=== PATIENT | female | born 1950 | race Caucasian/White ===

== ENCOUNTER 2017-12-20 08:00 | Outpatient (CLI) | payer MEDICARE, MEDICAID, SELFPAY ==
[2017-12-20 09:29] LABS: ALT 61 U/L (12-78); AST 56 U/L (15-37); Albumin 3.3 g/dL (3.4-5.0); Alkaline Phosphatase 86 U/L (46-116); Anion Gap 6.6 mmol/L (3-11); BUN 12 mg/dL (7-18); Bilirubin, Total 0.7 mg/dL (0.2-1.0); CO2 26.4 mmol/L (21.0-32.0); CREATININE 1.13 mg/dL (0.55-1.02); Calcium 8.3 mg/dL (8.5-10.1); Chloride 107 mmol/L (98-107); Cholesterol 166 mg/dL (50-200); Estimated GFR 48.03 (mL/min/1.73m2); Glucose 113 mg/dL (70-100); HDL Cholesterol 44 mg/dL (40-60); LDL CHOLESTEROL 106 mg/dL (<100); Potassium 4.3 mmol/L (3.5-5.1); Sodium 140 mmol/L (136-145); Triglyceride 108 mg/dL (30-150)
== END 2017-12-20 08:20 ==
PROVIDERS: PCP Physician Assistant Medical; Visit Provider Physician Assistant Medical
DX: I10 Essential (primary) hypertension (principal); R78.5 Finding of other psychotropic drug in blood
CPT/HCPCS: 36415; 80053; 80061; 83721

== ENCOUNTER 2018-02-08 02:23 | Outpatient (CLI) | payer MEDICARE, MEDICAID, SELFPAY ==
[2018-02-08 08:54] LABS: ALT 63 U/L (12-78); AST 46 U/L (15-37); Alkaline Phosphatase 80 U/L (46-116); Anion Gap 8.9 mmol/L (3-11); BUN 12 mg/dL (7-18); Bilirubin, Total 0.3 mg/dL (0.2-1.0); CO2 24.1 mmol/L (21.0-32.0); Calcium 8.7 mg/dL (8.5-10.1); Chloride 109 mmol/L (98-107); Cholesterol 160 mg/dL (50-200); Estimated GFR 49.54 (mL/min/1.73m2); Glucose 124 mg/dL (70-100); HDL Cholesterol 43 mg/dL (40-60); LDL CHOLESTEROL 100 mg/dL (<100); Potassium 4.3 mmol/L (3.5-5.1); Sodium 142 mmol/L (136-145); Total Protein 6.6 g/dL (6.4-8.2); Triglyceride 107 mg/dL (30-150)
== END 2018-02-08 02:43 ==
PROVIDERS: PCP Physician Assistant Medical; Visit Provider Physician Assistant Medical
DX: I10 Essential (primary) hypertension (principal); E78.5 Hyperlipidemia, unspecified
CPT/HCPCS: 36415; 80053; 80061; 83721

== ENCOUNTER 2018-03-18 08:45 | Outpatient (REF) | payer MEDICARE, MEDICAID, SELFPAY ==
[2018-03-18 22:44] LABS: ALT 81 U/L (12-78); AST 59 U/L (15-37); Albumin 3.3 g/dL (3.4-5.0); Alkaline Phosphatase 85 U/L (46-116); BUN 12 mg/dL (7-18); Bilirubin, Total 0.6 mg/dL (0.2-1.0); CREATININE 0.92 mg/dL (0.55-1.02); Calcium 8.5 mg/dL (8.5-10.1); Chloride 107 mmol/L (98-107); Glucose 129 mg/dL (70-100); Potassium 4.1 mmol/L (3.5-5.1); Sodium 142 mmol/L (136-145)
== END 2018-03-18 09:05 ==
LOC: NCHCN 08:45
PROVIDERS: PCP Physician Assistant Medical; Visit Provider Nurse Practitioner Family
DX: I10 Essential (primary) hypertension (principal); R60.0 Localized edema
CPT/HCPCS: 80053

== ENCOUNTER 2018-12-30 00:51 | Outpatient (CLI) | payer MEDICARE, MEDICAID, SELFPAY ==
--- NOTE | 2018-12-30 13:02 | DI.MAMMO_ITS ---
EXAM: MG mammo screening CLINICAL HISTORY: Screening, Z12.39 FINDINGS: The breast tissue is of moderate radiodensity. There is no dominant mass. Again demonstrated are calc ifications in the medial portion of each breast unchanged. There has been no interval change when co mpared with the prior images. IMPRESSION: No evidence of malignancy, category 1. Breast density category B. Follow-up surveillance with the ro utine annual screening mammography is recommended.
== END 2018-12-30 01:11 ==
PROVIDERS: PCP Physician Assistant Medical; Visit Provider Nurse Practitioner Family
DX: Z12.31 Encounter for screening mammogram for malignant neoplasm of breast (principal)
CPT/HCPCS: 77063; 77067

== ENCOUNTER 2019-02-19 02:30 | Outpatient (CLI) | payer MEDICARE, MEDICAID, SELFPAY ==
[2019-02-19 09:41] LABS: Anion Gap 9.5 mmol/L (3-11); BUN 10 mg/dL (7-18); CO2 26.5 mmol/L (21.0-32.0); CREATININE 1.14 mg/dL (0.55-1.02); Calcium 8.3 mg/dL (8.5-10.1); Calculated LDL 89 mg/dL; Chloride 107 mmol/L (98-107); Cholesterol 159 mg/dL (50-200); Glucose 116 mg/dL (70-100); HDL Cholesterol 38 mg/dL (40-60); Potassium 4.2 mmol/L (3.5-5.1); Sodium 143 mmol/L (136-145); Triglyceride 160 mg/dL (30-150)
== END 2019-02-19 02:50 ==
PROVIDERS: PCP Nurse Practitioner Family; Visit Provider Nurse Practitioner Family
DX: R73.9 Hyperglycemia, unspecified (principal); I10 Essential (primary) hypertension; E78.5 Hyperlipidemia, unspecified
CPT/HCPCS: 36415; 80048; 80061

== ENCOUNTER 2019-04-24 02:23 | Outpatient (CLI) | payer MEDICARE, MEDICAID, SELFPAY ==
--- NOTE | 2019-04-24 13:44 | DI.DEXA_ITS ---
EXAM: XR DEXA BONE DENSITY W/WO ERIS CLINICAL HISTORY: SCREENING FOR OSTEOPOROSIS IN POSTMENOPAUSAL WOMAN, Z78.0 TECHNIQUE: DEXA scan was performed according to the usual protocol. COMPARISON: No exams were available for comparison FINDINGS: Findings for lumbar spine scanning are T-score 0.3. Previous examination of September 2007 showed lumbar T-score -0.1. Findings for left hip scanning are T-score -0.4 with left femoral neck T-score -0.1. Prior study of September 2007 showed left hip T-score -0.2. Left forearm scanning shows T-score -1.4. Lateral vertebral scanogram shows no evidence of a vertebral compression fracture. IMPRESSION: Findings consistent with osteopenia according to the WHO criteria.
== END 2019-04-24 02:43 ==
PROVIDERS: PCP Nurse Practitioner Family; Visit Provider Nurse Practitioner Family
DX: Z78.0 Asymptomatic menopausal state; M85.88 Other specified disorders of bone density and structure, other site
CPT/HCPCS: 77080

== ENCOUNTER 2019-05-26 11:41 | Outpatient (REF) | payer MEDICARE, MEDICAID, SELFPAY ==
[2019-05-26 19:11] LABS: Anion Gap 8.8 mmol/L (3-11); BUN 15 mg/dL (7-18); CO2 27.2 mmol/L (21.0-32.0); CREATININE 1.11 mg/dL (0.55-1.02); Calcium 8.8 mg/dL (8.5-10.1); Chloride 107 mmol/L (98-107); Estimated GFR 48.88 (mL/min/1.73m2); Glucose 157 mg/dL (74-106); Sodium 143 mmol/L (136-145)
[2019-05-26 19:27] LABS: Hemoglobin A1C 5.5 % (3.8-5.6)
== END 2019-05-26 12:01 ==
LOC: NCHCN 11:41
PROVIDERS: PCP Nurse Practitioner Family; Visit Provider Nurse Practitioner Family
DX: I10 Essential (primary) hypertension (principal); R73.9 Hyperglycemia, unspecified
CPT/HCPCS: 80048; 83036

== ENCOUNTER 2019-12-01 11:23 | Outpatient (REF) | payer MEDICARE, MEDICAID, SELFPAY ==
[2019-12-01 20:32] LABS: Calculated LDL 102 mg/dL (<100); Cholesterol 165 mg/dL (<200); Glucose 149 mg/dL (74-106); HDL Cholesterol 44 mg/dL (40-60); Triglyceride 99 mg/dL (<150)
[2019-12-01 20:46] LABS: Creatine Kinase 70 U/L (26-192)
== END 2019-12-01 11:43 ==
LOC: NCHCN 11:23
PROVIDERS: PCP Nurse Practitioner Family; Visit Provider Nurse Practitioner Family
DX: E78.5 Hyperlipidemia, unspecified (principal); I10 Essential (primary) hypertension; R94.4 Abnormal results of kidney function studies; M85.80 Other specified disorders of bone density and structure, unspecified site; K21.9 Gastro-esophageal reflux disease without esophagitis
CPT/HCPCS: 80061; 82550; 82947

== ENCOUNTER 2019-12-08 10:56 | Outpatient (REF) | payer MEDICARE, MEDICAID, SELFPAY ==
[2019-12-08 20:04] LABS: Hemoglobin A1C 6.3 % (3.8-5.6)
== END 2019-12-08 11:16 ==
LOC: NCHCN 10:56
PROVIDERS: PCP Nurse Practitioner Family; Visit Provider Nurse Practitioner Family
DX: R73.9 Hyperglycemia, unspecified (principal)
CPT/HCPCS: 83036

== ENCOUNTER 2020-01-05 00:34 | Outpatient (CLI) | payer MEDICARE, MEDICAID, SELFPAY ==
--- NOTE | 2020-01-05 | DI.MAMMO_ITS ---
EXAM: MG MAMMO SCREENING CLINICAL HISTORY: SCREENING, Z12.39 TECHNIQUE: Bilateral full field digital CC and MLO mammographic images were obtained with 3D tomosyn thesis and utilizing computer aided detection (CAD). COMPARISON: Available for comparison. FINDINGS: Masses/Architectural Distortion: Stable scattered nodules are seen in both breasts. Microcalcifications: Stable calcifications are seen in both breasts. No suspicious microcalcificatio ns are present. Skin Thickening/Nipple Retraction: None. IMPRESSION: 1. No significant interval change with no specific features of malignancy noted. 2. Unless there is more urgent need, screening mammography is recommended, as per [employer] [place] [employer] guidelines. BI-RADS Category 2 - Benign Findings Breast Density - Category B - Scattered areas of fibroglandular density A negative radiographic report should not delay biopsy if a dominant or clinically suspicious mass is present. Up to ten percent of cancers are not identified on mammography. A negative report may reinforce clinical impression. Adenosis and dense breasts may obscure an underlying neoplasm. False positive reports average 6 to 10%. Patient will receive a letter notifying them of these results.
== END 2020-01-05 00:54 ==
PROVIDERS: PCP Nurse Practitioner Family; Visit Provider Nurse Practitioner Family
DX: Z12.31 Encounter for screening mammogram for malignant neoplasm of breast (principal); N63.20 Unspecified lump in the left breast, unspecified quadrant; N63.10 Unspecified lump in the right breast, unspecified quadrant
CPT/HCPCS: 77063; 77067

== ENCOUNTER 2020-01-12 11:10 | Outpatient (REF) | payer MEDICARE, MEDICAID, SELFPAY ==
[2020-01-12 20:17] LABS: ALT 45 U/L (14-59); AST 37 U/L (15-37); Albumin 3.3 g/dL (3.4-5.0); Alkaline Phosphatase 73 U/L (46-116); Anion Gap 9.6 mmol/L (3-11); BUN 12 mg/dL (7-18); Bilirubin, Total 0.6 mg/dL (0.2-1.0); CO2 24.4 mmol/L (21.0-32.0); CREATININE 1.08 mg/dL (0.55-1.02); Calcium 9.3 mg/dL (8.5-10.1); Chloride 106 mmol/L (98-107); Glucose 141 mg/dL (74-106); Potassium 4.3 mmol/L (3.5-5.1); Sodium 140 mmol/L (136-145); Total Protein 7.1 g/dL (6.4-8.2)
== END 2020-01-12 11:30 ==
LOC: NCHCN 11:10
PROVIDERS: PCP Nurse Practitioner Family; Visit Provider Nurse Practitioner Family
DX: I10 Essential (primary) hypertension (principal)
CPT/HCPCS: 80053

== ENCOUNTER 2020-05-31 16:53 | Outpatient (REF) | payer MEDICARE, MEDICAID, SELFPAY ==
[2020-05-31 16:02] LABS: Anion Gap 10.1 mmol/L (3-11); BUN 14 mg/dL (7-18); CO2 25.9 mmol/L (21.0-32.0); CREATININE 1.1 mg/dL (0.55-1.02); Calcium 9.1 mg/dL (8.5-10.1); Chloride 106 mmol/L (98-107); Estimated GFR 49.25 (mL/min/1.73m2); Glucose 144 mg/dL (74-106); Potassium 4.3 mmol/L (3.5-5.1); Sodium 142 mmol/L (136-145)
== END 2020-05-31 16:54 | disposition home or self-care (01) ==
LOC: NCHCN 16:53
PROVIDERS: PCP Nurse Practitioner Family; Visit Provider Nurse Practitioner Family
DX: I10 Essential (primary) hypertension (principal); R94.4 Abnormal results of kidney function studies
CPT/HCPCS: 80048

== ENCOUNTER → 2020-08-27 10:52 | Outpatient (BNVA) | payer MEDICARE, MEDICAID, SELFPAY | PROVIDERS: PCP Nurse Practitioner Family; Referring Provider Nurse Practitioner Family; Visit Provider Physical Therapy Assistant | DX: Z12.11 Encounter for screening for malignant neoplasm of colon (principal); Z86.010 Personal history of colon polyps; I10 Essential (primary) hypertension ==

== ENCOUNTER 2020-09-30 07:08 | Day surgery (SDC) | payer MEDICARE, MEDICAID, SELFPAY ==
[2020-09-30 07:28] VITALS: BP 141/74; PULSE 79; RESP 18; TEMP 36.1; O2SAT 96
[2020-09-30] MEDS: Lactated Ringers 1,000 ML 80 ML IV (07:40)
--- NOTE | 2020-09-30 07:44 | W.ANESPRE ---
General Info Date of Service Date Performed: 09/30/20 Height: 5 ft 0.25 in Weight: 98.3 kg Body Mass Index (BMI): 41.9 Surgical Procedure: Operation Date: 09/30/20 08:35 Proposed Procedures Side Surgeon el Calles MD Meds Allergies and Home Medications Allergies Allergy/AdvReac Type Severity Reaction Status Date / Time Sulfa (Sulfonamide Allergy Intermediate Skin Rash Unverified 09/30/20 07:21 Antibiotics) adhesive Allergy Skin Rash Unverified 09/30/20 07:21 codeine AdvReac Intermediate palpitation Unverified 09/30/20 07:21 s latex AdvReac localized Unverified 09/30/20 07:21 rash Home Medication Medication Instructions Recorded metoprolol succinate 50 mg PO BID 05/26/13 lisinopril 10 mg PO DAILY tab-cap 03/16/14 Fish Oil 1 ea PO DAILY NS 08/13/17 simvastatin 10 mg PO HS tab-cap NS 08/13/17 calcium carbonate 600 mg calcium 600 mg PO DAILY 06/16/20 (1,500 mg) tablet cholecalciferol (vitamin D3) 25 25 mcg PO DAILY 06/16/20 mcg (1,000 unit) capsule pantoprazole 20 mg tablet,delayed 20 mg PO HS 06/16/20 release bisacodyl 5 mg tablet,delayed 5 mg PO ONCE #4 tab 08/27/20 release famotidine 20 mg tablet 20 mg PO QHS 08/27/20 polyethylene glycol 3350 17 238 g PO ONCE #238 g 08/27/20 gram/dose oral powder Current Visit Medications: Current Medications Generic Name Dose Route Start Last Admin Trade Name Oskarq PRN Reason Stop Dose Admin Ringer's Solution 1,000 mls @ 80 mls/hr 09/30/20 06:00 IV 10/29/20 23:59 INFUSION MARVA IV Miscellaneous Supplies 1 each 09/30/20 06:00 Iv Access IV 10/29/20 23:59 DIRECTED MARVA Sodium Chloride 0 ml 09/30/20 06:00 Normal Saline Flush 10 Ml Syr IV 10/29/20 23:59 PRN PRN Sodium Chloride 0 ml 09/30/20 06:00 Normal Saline 10 Ml Vial IJ 10/29/20 23:59 DIRECTED PRN Sterile Water 0 ml 09/30/20 06:00 Water,Injection,Sterile 10 Ml Vial IJ 10/29/20 23:59 DIRECTED PRN PFSH Active Problems Active Problems: Problem Status Onset Code Chronic disease of both ears H93.93 Chronic serous otitis media of right ear H65.21 Perforation of right tympanic membrane H72.91 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 states she has had this all her life Patent foramen ovale pt. states she has had this all her life Postmenopausal bleeding Prediabetes Right leg pain Rotator cuff syndrome Sebaceous cyst Skin lesion of face Skin neoplasm Surgical History Surgical History (Updated 09/30/20 @ 07:25 by Jolly Clark) Arthroplasty of knee (12/17/15) RIGHT/DR. GORE-menisicus repaired Colonoscopy - MAC (08/20/17) History of cholecystectomy History of knee replacement 09/30/20 Pt denies. only meniscus repairs Hx of dilation and curettage x3 Tobacco Smoking/Tobacco Use Status: Never Alcohol Alcohol Intake: never Substance Use Substance use: Never Substance use type: does not use Vital Signs and Lab Results Vital Signs Most Recent Vital Signs in EMR: Most Recent Vital Signs Temp Pulse Resp BP Pulse Ox 36.1 C L 79 18 141/74 H 96 09/30/20 07:28 09/30/20 07:28 09/30/20 07:28 09/30/20 07:28 09/30/20 07:28 Lab Results Blood Type / Crossmatch: No Data to Display Complete Blood Count: No Data to Display Complete Metabolic Panel: No Data to Display Liver Function Panel: No Data to Display Coagulation Panel: No Data to Display Cardiac Panel: No Data to Display Arterial Blood Gas: No Data to Display Venous Blood Gas: No Data to Display Pancreas Panel: No Data to Display Thyroid Panel: No Data to Display Infectious Disease: No Data to Display Blood Cultures: No Data to Display Toxicology Panel: No Data to Display Imaging and Studies Imaging and Studies Echocardiogram Summary: *STUDY CONCLUSIONS* Summary: 1. Left ventricle: The cavity size was normal. Systolic function was normal. The estimated ejection fraction was 55-60%. 2. Mitral valve: There was mild regurgitation. 3. Right ventricle: The cavity size was normal. Wall thickness was normal. Systolic function was normal. 4. Atrial septum: There was a probable, very small patent foramen ovale. 5. Pulmonary arteries: Pulmonary systolic pressure was >= 30mm Hg. 6. Inferior vena cava: Poorly visualized. Anesthesia Assessment and Plan Anesthesia History Personal History: PONV Family History: No Family History of Anesthesia Complications Exercise Tolerance Exercise Tolerance: Metabolic Equivalents>4 Pertinent Negatives Pertinent Negatives: No Symptoms of GERD, No Major Cardiovascular Symptoms or Complaints (Reports PFO PDA. Cards stated to patient would fix if patient was younger. However has been stable through lifetime without hospitalizations ), No Major Pulmonary Symptoms or Complaints and No History of CVA/TIA Cardiac & Pulmonary Exam Cardiac Exam: Normal S1/S2 Heart Sounds Pulmonary Exam: Clear Bilateral Breath Sounds Airway Exam Known Difficult Airway: No Mallampati Class: 3 Mouth Opening: Narrow (< 3cm) Thyromental Distance: Greater than 3 cm Neck Range of Motion: Full ROM Neck Circumference: Thick Teeth Condition: Normal Dentition ASA Classification ASA Score: ASA 3 Emergency Case?: No NPO Status NPO Status: NPO Clears >2 hours, Solids >8 hours Anesthesia Plan Resuscitation Status: Full Code Anesthesia Technique: General Anesthesia Airway Planned: Natural Airway Monitors Used: Standard Monitors
[2020-09-30 07:58] VITALS: BMI 41.9
--- NOTE | 2020-09-30 08:43 | W.PM.HP.N ---
Date of service: 09/30/20 Time of Service: 08:44 Assessment and Plan Assessment and plan (1) Tubular adenoma of colon: Status: Acute Assessment and plan: Pt here for colorectal cancer screening. She has a history of tubular adenoma, last colonosocpy was in 2018. She has no family history of colon cancer. She has not had any bowel habit changes. History of Present Illness History of Present Illness Chief Complaint: h/o tubular adenoma Narrative: 70 y/o female with history of HTN and GERD presents for colonoscopy screening. Her last screening was in 2018, which was remarkable for tubular adenoma. She denies a family history of colon cancer. She denies any changes in bowel habits including bloody or black tarry stools, abdominal pain, diarrhea or constipation. She denies constitutional symptoms. Denies use of marijuana or any other recreational or illegal drugs. She denies chest pain, palpitations, dyspnea or dyspnea with exertion. She denies prior history or family history of adverse reactions or complications with anesthesia. She believes she experiences nausea post-operatively. The patient denies any history of stroke, [place], seizures, bleeding or clotting disorders. She denies having any implanted metal in her body. [facility] Medical History (Updated 09/30/20 @ 08:54 by Jaswinder Calles MD) Ankle edema Blood glucose elevated Colonic polyp Contact dermatitis Decreased renal function Diverticulosis DJD (degenerative joint disease) GERD (gastroesophageal reflux disease) Hearing loss History of colon polyps History of postoperative nausea and vomiting HTN (hypertension) Hyperlipidemia Obesity Osteopenia Patent ductus arteriosus pt. states she has had this all her life Patent foramen ovale pt. states she has had this all her life Postmenopausal bleeding Prediabetes Right leg pain Rotator cuff syndrome Sebaceous cyst Skin lesion of face Skin neoplasm Surgical History (Updated 09/30/20 @ 07:25 by Jolly Clark) Arthroplasty of knee (12/17/15) RIGHT/DR. GORE-menisicus repaired Colonoscopy - MAC (08/20/17) History of cholecystectomy History of knee replacement 09/30/20 Pt denies. only meniscus repairs Hx of dilation and curettage x3 Social History Smoking/Tobacco Use Status: Never Smoking risk assessment performed?: Yes Alcohol Intake: never Drug use: Never Substance use type: does not use Do you feel safe at home: Yes Do you feel safe in your relationship?: Yes Meds Allergies and Home Medications Allergies Allergy/AdvReac Type Severity Reaction Status Date / Time Sulfa (Sulfonamide Allergy Intermediate Skin Rash Unverified 09/30/20 07:21 Antibiotics) adhesive Allergy Skin Rash Unverified 09/30/20 07:21 codeine AdvReac Intermediate palpitation Unverified 09/30/20 07:21 s latex AdvReac localized Unverified 09/30/20 07:21 rash Home Medications Medication Instructions Recorded Confirmed Type metoprolol succinate 50 mg PO BID 05/26/13 09/30/20 History lisinopril 10 mg PO DAILY tab-cap 03/16/14 09/30/20 History Fish Oil 1 ea PO DAILY NS 08/13/17 09/30/20 History simvastatin 10 mg PO HS tab-cap NS 08/13/17 09/30/20 History calcium carbonate 600 mg calcium 600 mg PO DAILY 06/16/20 09/30/20 History (1,500 mg) tablet cholecalciferol (vitamin D3) 25 25 mcg PO DAILY 06/16/20 09/30/20 History mcg (1,000 unit) capsule pantoprazole 20 mg tablet,delayed 20 mg PO HS 06/16/20 09/30/20 History release bisacodyl 5 mg tablet,delayed 5 mg PO ONCE #4 tab 08/27/20 09/30/20 Rx release famotidine 20 mg tablet 20 mg PO QHS 08/27/20 09/30/20 History polyethylene glycol 3350 17 238 g PO ONCE #238 g 08/27/20 09/30/20 Rx gram/dose oral powder Exam Const General: cooperative, healthy appearing, comfortable and no acute distress Resp Effort & Inspection: normal respiratory effort and able to speak in complete sentences Auscultation: clear to auscultation bilaterally Cardio Rate: regular rate Rhythm: regular rhythm GI Palpation: soft and nontender Neuro General: patient alert, patient awake and patient oriented x3 Psych Appearance: grossly normal Speech and Movement: speech and movement normal Mood: congruent mood Affect: normal affect Attitude: cooperative Thought Process: normal Results Last Vital Signs Temp 97.0 F L 09/30/20 07:28 Pulse 79 09/30/20 07:28 Resp 18 09/30/20 07:28 BP 141/74 H 09/30/20 07:28 Pulse Ox 96 09/30/20 07:28
[2020-09-30 09:56] VITALS: BP 104/48; PULSE 59; RESP 16; TEMP 36.1; O2SAT 96
--- NOTE | 2020-09-30 09:56 | W.COLOREPORT ---
Date of service: 09/30/20 Time of Service: 09:56 Colonoscopy Report Date of procedure: 09/30/20 Pre-op diagnosis general: colorectal cancer screening, h/o tubular adenoma Post-op diagnosis procedure note: other (diverticulosis) Procedure: Colonoscopy Surgeon: Jaswinder Calles Anesthesia Type: MAC Estimated blood loss (mL): 0 Pathology: none sent Complications: None Disposition: same day Prep: Miralax/Dulcolax Findings: Moderate diverticulosis throughout colon, most dense in descending and sigmoid colon Procedure Description: After informed consent was obtained, the patient was taken to the procedure room and placed in a left decubitus position. Monitors were applied and a time out was done. The patient's name, date of , procedure, allergies to medications, and metal in their body were reviewed. The patient was then sedated. Once sedated and comfortable, a digital rectal exam was done. External exam was unremarkable. Internal exam revealed normal sphincter tone, and no palpable masses or gross blood. The colonoscope was then introduced and advanced to the cecum under direct visualization with mild difficulty. Manual external pressure was applied to aid in the passage of the scope. The ileocecal valve and appendiceal orifice were visualized. The prep was good. The scope was then slowly withdrawn over 10 minutes in a circumferential manner to the rectum. In doing so, no polyps were encountered. There was moderate diverticulosis noted throughout the colon, most dense in the descending and sigmoid colon. The mucosa is pink and healthy. In the rectum, the scope was retroflexed, and no iinternal hemorrhoids were noted. The scope was straightened and withdrawn from the anus. The patient tolerated the procedure well, and there were no immediate complications. The patient was taken to the Day Surgery Unit recovery area in good condition. Follow up: 5 years, or with new symptoms
--- NOTE | 2020-09-30 10:03 | W.ANESPOSTOP ---
Postoperative Evaluation Date, Time and Location Date Performed: 09/30/20 Time Performed: 10:03 Patient Location: Day Surgery Unit Vital Signs Most Recent Imported Vital Signs: Most Recent Vital Signs Temp Pulse Resp BP Pulse Ox 36.1 C L 59 L 16 104/48 L 96 09/30/20 09:56 09/30/20 09:56 09/30/20 09:56 09/30/20 09:56 09/30/20 09:56 Pain Score Most Recent Pain Score: Most Recent Pain Score Pain Level 0 09/30/20 09:56 Assessment Mental Status: Awake (Alert & Oriented to Patient Baseline) Airway and Respiratory Function: Patent airway with normal (patient baseline) respiratory exam Cardiovascular Function: Hemodynamically Stable Hydration Status: Adequately Hydrated Nausea & Vomiting: No Nausea or Vomiting Pain: Pt. Denies Any Pain Peripheral Nerve Block: Patient did not receive a nerve block
[2020-09-30 10:33] VITALS: BP 125/60; PULSE 49; RESP 16; TEMP 36; O2SAT 100
== END 2020-09-30 10:52 | disposition home or self-care (01) ==
PROVIDERS: PCP Nurse Practitioner Family; Visit Provider Surgery
PROC: 0DJD8ZZ Inspection of Lower Intestinal Tract, Via Natural or Artificial Opening Endoscopic (ICD-10-PCS; CPT 45378; principal; 2020-09-30 08:30)
DX: Z12.11 Encounter for screening for malignant neoplasm of colon (principal); Z86.010 Personal history of colon polyps; I10 Essential (primary) hypertension; K57.30 Diverticulosis of large intestine without perforation or abscess without bleeding
CPT/HCPCS: G0105; J2001; J2704

== ENCOUNTER 2020-12-01 15:56 | Outpatient (REF) | payer MEDICARE, MEDICAID, SELFPAY ==
[2020-12-01 15:17] LABS: Calculated LDL 103 mg/dL (<100); Cholesterol 165 mg/dL (<200); Glucose 134 mg/dL (74-106); HDL Cholesterol 42 mg/dL (40-60); Triglyceride 100 mg/dL (<150)
== END 2020-12-01 15:57 | disposition home or self-care (01) ==
LOC: NCHCN 15:56
PROVIDERS: PCP Nurse Practitioner Family; Visit Provider Nurse Practitioner Family
DX: E78.5 Hyperlipidemia, unspecified (principal); R73.03 Prediabetes
CPT/HCPCS: 80061; 82947

== ENCOUNTER 2020-12-08 12:50 | Outpatient (REF) | payer MEDICARE, MEDICAID, SELFPAY ==
[2020-12-08 14:45] LABS: Hemoglobin A1C 6.3 % (<5.7)
== END 2020-12-08 12:51 | disposition home or self-care (01) ==
LOC: NCHCN 12:50
PROVIDERS: PCP Nurse Practitioner Family; Visit Provider Nurse Practitioner Family
DX: R73.03 Prediabetes (principal)
CPT/HCPCS: 83036

== ENCOUNTER 2021-06-01 15:05 | Outpatient (REF) | payer MEDICARE, MEDICAID, SELFPAY ==
[2021-06-01 21:11] LABS: Hemoglobin A1C 5.7 % (<5.7)
[2021-06-01 21:12] LABS: Anion Gap 9.4 mmol/L (3-11); BUN 10 mg/dL (7-18); CO2 26.6 mmol/L (21.0-32.0); Chloride 106 mmol/L (98-107); Estimated GFR 54.81 (mL/min/1.73m2); Glucose 182 mg/dL (74-106); Potassium 3.8 mmol/L (3.5-5.1); Sodium 142 mmol/L (136-145)
== END 2021-06-01 15:06 | disposition home or self-care (01) ==
LOC: NCHCN 15:05
PROVIDERS: PCP Nurse Practitioner Family; Visit Provider Nurse Practitioner Family
DX: R73.03 Prediabetes (principal); I10 Essential (primary) hypertension; K21.9 Gastro-esophageal reflux disease without esophagitis; M79.644 Pain in right finger(s)
CPT/HCPCS: 80048; 83036; 84550

== ENCOUNTER 2021-06-02 01:03 | Outpatient (CLI) | payer MEDICARE, MEDICAID, SELFPAY ==
--- NOTE | 2021-06-02 11:10 | DI.RAD_ITS ---
Exam(s) XR THUMB RT EXAM: XR THUMB RT CLINICAL HISTORY: RT THUMB PAIN, M79.644,SWELLING, ? FX. TECHNIQUE: 2D digital imaging was performed of the right finger. Four views were obtained. PA/AP, oblique, and lateral views were obtained. COMPARISON: No exams were available for comparison FINDINGS: BONES: No acute fracture is present. No bony destructive lesion is seen. JOINTS: No dislocation present. There are mild degenerative changes of the hand with joint space mei rowing and periarticular spurring throughout. The findings are seen at the 1st CMC joint and the int erphalangeal joint of the thumb. SOFT TISSUE: Normal. IMPRESSION: Degenerative changes of the thumb. DATA REPOSITORY: RADIATION DOSE DELIVERED:
== END 2021-06-02 01:23 ==
PROVIDERS: PCP Nurse Practitioner Family; Visit Provider Nurse Practitioner Family
DX: M79.644 Pain in right finger(s) (principal); M18.11 Unilateral primary osteoarthritis of first carpometacarpal joint, right hand
CPT/HCPCS: 73140

== ENCOUNTER → 2021-07-04 14:10 | Outpatient (BNVA) | payer MEDICARE, MEDICAID, SELFPAY | PROVIDERS: PCP Nurse Practitioner Family; Referring Provider Nurse Practitioner Family; Visit Provider Student in an Organized Health Care Education/Training Program | DX: M79.644 Pain in right finger(s) (principal); S56.011A Strain of flexor muscle, fascia and tendon of right thumb at forearm level, initial encounter; X58.XXXA Exposure to other specified factors, initial encounter | CPT/HCPCS: 99214 ==

== ENCOUNTER 2021-07-15 00:45 | Outpatient (CLI) | payer MEDICARE, MEDICAID, SELFPAY ==
--- NOTE | 2021-07-15 15:02 | DI.MRI_ITS ---
Exam(s) MR UPPER EXTREMITY RT WO EXAM: MR UPPER EXTREMITY RT WO CLINICAL HISTORY: rt thumb pain, m79.644. TECHNIQUE: Multiplanar multisequence MRI was performed. COMPARISON: None. FINDINGS: The examination is limited due to patient motion artifact. The patient was unable to tolerate repeat images. BONES: There is no fracture or contusion pattern. JOINTS: Mild cystic changes are seen at the triscaphoid articulation and the 1st CMC articulation.. Mild hypertrophic changes are seen at the interphalangeal joint of the thumb. TENDONS: Flexors: Unremarkable. Extensors: Unremarkable. MUSCLES: Unremarkable. MEDIAN NERVE: Unremarkable on this noncontrast examination. SOFT TISSUES: Unremarkable. LIGAMENTS: Unremarkable. OTHER: IMPRESSION: 1. Examination limited by patient motion artifact. 2. Mild degenerative changes seen in the 1st CMC joint and the interphalangeal joint of the thumb. 3. No definite acute ligament or tendon injury. DATA REPOSITORY:
== END 2021-07-15 01:05 ==
PROVIDERS: PCP Nurse Practitioner Family; Visit Provider Student in an Organized Health Care Education/Training Program
DX: M79.644 Pain in right finger(s) (principal); M19.041 Primary osteoarthritis, right hand
CPT/HCPCS: 73218

== ENCOUNTER 2021-12-27 13:01 | Outpatient (REF) | payer MEDICARE, MEDICAID, SELFPAY ==
[2021-12-27 15:43] LABS: ALT 67 U/L (14-59); AST 64 U/L (15-37); HDL Cholesterol 43 mg/dL (40-60); LDL CHOLESTEROL 109 mg/dL (<100)
[2021-12-27 16:10] LABS: Creatine Kinase 161 U/L (26-192)
== END 2021-12-27 13:02 | disposition home or self-care (01) ==
LOC: NCHCN 13:01
PROVIDERS: PCP Nurse Practitioner Family; Visit Provider Nurse Practitioner Family
DX: I10 Essential (primary) hypertension (principal); E78.5 Hyperlipidemia, unspecified
CPT/HCPCS: 82550; 83721; 83718; 84450; 84460

== ENCOUNTER 2022-02-22 18:35 | Outpatient (REF) | payer MEDICARE, MEDICAID, SELFPAY ==
[2022-02-22 15:27] LABS: HCT 36.6 % (36.0-46.0); HGB 12.1 g/dL (11.2-15.7); MCH 31.3 pg (27.0-33.0); MCHC 33.1 % (32.0-36.0); MCV 95 fL (80-95); MPV 12.5 fL (8.0-11.0); Platelet Count 143 10^3/uL (130-400); RBC 3.86 10^6/uL (3.93-5.22); RDW 13.2 % (11.7-14.6); RDW-SD 45.8 fL; WBC 6.79 10^3/uL (4.4-10.8)
[2022-02-22 15:47] LABS: Iron 72 ug/dL (50-170); Total Iron Binding Capacity 309 ug/dL (250-450); Transferrin Sat 23 % (15-50)
[2022-02-22 15:56] LABS: Ferritin 249 ng/mL (8-252); TSH 2.44 uIU/mL (0.36-3.74)
[2022-02-22 16:55] LABS: Hemoglobin A1C 7.1 % (<5.7)
[2022-02-23 09:20] LABS: Hepatitis B Surface Ag Negative (Negative)
[2022-02-23 10:07] LABS: Hepatitis C Ab w Rflx HCV PCR Negative (Negative)
== END 2022-02-22 18:36 | disposition home or self-care (01) ==
LOC: NCHCN 18:35
PROVIDERS: PCP Nurse Practitioner Family; Visit Provider Nurse Practitioner Family
DX: N95.0 Postmenopausal bleeding (principal); R79.89 Other specified abnormal findings of blood chemistry
CPT/HCPCS: 85027; 86803; 87340; 82728; 83036; 83540; 83550; 84443

== ENCOUNTER 2022-03-13 13:27 | Outpatient (REF) | payer MEDICARE, MEDICAID, SELFPAY ==
--- NOTE | 2022-03-13 12:15 | SKI_PTH ---
PATIENT: Oly Tipton LOC: N U#:[id number] AGE/SX: 71/F ROOM: RE03/13/[address]: Samantha Pereyra : 1950 BED: DIS: 03/13/2022 SPEC #: [id number] RECD: 03/14/22 12:12 STATUS: ISHAN REQ #: [id number] LUCIA: 03/13/22 12:[address]: Samantha Pereyra DEPT: Surgical Specimen RECD BY: Betsy Swift ENTERED: 03/14/22 12:14 SP TYPE: SKI OTHR DR: Edna Gil MD Tissues: 1 - SKIN BIOPSY(SHAVE/PUNCH) Procedures: SKIN LEVEL 4 Comments: [id number]
== END 2022-03-13 13:28 | disposition home or self-care (01) ==
LOC: LBN 13:27
PROVIDERS: PCP Nurse Practitioner Family; Visit Provider Registered Nurse Maternal Newborn
DX: L82.0 Inflamed seborrheic keratosis (principal)
CPT/HCPCS: 88305

== ENCOUNTER → 2022-03-16 02:44 | Outpatient (CLI) | payer MEDICARE, MEDICAID, SELFPAY ==
--- NOTE | 2022-03-16 13:06 | DI.MAMMO_ITS ---
Exam(s) MAMMO SCREENING EXAM: MAMMO SCREENING CLINICAL HISTORY: SCREENING, Z12.39 TECHNIQUE: Mammograms were interpreted according to the usual protocol including computer analysis w Able Device CAD system, tomosynthesis and C-view imaging. COMPARISON: FINDINGS: The breasts are of moderate density with fairly symmetrical distribution of fibroglandular tissue. T here are numerous groups of benign-appearing calcifications seen bilaterally. These appear stable in comparison with prior examinations including December 2019. There are few areas of nodularity seen bilaterally, most of these appear unchanged in comparison with prior studies. There is an area of nodularity of the retroareolar portion of the right breast seen on CC and MLO views which appears more prominent than on prior examinations, spot compression views o f this area and breast ultrasound recommended for further evaluation.. IMPRESSION: Additional mammographic views of the right breast requested as described above. Breast ultrasound al so requested on the right. BI-RADS Category 0 - Assessment Incomplete: Need additional imaging evaluation Breast Density - Category B - Scattered areas of fibroglandular density
== END ==
PROVIDERS: PCP Nurse Practitioner Family; Visit Provider Nurse Practitioner Family
DX: Z12.31 Encounter for screening mammogram for malignant neoplasm of breast (principal); R92.8 Other abnormal and inconclusive findings on diagnostic imaging of breast
CPT/HCPCS: 77063; 77067

== ENCOUNTER 2022-03-20 11:25 | Outpatient (REF) | payer MEDICARE, MEDICAID, SELFPAY ==
--- NOTE | 2022-03-20 11:10 | ENDOMET_PTH ---
PATIENT: Oly Tipton LOC: [facility] U#:[id number] AGE/SX: 71/F ROOM: RE03/20/[address]: Mahi Pitts MD : 1950 BED: DIS: 03/20/2022 SPEC #: [id number] RECD: 03/20/22 12:58 STATUS: ISHAN REQ #: [id number] LUCIA: 03/20/22 11:[address]: Mahi Pitts DEPT: Surgical Specimen RECD BY: Kalina Larkin ENTERED: 03/20/22 12:58 SP TYPE: Endomet OTHR DR: Edna Gil Tissues: 1 - ENDOMETRIUM BX/LISSETTEETTE Procedures: GROSS AND MICRO LEVEL 4 IMMUNOPEROXIDASE STAIN Comments: [id number]
== END 2022-03-20 11:26 | disposition home or self-care (01) ==
LOC: LBN 11:25
PROVIDERS: PCP Nurse Practitioner Family; Visit Provider Obstetrics & Gynecology
DX: C54.1 Malignant neoplasm of endometrium (principal)
CPT/HCPCS: 88305; 88361

== ENCOUNTER 2022-03-28 01:34 | Outpatient (CLI) | payer MEDICARE, MEDICAID, SELFPAY ==
--- NOTE | 2022-03-28 07:45 | DI.US_ITS ---
Exam(s) US ABDOMEN PELVIS EXAM: US ABDOMEN PELVIS CLINICAL HISTORY: ELEVATED LFTS, R79.89, POSTMENOPAUSAL BLEEDING, N95.0; ? STEATOSIS TECHNIQUE: Ultrasound abdomen performed using standard protocol. COMPARISON: No exams were available for comparison FINDINGS: Examination limited by patient body habitus and overlying bowel. ABDOMEN ABDOMINAL AORTA AND IVC: Visualized portions normal caliber. PANCREAS: Normal where visualized. LIVER: The liver is mildly echogenic. The liver has a nodular contour. The findings raise a questio n of a pack cirrhosis. The liver measures 15.3 cm long. Hepatopedal flow in the Portal Vein. GALLBLADDER:Status post cholecystectomy. BILIARY SYSTEM: Common bile duct measures 8.6 mm.. No intrahepatic biliary ductal dilation. KIDNEYS: Kidneys are symmetric in size. No evidence of renal calculi. No evidence of hydronephrosis. No renal mass or cyst identified. SPLEEN: Not enlarged. ASCITES: None seen. PELVIC: A transabdominal only examination was performed. UTERUS: Position: Anteverted. Size: 8.5 long by 4.8 AP by 7.6 transverse cm Endometrium: 2.2 cm. The endometrium is homogeneously echogenic. No definite discrete mass is seen. Myometrium: Unremarkable. Cervix: Unremarkable. OVARIES: The ovaries were not visualized on this examination. No adnexal mass is seen. CUL-DE-SAC: Free fluid: None. IMPRESSION: 1. Examination limited by patient body habitus and overlying bowel. 2. Findings in the liver raising the question of hepatic cirrhosis. 3. Fatty infiltration of the liver. 4. Status post cholecystectomy. 5. Thickened endometrial stripe in this postmenopausal patient. Further evaluation is warranted. Gy necologic consult should be considered. DATA REPOSITORY:
== END 2022-03-28 01:54 ==
LOC: DI 01:34
PROVIDERS: PCP Nurse Practitioner Family; Visit Provider Nurse Practitioner Family
DX: K76.0 Fatty (change of) liver, not elsewhere classified (principal); R79.89 Other specified abnormal findings of blood chemistry; N95.0 Postmenopausal bleeding
CPT/HCPCS: 76700; 76856

== ENCOUNTER → 2022-03-28 01:34 | Outpatient (CLI) | payer MEDICARE, MEDICAID, SELFPAY ==
--- NOTE | 2022-03-28 10:15 | DI.MAMMO_ITS ---
Exam(s) MG MAMMO SCREEN CALL BACK UNI US BREAST RT LIMITED EXAM: MG MAMMO SCREEN CALL BACK UNI and U/S breast RT limited CLINICAL HISTORY: RETROAREOLAR NODULARITY, RT BREAST, MORE PROMINENT THAN PRIOR EXAMS. TECHNIQUE: Craniocaudal and mediolateral oblique Full Field Digital Mammography views of the right b reast with Computer Aided Diagnosis followed by Tomosynthesis and right breast ultrasound. COMPARISON: Comparison is made with prior examinations. FINDINGS: Mammography/Tomosynthesis: Masses/Architectural Distortion: The area of concern in the retroareolar region of the right breast i s less prominent on the current examination. No areas of architectural distortion are seen. Microcalcifictions: No suspicious pleomorphic-type are seen. Skin Thickening/Nipple Retraction: None. Limited right breast US: Echotexture: Normal appearance of the glandular tissue. Shadowing: No suspicious foci. Cyst: There is a 0.5 x 0.2 cm cyst at the 2 o'clock position of the right breast 1 cm from the nipple . Solid lesions: None seen. Ductal dilation: None. IMPRESSION: 1. No evidence of malignancy is noted. 2. A six-month follow-up right mammogram is recommended for re-evaluation. 3. The findings were discussed with the patient on the date of the examination. BI-RADS Category 3 - 6 month - Probably Benign Finding: Recommend follow-up imaging in 6 months Breast Density - Category B - Scattered areas of fibroglandular density Breast density Category C or D implies that the patient has dense breast tissue. Dense breast tissue can make it harder to find cancer on a mammogram. Dense breast tissue is also associated with an incr eased risk of breast cancer. This information about the result of the mammogram report was provided to the patient to raise their awareness. Use this report when you speak with the patient about their risks for breast cancer, which includes their family history. At that time, you may recommend additional screening tests (Ultrasoun d or MRI) as these tests may add significant information. A negative radiographic report should not delay biopsy if a dominant or clinically suspicious mass is present. Up to ten percent of cancers are not identified on mammography. A negative report may reinforce clinical impression. Adenosis and dense breasts may obscure an underlying neoplasm. False positive reports average 6 to 10%. Patient will receive a letter notifying them of these results.
== END ==
PROVIDERS: PCP Nurse Practitioner Family; Visit Provider Nurse Practitioner Family
DX: R92.8 Other abnormal and inconclusive findings on diagnostic imaging of breast (principal); Z12.31 Encounter for screening mammogram for malignant neoplasm of breast
CPT/HCPCS: 76642; 77063; 77067; 76700; 76856

== ENCOUNTER 2022-04-04 12:49 | Outpatient (REF) | payer MEDICARE, MEDICAID, SELFPAY ==
--- NOTE | 2022-04-04 11:30 | SKI_PTH ---
PATIENT: Oly Tipton LOC: NCN #:[id number] AGE/SX: 71/F ROOM: RE04/04/[address]: Edna Gil : 1950 BED: DIS: 04/04/2022 SPEC #: [id number] RECD: 04/04/22 17:14 STATUS: ISHAN RE #: [id number] LUCIA: 04/04/22 11:[address]: Edna Gil DEPT: Surgical Specimen RECD BY: Kalina Larkin Tissues: 1 - SKIN BIOPSY(SHAVE/PUNCH) 2 - SKIN BIOPSY(SHAVE/PUNCH) Procedures: SKIN LEVEL 4 Comments: [id number]
== END 2022-04-04 12:50 | disposition home or self-care (01) ==
LOC: NCHCN 12:49
PROVIDERS: PCP Nurse Practitioner Family; Visit Provider Nurse Practitioner Family
DX: L82.1 Other seborrheic keratosis (principal)
CPT/HCPCS: 88305

== ENCOUNTER 2022-07-27 18:48 | Inpatient (IN) | payer MEDICARE, MEDICAID, SELFPAY ==
[2022-07-27] VITALS (28 sets, daily range): BP systolic 123–180; BP diastolic 46–80; PULSE 65–86; RESP 14–31; TEMP 36.4; O2SAT 95–99
--- NOTE | 2022-07-27 18:45 | RT.EKG_ITS ---
APPROVED REPORT Exam: Resting ECG Reason for Exam: chest pain Patient Location: E HR:83 bpm ECG Measurements Heart Rate 83 AXIS RI 147 P -2 QRSd 79 QRS -14 QT 390 T 29 QTc 452 Conclusion Sinus rhythm...normal P axis, V-rate 60- 99 Atrial premature complex...SV complex w/ short R-R interval Inferior infarct, old...Q >35mS, II III aVF. Sinus. PACs. No STEMI. I have reviewed and interpreted ECG and agree with software generated interpretation.
--- NOTE | 2022-07-27 18:45 | DI.CT_ITS ---
Exam(s) CT THORAX ABD/PEL CTA EXAM: CT THORAX ABD/PEL CTA CLINICAL HISTORY: chest and abd pain. TECHNIQUE: Imaging Protocol: Axial CT angiography was performed with multi-slice acquisition and m ulti-planar and/or 3D reconstructions. CONTRAST MATERIAL: Intravenous: Omnipaque 350 Contrast volume:structured data in ml Oral: / no COMPARISON: No exams were available for comparison FINDINGS: CHEST: Pulmonary Arteries: No evidence of filling defect to suggest pulmonary emboli. Tracheobronchial tree: Patent where visualized. Mediastinum and Yesenia: No dominant adenopathy or fluid collection. Pulmonary parenchyma: Limited evaluation due to respiratory motion and expiratory changes. No consol idation or dominant measurable mass. Pleura: No effusion or pneumothorax. Heart: Left atrial and ventricular dilatation.. No coronary artery calcifications are seen. Aorta: Thoracic aorta non-dilated. No visible atherosclerotic changes. Bones: Degenerative changes in the spine. No compression fractures. Tubes, Catheters, and Lines: ABDOMEN AND PELVIS: Exam limited by patient body habitus and arm position. Abdomen: Celiac axis/mesenteric arteries: No evidence of occlusion or significant stenosis. Renal Arteries: No evidence of occlusion or significant stenosis. There is a single renal artery per fusing the right kidney. Two left renal arteries. Aorta: No evidence of occlusion or significant stenosis. No aneurysm or dissection. Minimal athe rosclerotic changes distal abdominal aorta Pelvis: Iliac Arteries: No evidence of occlusion or significant stenosis. Common Femoral Arteries: No evidence of occlusion or significant stenosis. ABDOMEN: Liver: Cirrhotic appearing. Portal, Superior Mesenteric, and Splenic Veins: Unremarkable. No varices seen. Gallbladder and Biliary Tract: Status post cholecystectomy. Dilated common bile duct, 13 millimeter diameter.. 6 millimeter nodule seen distally in the common bile duct. Pancreas: Normal density, no abnormal calcifications or inflammatory process. Spleen: Normal. Adrenals: No masses seen. Kidneys: Normal size, contour and axis. No radiodense stones or obstructive uropathy. No masses seen. Bowel: Diverticulosis. No evidence of diverticulitis. No obstruction or bowel wall thickening. Appe ndix is unremarkable. Peritoneal Cavity: No ascites, collection or mesenteric inflammatory response. Lymph Nodes: Within normal limits. Bones: Degenerative changes in the spine and both hips.. No compression fractures. Soft Tissues: Unremarkable. PELVIS: Bladder: Symmetric distention, no gross wall thickening. Reproductive Organs: Status post hysterectomy. Lymph Nodes: Within normal limits. Bones: Within normal limits. IMPRESSION: Mild atherosclerotic changes in the abdominal aorta. No evidence of dissection or aneurysm. No evidence of pulmonary embolism. Cirrhotic appearing liver. Status post cholecystectomy dilatation of the common bile duct. 6 millimeter nodule versus stone in the distal common duct. MRCP could be considered for further evaluation. RADIATION DOSE DELIVERED: 1,237.01mGy.cm Total DLP 1,237.01mGy.cm Total DLP DATA REPOSITORY: All CT scans at this facility are submitted to the National Radiology Data Registry (NRDR) Dose Index Registry (DIR) with the [employer] (ACR). RADIATION OPTIMIZATION: All CT scans at this facility use at least one of these dose optimization te chniques: automated exposure control; mA and/or kV adjustment per patient size (includes targeted exa ms where dose is matched to clinical indication); or iterative reconstruction.
[2022-07-27 19:10] LABS: Abs Immature Grans 0.03 10^3/uL (0.0-0.06); Absolute Basophil Count 0.04 10^3/uL (0.0-0.2); Absolute Eosinophil Count 0.07 10^3/uL (0.0-0.7); Absolute Lymphocyte Count 1.31 10^3/uL (1.2-3.4); Absolute Monocyte Count 0.41 10^3/uL (0.1-0.8); Absolute Neutrophil Count 4.39 10^3/uL (1.2-6.7); Basophils % 0.6; Eosinophils % 1.1; HCT 37.6 % (36.0-46.0); HGB 12.1 g/dL (11.2-15.7); Immature Grans % 0.5; MCH 30.3 pg (27.0-33.0); MCHC 32.2 % (32.0-36.0); MCV 94 fL (80-95); MPV 11.8 fL (8.0-11.0); Monocytes % 6.6; Neutrophils % 70.2; Platelet Count 117 10^3/uL (130-400); RBC 3.99 10^6/uL (3.93-5.22); RDW 14.4 % (11.7-14.6); WBC 6.25 10^3/uL (4.4-10.8)
[2022-07-27 19:23] LABS: ALT 250 U/L (14-59); AST 236 U/L (15-37); Albumin 3.2 g/dL (3.4-5.0); Alkaline Phosphatase 322 U/L (46-116); BUN 13 mg/dL (7-18); Bilirubin, Total 2.5 mg/dL (0.2-1.0); Calcium 9.1 mg/dL (8.5-10.1); Chloride 105 mmol/L (98-107); Estimated GFR 59.86 (mL/min/1.73m2); Glucose 183 mg/dL (74-106); Lipase 53 U/L (16-77); Potassium 3.9 mmol/L (3.5-5.1); Sodium 139 mmol/L (136-145); Total Protein 7.7 g/dL (6.4-8.2); Troponin I < 50 ng/L (<or=60)
[2022-07-27] MEDS: Normal Saline - Diluent 50 ML VIAL IJ (19:41)
[2022-07-27] MEDS: Omnipaque 350 MG/ML 100 ML BTL IJ (19:42)
[2022-07-27] MEDS: Normal Saline Flush 10 ML SYR IVP (19:43)
--- NOTE | 2022-07-27 20:25 | DI.VRAD_ITS ---
PROCEDURE INFORMATION: Exam: CTA Chest With Contrast CTA Abdomen and Pelvis With Contrast Exam date and time: 07/27/2022 7:41 PM Age: 72 years old Clinical indication: Chest wall pain; Abdominal pain; Generalized; Prior surgery; Surgery date: 1-6 months; Surgery type: Hysterectomy; Additional info: Chest and abd pain TECHNIQUE: Imaging protocol: Computed tomographic angiography of the chest with contrast. Computed tomographic angiography of the abdomen and pelvis with contrast. 3D rendering (Not supervised by radiologist): MIP and/or 3D reconstructed images were created by the technologist. Radiation optimization: All CT scans at this facility use at least one of these dose optimization techniques: automated exposure control; mA and/or kV adjustment per patient size (includes targeted exams where dose is matched to clinical indication); or iterative reconstruction. Contrast material: OMNI 350; Contrast volume: 100 ml; Contrast route: INTRAVENOUS (IV); COMPARISON: MR UPPER EXTREMITY RT WO 07/15/2021 2:34 PM FINDINGS: VASCULATURE: Pulmonary arteries: No evidence of pulmonary embolism. Aorta: Normal thoracic and abdominal aorta without aneurysm or dissection. The major vessels are patent. CHEST: Lungs: No airspace consolidation or ground-glass opacities. Pleural spaces: No pleural effusion or pneumothorax. Heart: Cardiomegaly. No pericardial effusion. ABDOMEN AND PELVIS: Liver: Cirrhotic liver morphology. Calcified focus in the right lobe. Gallbladder and bile ducts: Cholecystectomy. Dilatation of the CBD with questionable densities within the lumen. Pancreas: Unremarkable. No mass. No ductal dilation. Spleen: Unremarkable. No splenomegaly. Adrenal glands: Unremarkable. No mass. Kidneys and ureters: Unremarkable. No solid mass. No hydronephrosis. Stomach and bowel: No evidence of bowel obstruction. Colonic diverticulosis without diverticulitis. No mucosal thickening. Appendix: Normal appendix. Intraperitoneal space: Unremarkable. No free air. No significant fluid collection. Urinary bladder: Unremarkable. No mass. Reproductive: Hysterectomy. Lymph nodes: Unremarkable. No enlarged lymph nodes. Bones/joints: No acute fracture. Soft tissues: Unremarkable. IMPRESSION: 1. No evidence of aortic dissection. 2. Cirrhotic liver morphology. 3. Questionable densities in the CBD. Consider follow-up MRCP if there is concern for choledocholithiasis. Dictated and Authenticated by: Benjamín Hansen MD. Ordering:OSEAS Gilman MD
[2022-07-27 21:19] LABS: Source Nasal/Nares
[2022-07-27 22:04] LABS: ESR 44 mm/hr (0-30)
--- NOTE | 2022-07-27 22:04 | ED.GENADUL_ITS ---
Discharge Plan Disposition Patient Disposition: Admit to [facility] Discharge Details Clinical Impression: Choledocholithiasis with obstruction, Chest pain Admit Date/Time: 07/27/22 23:45 Admit Provider: Farhan Contreras Attending Provider: Farhan Contreras Primary Care Provider: Edna Gil ED Provider: Kalina Melgar Discharge Data Discharge Date/Time-TO BE ENTERED AT DEPARTURE: 07/28/22 00:50 Medical Decision Making 72-year-old female presents with chest and epigastric pain CTA shows evidence of possible choledocholithiasis recommendation for MRCP Patient does have epigastric tenderness on exam, LFTs are elevated, in the 200s, no elevation in lipase, bilirubin elevated at 2.5, acute for patient Since her symptoms are related to intra-abdominal pathology, however she does have chest pain and I think would benefit from repeat troponin and further cardiac observation Dr. Molina is involved in care and will perform MRCP and consultation tomorrow Patient has been calm and cooperative throughout this encounter No antibiotics indicated at this time HPI General Date/Time Provider Initiated Documentation: 07/27/22 18:49 . HPI Narrative: This 72-year-old female presents with past medical history of uterine cancer, status post hysterectomy approximately 2 months ago and radiation. She presents with report of chest pain which has happened twice in the past 3 days. She states her first episode was at rest lasted approximately half an hour. States her second episode started today while she was making dinner approximately an hour prior to arrival and persisted until she received nitroglycerin. She states within minutes the nitroglycerin alleviated her pain. She denies any fever or chills. She denies any nausea or vomiting. Related Data Home Medications Medication Instructions Recorded Confirmed lisinopril 5 mg tablet 10 mg PO DAILY 03/16/14 07/27/22 Fish Oil 340 mg-1,000 mg capsule 1 ea PO DAILY 08/13/17 07/27/22 (omega-3 fatty acids-fish oil) simvastatin 10 mg tablet 10 mg PO HS 08/13/17 07/27/22 calcium carbonate 600 mg calcium 600 mg PO DAILY 06/16/20 07/27/22 (1,500 mg) tablet cholecalciferol (vitamin D3) 25 25 mcg PO DAILY 06/16/20 07/27/22 mcg (1,000 unit) capsule famotidine 20 mg tablet 20 mg PO QHS 08/27/20 07/27/22 ibuprofen 800 mg tablet 800 mg PO TID PRN 06/15/21 07/27/22 pantoprazole 20 mg tablet,delayed 20 mg PO .QOD 04/24/22 07/27/22 release metformin 750 mg tablet,extended 750 mg PO DAILY 04/25/22 07/27/22 release 24 hr metoprolol tartrate 50 mg tablet 50 mg PO BID 04/25/22 07/27/22 Allergies Allergy/AdvReac Type Severity Reaction Status Date / Time Sulfa (Sulfonamide Allergy Intermediate Skin Rash Unverified 07/27/22 18:55 Antibiotics) adhesive Allergy Skin Rash Unverified 07/27/22 18:55 codeine AdvReac Intermediate palpitation Unverified 07/27/22 18:55 s latex AdvReac localized Unverified 07/27/22 18:55 rash neoprene Allergy Intermediate Uncoded 07/27/22 18:55 General Stated Complaint: Chest Pain DAVID: 2 PFSH All Active Problems (Updated 07/29/22 @ 19:02 by ANUSHKA Calvert) Chest pain (Acute) Discharge planning issues (Acute) Cirrhosis (Acute) Type 2 diabetes mellitus (Chronic) Choledocholithiasis with obstruction (Acute) Conductive hearing loss in left ear (Acute) Acute serous otitis media, left ear (Acute) Total perforations of tympanic membrane, right ear (Acute) Nail dystrophy (Acute) Hyperlipidemia (Chronic) HTN (hypertension) (Chronic) Postmenopausal bleeding (Acute) Tubular adenoma of colon (Acute) history of colonic polyps Diverticulosis (Acute ~09/2020) Medical History Ankle edema Blood glucose elevated 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 states she has had this all her life Patent foramen ovale pt. states she has had this all her life Perforation of right tympanic membrane Prediabetes Right leg pain Rotator cuff syndrome Rupture of flexor tendon of thumb Sebaceous cyst Seborrheic dermatitis Seborrheic keratosis Skin lesion of face Skin neoplasm TMJ dysfunction Tubular adenoma of colon (08/20/17) Surgical History Arthroplasty of knee (12/17/15) RIGHT/DR. GORE-menisicus repaired Colonoscopy - MAC (08/20/17) History of cholecystectomy History of colonoscopy (~09/2020) History of knee replacement 09/30/20 Pt denies. only meniscus repairs Hx of dilation and curettage x3 S/P skin biopsy Social History Smoking/Tobacco Use Status: Never Smoking risk assessment performed?: Yes Alcohol Intake: never Drug use: Never Substance use type: does not use Current gender identity: female Do you feel safe at home: Yes Do you feel safe in your relationship?: Yes Female Reproductive History Menstrual Age of Menarche: 11 control method: none History History 1 Para 1 Hx # Term Pregnancies Multiple births Hx # Pregnancies Ectopic pregnancies AB induced Hx Number of Living Children AB spontaneous Past Pregnancies Del. Date GA/Weeks # Preg Succ Route Wgt Sex Labor Lgth Anesth esia Location Prov Complic 01/26/85 40 No Yes vaginal 2040.166 g Male Delivery Date: 01/26/85 Last Updated by: Debi Murphy Pt reports had placenta adhered to uterine wall and went right to OR for D&C. Pt hospitalized from about 7 months until delivery for placental issues. Exam Const General: cooperative and comfortable Orientation: alert and oriented x3 Eyes Pupils: PERRL Resp Effort & Inspection: normal respiratory effort Auscultation: clear to auscultation bilaterally Cardio Rate: regular rate Rhythm: regular rhythm GI Other: Epigastric abdominal tenderness, chest wall tenderness, well-healing approximated surgical site Skin General skin exam: no rashes or lesions noted Neuro General: patient alert and patient oriented x3 Course Vital Signs Vital signs: Vital Signs Temperature 36.4 C 07/27/22 18:47 Pulse 82 07/27/22 18:47 Respiratory Rate 16 07/27/22 18:47 Blood Pressure 123/61 07/27/22 18:47 Pulse Oximetry 96 07/27/22 18:47 Temperature 36.4 C 07/27/22 18:47 Temperature Source Oral 07/27/22 18:47 Pulse 82 07/27/22 21:46 Pulse 86 07/27/22 21:46 Respiratory Rate 18 07/27/22 21:46 Respiratory Effort Normal, Non-Labored 07/27/22 19:26 Respiratory Depth Normal 07/27/22 19:26 Respiratory Pattern Normal 07/27/22 19:26 Blood Pressure 150/78 H 07/27/22 21:46 Blood Pressure Mean 90 07/27/22 21:46 Pulse Oximetry 99 07/27/22 21:46 Oxygen Delivery Method Room Air 07/27/22 18:47 Oxygen Flow Rate 0 07/27/22 18:47 Pain Level 6 07/27/22 18:47 Lab/Test Results Lab/Test Results: Laboratory Tests Range/Units 07/27/22 07/27/22 07/27/22 18:56 18:56 18:56 WBC (4.4-10.8) 10^3/uL 6.25 RBC (3.93-5.22) 10^6/uL 3.99 Hgb (11.2-15.7) g/dL 12.1 Hct (36.0-46.0) % 37.6 MCV (80-95) fL 94 MCH (27.0-33.0) pg 30.3 MCHC (32.0-36.0) % 32.2 RDW (11.7-14.6) % 14.4 Plt Count (130-400) 10^3/uL 117 L MPV (8.0-11.0) fL 11.8 H Immature Gran % 0.5 Neutrophils % 70.2 Lymphocytes % 21.0 Monocytes % 6.6 Eosinophils % 1.1 Basophils % 0.6 Nucleated RBC % (0.0-0.3) % 0.0 Absolute Neutrophils (1.2-6.7) 10^3/uL 4.39 Absolute Lymphocytes (1.2-3.4) 10^3/uL 1.31 Absolute Monocytes (0.1-0.8) 10^3/uL 0.41 Absolute Eosinophils (0.0-0.7) 10^3/uL 0.07 Absolute Basophils (0.0-0.2) 10^3/uL 0.04 ESR (0-30) mm/hr 44 H Sodium (136-145) mmol/L 139 Potassium (3.5-5.1) mmol/L 3.9 Chloride (98-107) mmol/L 105 Carbon Dioxide (21.0-32.0) mmol/L 24.0 Anion Gap (3-11) mmol/L 10.0 BUN (7-18) mg/dL 13 Creatinine (0.55-1.02) mg/dL 1.0 Est GFR (CKD-EPI 2020) (mL/min/1.73m2) 59.86 Glucose (74-106) mg/dL 183 H Calcium (8.5-10.1) mg/dL 9.1 Total Bilirubin (0.2-1.0) mg/dL 2.5 H AST (15-37) U/L 236 H ALT (14-59) U/L 250 H Alkaline Phosphatase (46-116) U/L 322 H Troponin I (<or=60) ng/L < 50 Total Protein (6.4-8.2) g/dL 7.7 Albumin (3.4-5.0) g/dL 3.2 L Lipase (16-77) U/L 53 COVID-19 Source Range/Units 07/27/22 21:15 WBC (4.4-10.8) 10^3/uL RBC (3.93-5.22) 10^6/uL Hgb (11.2-15.7) g/dL Hct (36.0-46.0) % MCV (80-95) fL MCH (27.0-33.0) pg MCHC (32.0-36.0) % RDW (11.7-14.6) % Plt Count (130-400) 10^3/uL MPV (8.0-11.0) fL Immature Gran % Neutrophils % Lymphocytes % Monocytes % Eosinophils % Basophils % Nucleated RBC % (0.0-0.3) % Absolute Neutrophils (1.2-6.7) 10^3/uL Absolute Lymphocytes (1.2-3.4) 10^3/uL Absolute Monocytes (0.1-0.8) 10^3/uL Absolute Eosinophils (0.0-0.7) 10^3/uL Absolute Basophils (0.0-0.2) 10^3/uL ESR (0-30) mm/hr Sodium (136-145) mmol/L Potassium (3.5-5.1) mmol/L Chloride (98-107) mmol/L Carbon Dioxide (21.0-32.0) mmol/L Anion Gap (3-11) mmol/L BUN (7-18) mg/dL Creatinine (0.55-1.02) mg/dL Est GFR (CKD-EPI 2020) (mL/min/1.73m2) Glucose (74-106) mg/dL Calcium (8.5-10.1) mg/dL Total Bilirubin (0.2-1.0) mg/dL AST (15-37) U/L ALT (14-59) U/L Alkaline Phosphatase (46-116) U/L Troponin I (<or=60) ng/L Total Protein (6.4-8.2) g/dL Albumin (3.4-5.0) g/dL Lipase (16-77) U/L COVID-19 Source Nasal/Nares
[2022-07-27 22:14] LABS: COVID-19 PCR Negative (Negative)
[2022-07-27 22:33] LABS: Troponin I < 50 ng/L (<or=60)
--- NOTE | 2022-07-27 23:45 | W.PM.HP.N ---
Date of service: 07/27/22 Time of Service: 23:45 Assessment and Plan Assessment and plan (1) Choledocholithiasis with obstruction: Start date: 07/27/22 Status: Acute Assessment and plan: This is a 70-year-old lady who is status postcholecystectomy who had recent major surgery with hysterectomy for uterine cancer and radiation therapy afterwards with complications of a mixed colon requiring repair. This is slowly resolved but now she has presenting 3 days of intermittent chest pain going straight to her back with associated upper abdominal discomfort. She did respond to nitroglycerin sublingually but troponins were negative and there is no evidence of cardiac ischemia or event. Labs was consistent with choledochal lithiasis by imaging with obstruction and acute elevation of patient's borderline elevated liver functions in the past. Her ALT and AST usually in the 60 range and now over the 250 range meaning 4 times elevated. Total bilirubin is up above 2 PT/INR pending. Sed rate and CRP were slightly up. WBC was not elevated and she had no fever indicating less likely that she has infection with cholangitis. She will watch closely for this complication. She will be kept n.p.o. with fluids resuscitation and sliding scale coverage for her diabetes with her usual antihypertensives to be continued if her blood pressure tolerates and otherwise can be adjusted. Surgery has been consulted and ordered MRCP which GI at [facility] also recommended for some reason rather than having ERCP done immediately. There may be a problem with scheduling the down and back MRCP because of volume and if she cannot be done tomorrow she may have to wait until the first of next week. If she exacerbates quickly she will be higher on the list for transfer and treatment. We will trend labs and control pain with Toradol and Tylenol IV. She is a full code (2) Type 2 diabetes mellitus: Status: Chronic Assessment and plan: Before meals and at bedtime coverage with sliding scale glucometer measurements and short acting insulin. (3) HTN (hypertension): Status: Chronic Assessment and plan: Continue outpatient medications adjusting as needed during the hospital stay. (4) Hyperlipidemia: Status: Chronic Assessment and plan: Continue outpatient statin therapy and check lipids. (5) Endometrial carcinoma: Status: Resolved Assessment and plan: With surgery in April 2022 and slow recovery with complications of a neck: Which have healed. She had complete removal with radiation therapy afterwards and has no evidence of disease per patient. This was diagnosed as patient had postmenopausal bleeding. History of Present Illness History of Present Illness Chief Complaint: Abdominal pain going to the back at rest and with exertion NTG responsive. Narrative: Chest pain going to back and upper abdomen with 2 episodes of the last 3 days 1 with activity and when at rest. The second episode did respond to nitroglycerin sublingually with EMS administering. She brought to the ED and had a negative cardiac work-up with negative troponins and a CTA of the chest and abdomen did reveal choledocholithiasis with obstruction. Liver functions also were consistent with choledochal lithiasis with obstruction. Patient was continued to have some discomfort to palpation but no rebound and no positive Alexandra sign. She had no discomfort in the epigastrium along as with pancreatitis and she denied significant nausea and vomiting. She was comfortable at rest and only had discomfort when palpated. She is status-post cholecystectomy and recently went through major surgery in April 2022 for uterine cancer with total hysterectomy and radiation therapy. She had complications during the surgery of a nicked colon which required repair. She is slowly recovering from that surgery when she presents with this problem. I discussed the case with Dr. Helms and GI at [facility] who stated that with baseline cirrhosis the liver enzymes and total bilirubin being up may not be from obstruction of the common bile duct and though the imaging suggest this and MRCP would be best. If her enzymes markedly increased without MRCP in the morning before 830, GI may be taking her without the procedure for ERCP and relief of obstruction if a spot is available. Down and back procedures may happen during the day with no openings as of yet noticed for tomorrow and if she had to wait it would be first of next week before they should be able to do an outpatient or transfer down and back MRCP. Patient is medically stable otherwise with her recent surgeries healing well, no significant anemia and diabetes of recent onset with mild stearrhea with slight thrombocytopenia. She has had no bleeding. She is a full code. Review of Systems Narrative: 13 point review of systems otherwise unrevealing or stable. PFSH All Active Problems (Updated 07/28/22 @ 00:50 by Farhan Contreras) Type 2 diabetes mellitus (Chronic) Choledocholithiasis with obstruction (Acute) Conductive hearing loss in left ear (Acute) Acute serous otitis media, left ear (Acute) Total perforations of tympanic membrane, right ear (Acute) Nail dystrophy (Acute) Hyperlipidemia (Chronic) HTN (hypertension) (Chronic) Postmenopausal bleeding (Acute) Tubular adenoma of colon (Acute) history of colonic polyps Diverticulosis (Acute ~09/2020) Medical History Ankle edema Blood glucose elevated 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 states she has had this all her life Patent foramen ovale pt. states she has had this all her life Perforation of right tympanic membrane Prediabetes Right leg pain Rotator cuff syndrome Rupture of flexor tendon of thumb Sebaceous cyst Seborrheic dermatitis Seborrheic keratosis Skin lesion of face Skin neoplasm TMJ dysfunction Tubular adenoma of colon (08/20/17) Surgical History Arthroplasty of knee (12/17/15) RIGHT/DR. GORE-menisicus repaired Colonoscopy - MAC (08/20/17) History of cholecystectomy History of colonoscopy (~09/2020) History of knee replacement 09/30/20 Pt denies. only meniscus repairs Hx of dilation and curettage x3 S/P skin biopsy Social History Smoking/Tobacco Use Status: Never Smoking risk assessment performed?: Yes Alcohol Intake: never Drug use: Never Substance use type: does not use Current gender identity: female Do you feel safe at home: Yes Do you feel safe in your relationship?: Yes Female Reproductive History Menstrual Age of Menarche: 11 control method: none History History 1 Para 1 Hx # Term Pregnancies Multiple births Hx # Pregnancies Ectopic pregnancies AB induced Hx Number of Living Children AB spontaneous Past Pregnancies Del. Date GA/Weeks # Preg Succ Route Wgt Sex Labor Lgth Anesthesia Location Prov Complic 01/26/85 40 No Yes vaginal 1.166 g Male Delivery Date: 01/26/85 Last Updated by: Debi Murphy Pt reports had placenta adhered to uterine wall and went right to OR for D&C. Pt hospitalized from about 7 months until delivery for placental issues. Meds Allergies and Home Medications Allergies Allergy/AdvReac Type Severity Reaction Status Date / Time Sulfa (Sulfonamide Allergy Intermediate Skin Rash Unverified 07/27/22 18:55 Antibiotics) adhesive Allergy Skin Rash Unverified 07/27/22 18:55 codeine AdvReac Intermediate palpitation Unverified 07/27/22 18:55 s latex AdvReac localized Unverified 07/27/22 18:55 rash neoprene Allergy Intermediate Uncoded 07/27/22 18:55 Home Medications Medication Instructions Recorded Confirmed Type lisinopril 5 mg tablet 10 mg PO DAILY 03/16/14 07/27/22 History Fish Oil 340 mg-1,000 mg capsule 1 ea PO DAILY 08/13/17 07/27/22 History (omega-3 fatty acids-fish oil) simvastatin 10 mg tablet 10 mg PO HS 08/13/17 07/27/22 History calcium carbonate 600 mg calcium 600 mg PO DAILY 06/16/20 07/27/22 History (1,500 mg) tablet cholecalciferol (vitamin D3) 25 25 mcg PO DAILY 06/16/20 07/27/22 History mcg (1,000 unit) capsule famotidine 20 mg tablet 20 mg PO QHS 08/27/20 07/27/22 History ibuprofen 800 mg tablet 800 mg PO TID PRN 06/15/21 07/27/22 History pantoprazole 20 mg tablet,delayed 20 mg PO .QOD 04/24/22 07/27/22 History release metformin 750 mg tablet,extended 750 mg PO DAILY 04/25/22 07/27/22 History release 24 hr metoprolol tartrate 50 mg tablet 50 mg PO BID 04/25/22 07/27/22 History Exam Narrative Exam Narrative: General: Patient appears appropriate for age slightly older having gone through recent events, she appears fatigued and chronically ill, alert and oriented x3 and in moderate distress from her abdominal discomfort with slight tachypnea. HEENT: Normocephalic, eyes with pupils equal and reactive to light symmetrically with extraocular movement tact and sclera anicteric. Oropharynx with dry mucosa and fair dentition. Neck: Supple without JVD. Back: Stooped posture without CVA tenderness. Skin over the back is moist. Lungs: Fair aeration clear to auscultation percussion without focalizing rales or rhonchi. Heart: Regular rate and rhythm with no murmur gallop appreciated. Breast: Exam deferred. Abdomen: Soft and tender to palpation over the upper abdomen especially the right upper quadrant and slightly in the epigastric region with slight guarding but no rebound. Bowel sounds positive all quadrants present no palpable hepatosplenomegaly. Negative Alexandra sign. Genitalia/rectal: Exam deferred Extremities: Without clubbing, cyanosis or grossly pitting edema. Peripheral pulses intact. Skin: Pale, warm and dry except over the back where she is moisture lying on bed Psych: Flattened affect with depressed mood, no abnormal thought processes, remote and recent memory intact. Results Imaging Imaging Studies: CTA Chest With Contrast CTA Abdomen and Pelvis With Contrast Exam date and time: 07/27/2022 7:41 PM Age: 72 years old Clinical indication: Chest wall pain; Abdominal pain; Generalized; Prior surgery; Surgery date: 1-6 months; Surgery type: Hysterectomy; Additional info: Chest and abd pain TECHNIQUE: Imaging protocol: Computed tomographic angiography of the chest with contrast. Computed tomographic angiography of the abdomen and pelvis with contrast. 3D rendering (Not supervised by radiologist): MIP and/or 3D reconstructed images were created by the technologist. Radiation optimization: All CT scans at this facility use at least one of these dose optimization techniques: automated exposure control; mA and/or kV adjustment per patient size (includes targeted exams where dose is matched to clinical indication); or iterative reconstruction. Contrast material: OMNI 350; Contrast volume: 100 ml; Contrast route: INTRAVENOUS (IV);? COMPARISON: MR UPPER EXTREMITY RT WO 07/15/2021 2:34 PM FINDINGS: VASCULATURE: Pulmonary arteries: No evidence of pulmonary embolism. Aorta: Normal thoracic and abdominal aorta without aneurysm or dissection. The major vessels are patent. CHEST: Lungs: No airspace consolidation or ground-glass opacities. Pleural spaces: No pleural effusion or pneumothorax. Heart: Cardiomegaly. No pericardial effusion. ABDOMEN AND PELVIS: Liver: Cirrhotic liver morphology. Calcified focus in the right lobe. Gallbladder and bile ducts: Cholecystectomy. Dilatation of the CBD with questionable densities within the lumen. Pancreas: Unremarkable. No mass. No ductal dilation. Spleen: Unremarkable. No splenomegaly. Adrenal glands: Unremarkable. No mass. Kidneys and ureters: Unremarkable. No solid mass. No hydronephrosis. Stomach and bowel: No evidence of bowel obstruction. Colonic diverticulosis without diverticulitis. No mucosal thickening. Appendix: Normal appendix. Intraperitoneal space: Unremarkable. No free air. No significant fluid collection. Urinary bladder: Unremarkable. No mass. Reproductive: Hysterectomy. Lymph nodes: Unremarkable. No enlarged lymph nodes. Bones/joints: No acute fracture. Soft tissues: Unremarkable. IMPRESSION: 1. ? No evidence of aortic dissection. 2. ? Cirrhotic liver morphology. 3. ? Questionable densities in the CBD. Consider follow-up MRCP if there is concern for choledocholithiasis. Labs 07/27/22 18:56 07/27/22 18:56 Labs: Laboratory Results - last 24 hr 07/27/22 07/27/22 07/27/22 18:56 18:56 18:56 WBC 6.25 RBC 3.99 Hgb 12.1 Hct 37.6 MCV 94 MCH 30.3 MCHC 32.2 RDW 14.4 Plt Count 117 L MPV 11.8 H Immature Gran % 0.5 Neutrophils % 70.2 Lymphocytes % 21.0 Monocytes % 6.6 Eosinophils % 1.1 Basophils % 0.6 Nucleated RBC % 0.0 Absolute Neutrophils 4.39 Absolute Lymphocytes 1.31 Absolute Monocytes 0.41 Absolute Eosinophils 0.07 Absolute Basophils 0.04 ESR 44 H Sodium 139 Potassium 3.9 Chloride 105 Carbon Dioxide 24.0 Anion Gap 10.0 BUN 13 Creatinine 1.0 Est GFR (CKD-EPI 2020) 59.86 Glucose 183 H Calcium 9.1 Total Bilirubin 2.5 H AST 236 H ALT 250 H Alkaline Phosphatase 322 H Troponin I < 50 Total Protein 7.7 Albumin 3.2 L Lipase 53 COVID-19 Source SARS-CoV-2 (PCR) 07/27/22 07/27/22 21:15 21:15 WBC RBC Hgb Hct MCV MCH MCHC RDW Plt Count MPV Immature Gran % Neutrophils % Lymphocytes % Monocytes % Eosinophils % Basophils % Nucleated RBC % Absolute Neutrophils Absolute Lymphocytes Absolute Monocytes Absolute Eosinophils Absolute Basophils ESR Sodium Potassium Chloride Carbon Dioxide Anion Gap BUN Creatinine Est GFR (CKD-EPI 2020) Glucose Calcium Total Bilirubin AST ALT Alkaline Phosphatase Troponin I < 50 Total Protein Albumin Lipase COVID-19 Source Nasal/Nares SARS-CoV-2 (PCR) Negative Last Vital Signs Temp 36.4 C 07/27/22 18:47 Pulse 71 07/27/22 23:01 Resp 26 H 07/27/22 23:10 BP 146/62 H 07/27/22 23:01 Pulse Ox 97 07/27/22 23:10 Time Spent Time spent with Patient: >75 minutes Time was spent: preparing to see the patient(eg.review tests), obtaining and/or reviewing separately otained hiistory, ordering medications,tests, procedures, referring, communicating with other health home care provider, indepentently interpreting results, counseling the patient and care coordination (Coordinated with GI provider Dr. Mayer to call at 8 in the morning and reviewed labs with MRCP if available and discuss down and back transfer for ERCP. If no available spot tomorrow patient may have to wait until Sunday or the first of the week. If she is complicated ERCP will be done immediately)
[2022-07-28] VITALS (15 sets, daily range): BP systolic 143–177; BP diastolic 51–86; PULSE 54–77; RESP 14–22; TEMP 36.1–36.6; O2SAT 95–98
[2022-07-28] MEDS: Lactated Ringers 1,000 ML 125 ML IV ×3 (01:49→22:50)
[2022-07-28 06:50] LABS: HCT 31.6 % (36.0-46.0); HGB 10.4 g/dL (11.2-15.7); MCH 30.5 pg (27.0-33.0); MCHC 32.9 % (32.0-36.0); MCV 93 fL (80-95); MPV 12.2 fL (8.0-11.0); RBC 3.41 10^6/uL (3.93-5.22); RDW 14.6 % (11.7-14.6); RDW-SD 49.2 fL
[2022-07-28 07:00] LABS: Magnesium 1.3 mg/dL (1.8-2.4)
--- NOTE | 2022-07-28 07:00 | DI.MRI_ITS ---
Exam(s) MR ABDOMEN WO EXAM: MR ABDOMEN WO CLINICAL HISTORY: Elevated bilirubin/bile duct mass on CT/GB out TECHNIQUE: Multiplanar multisequence MRI of the Abdomen was performed. MRCP sequences also performed. COMPARISON: CT CT THORAX ABD/PEL CTA from 07/27/2022 FINDINGS: Exam is limited by motion. Liver: No focal liver lesions. Gallbladder: Unremarkable. Bile Ducts: Common bile duct dilated 12 millimeters. Two adjacent 4 millimeter low signal lesions se en in the dependent portion of inferior common bile duct, likely representing stones. Pancreas: Small small cyst in tail. No mass. No ductal dilatation. Adrenals: Unremarkable. Kidneys: Unremarkable. Spleen: Borderline enlargement. Small accessory spleen. Aorta: Unremarkable. Soft Tissues: Midline surgical scar. Bone: Degenerative changes in the spine. Lymph Nodes: Unremarkable. Mesentery: No ascites. No focal fluid collection. Bowel: No abnormal dilatation or wall thickening. Diverticulosis. IMPRESSION: Limited exam due to motion. Dilated common bile duct with 2 adjacent 4 millimeter filling defects di stally consistent with stones. No evidence of mass and pancreatic head. DATA REPOSITORY:
[2022-07-28 07:06] LABS: Platelet Count 92 10^3/uL (130-400)
[2022-07-28 07:09] LABS: ALT 252 U/L (14-59); AST 234 U/L (15-37); Albumin 2.8 g/dL (3.4-5.0); Alkaline Phosphatase 303 U/L (46-116); Bilirubin, Direct 1.8 mg/dL (0.0-0.2); Bilirubin, Total 2.4 mg/dL (0.2-1.0); C-Reactive Protein 1.23 mg/dL (0.0-0.3); Lipase 45 U/L (16-77); Total Protein 6.8 g/dL (6.4-8.2)
[2022-07-28 07:24] LABS: Calculated LDL 96 mg/dL (<100); Cholesterol 156 mg/dL (<200); GGT 982 U/L (5-55); HDL Cholesterol 41 mg/dL (40-60); Triglyceride 97 mg/dL (<150)
[2022-07-28 07:40] LABS: INR 1.1 (0.9-1.1); Prothrombin Time 11.1 sec (9.3-11.0)
[2022-07-28 07:46] LABS: Procalcitonin 0.2 ng/mL
[2022-07-28] MEDS: Metoprolol 50 MG TAB PO ×2 (08:10→20:45)
[2022-07-28] MEDS: Lisinopril 5 MG TAB 10 MG PO (08:10)
[2022-07-28] MEDS: Pantoprazole 20 MG TABCR PO (08:10)
--- NOTE | 2022-07-28 10:08 | W.SURGCON ---
Date of service: 07/28/22 Time of Service: 10:08 Assessment and Plan Assessment and plan (1) Choledocholithiasis with obstruction: Status: Acute Assessment and plan: -MRCP today. supportive care abx to prevent cholangitis surgery will follow peripherally (2) Type 2 diabetes mellitus: Status: Chronic (3) HTN (hypertension): Status: Chronic (4) Tubular adenoma of colon: Status: Acute (5) Diverticulosis: Status: Acute (6) Endometrial carcinoma: Status: Resolved (7) Decreased renal function: (8) GERD (gastroesophageal reflux disease): (9) Cirrhosis: Status: Acute History of Present Illness Narrative: Patient actually presented to the ER complaining of chest pain. She has had a remote cholecystectomy with Dr. Pacheco. She recently had a Radical hysterectomy for endometrial carcinoma 05/[address] [facility]. She is currently undergoing XRT. Today she is still c/o pain and nausea. She is unable to eat. Results of CT as noted reviewed as well as labs. ABDOMEN AND PELVIS: Liver: Cirrhotic liver morphology. Calcified focus in the right lobe. Gallbladder and bile ducts: Cholecystectomy. Dilatation of the CBD with questionable densities within the lumen. Pancreas: Unremarkable. No mass. No ductal dilation. Spleen: Unremarkable. No splenomegaly. Adrenal glands: Unremarkable. No mass. Kidneys and ureters: Unremarkable. No solid mass. No hydronephrosis. Stomach and bowel: No evidence of bowel obstruction. Colonic diverticulosis without diverticulitis. No mucosal thickening. Appendix: Normal appendix. Intraperitoneal space: Unremarkable. No free air. No significant fluid collection. Urinary bladder: Unremarkable. No mass. Reproductive: Hysterectomy. Lymph nodes: Unremarkable. No enlarged lymph nodes. Bones/joints: No acute fracture. Soft tissues: Unremarkable. IMPRESSION: 1. ? No evidence of aortic dissection. 2. ? Cirrhotic liver morphology. 3. ? Questionable densities in the CBD. Consider follow-up MRCP if there is concern for choledocholithiasis. Review of Systems All systems reviewed & are unremarkable except as noted in HPI and below PFSH All Active Problems (Updated 07/28/22 @ 21:17 by Jaci Molina DO) Cirrhosis (Acute) Type 2 diabetes mellitus (Chronic) Choledocholithiasis with obstruction (Acute) Conductive hearing loss in left ear (Acute) Acute serous otitis media, left ear (Acute) Total perforations of tympanic membrane, right ear (Acute) Nail dystrophy (Acute) Hyperlipidemia (Chronic) HTN (hypertension) (Chronic) Postmenopausal bleeding (Acute) Tubular adenoma of colon (Acute) history of colonic polyps Diverticulosis (Acute ~09/2020) Medical History Ankle edema Blood glucose elevated 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 states she has had this all her life Patent foramen ovale pt. states she has had this all her life Perforation of right tympanic membrane Prediabetes Right leg pain Rotator cuff syndrome Rupture of flexor tendon of thumb Sebaceous cyst Seborrheic dermatitis Seborrheic keratosis Skin lesion of face Skin neoplasm TMJ dysfunction Tubular adenoma of colon (08/20/17) Surgical History Arthroplasty of knee (12/17/15) RIGHT/DR. GORE-menisicus repaired Colonoscopy - MAC (08/20/17) History of cholecystectomy History of colonoscopy (~09/2020) History of knee replacement 09/30/20 Pt denies. only meniscus repairs Hx of dilation and curettage x3 S/P skin biopsy Social History Smoking/Tobacco Use Status: Never Smoking risk assessment performed?: Yes Alcohol Intake: never Drug use: Never Substance use type: does not use Current gender identity: female Do you feel safe at home: Yes Do you feel safe in your relationship?: Yes Female Reproductive History Menstrual Age of Menarche: 11 control method: none History History 1 Para 1 Hx # Term Pregnancies Multiple births Hx # Pregnancies Ectopic pregnancies AB induced Hx Number of Living Children AB spontaneous Past Pregnancies Del. Date GA/Weeks # Preg Succ Route Wgt Sex Labor Lgth Anesthesia Location Prov Complic 01/26/85 40 No Yes vaginal 2041.166 g Male Delivery Date: 01/26/85 Last Updated by: Debi Ramseur Pt reports had placenta adhered to uterine wall and went right to OR for D&C. Pt hospitalized from about 7 months until delivery for placental issues. Exam Const General: cooperative and no acute distress Nutritional Appearance: overweight Resp Effort & Inspection: normal respiratory effort and able to speak in complete sentences Auscultation: clear to auscultation bilaterally Cardio Rate: regular rate Rhythm: regular rhythm GI Palpation: soft Other: mild ruq pain. no diffuse peritonitis Results Last Vital Signs Temp 36.1 C L 07/28/22 06:43 Pulse 68 07/28/22 08:09 Resp 16 07/28/22 06:43 BP 150/82 H 07/28/22 08:09 Pulse Ox 97 07/28/22 06:43 Labs 07/28/22 06:20 07/27/22 18:56 Labs: Laboratory Results - last 24 hr 07/27/22 07/27/22 07/27/22 18:56 18:56 18:56 WBC 6.25 RBC 3.99 Hgb 12.1 Hct 37.6 MCV 94 MCH 30.3 MCHC 32.2 RDW 14.4 Plt Count 117 L MPV 11.8 H Immature Gran % 0.5 Neutrophils % 70.2 Lymphocytes % 21.0 Monocytes % 6.6 Eosinophils % 1.1 Basophils % 0.6 Nucleated RBC % 0.0 Absolute Neutrophils 4.39 Absolute Lymphocytes 1.31 Absolute Monocytes 0.41 Absolute Eosinophils 0.07 Absolute Basophils 0.04 ESR 44 H PT INR Sodium 139 Potassium 3.9 Chloride 105 Carbon Dioxide 24.0 Anion Gap 10.0 BUN 13 Creatinine 1.0 Est GFR (CKD-EPI 2020) 59.86 Glucose 183 H Calcium 9.1 Magnesium Total Bilirubin 2.5 H Conjugated Bilirubin GGT AST 236 H ALT 250 H Alkaline Phosphatase 322 H Troponin I < 50 C-Reactive Protein Total Protein 7.7 Albumin 3.2 L Triglycerides Total Cholesterol LDL Cholesterol, Calc HDL Cholesterol Lipase 53 Procalcitonin COVID-19 Source SARS-CoV-2 (PCR) 07/27/22 07/27/22 07/27/22 21:15 21:15 23:52 WBC RBC Hgb Hct MCV MCH MCHC RDW Plt Count MPV Immature Gran % Neutrophils % Lymphocytes % Monocytes % Eosinophils % Basophils % Nucleated RBC % Absolute Neutrophils Absolute Lymphocytes Absolute Monocytes Absolute Eosinophils Absolute Basophils ESR PT Cancelled INR Cancelled Sodium Potassium Chloride Carbon Dioxide Anion Gap BUN Creatinine Est GFR (CKD-EPI 2020) Glucose Calcium Magnesium Total Bilirubin Conjugated Bilirubin GGT AST ALT Alkaline Phosphatase Troponin I < 50 C-Reactive Protein Total Protein Albumin Triglycerides Total Cholesterol LDL Cholesterol, Calc HDL Cholesterol Lipase Procalcitonin COVID-19 Source Nasal/Nares SARS-CoV-2 (PCR) Negative 07/27/22 07/28/22 07/28/22 23:58 06:20 06:20 WBC RBC Hgb Hct MCV MCH MCHC RDW Plt Count MPV Immature Gran % Neutrophils % Lymphocytes % Monocytes % Eosinophils % Basophils % Nucleated RBC % Absolute Neutrophils Absolute Lymphocytes Absolute Monocytes Absolute Eosinophils Absolute Basophils ESR PT INR Sodium Potassium Chloride Carbon Dioxide Anion Gap BUN Creatinine Est GFR (CKD-EPI 2020) Glucose Calcium Magnesium Total Bilirubin 2.4 H Conjugated Bilirubin Cancelled 1.8 H GGT 982 H AST 234 H ALT 252 H Alkaline Phosphatase 303 H Troponin I C-Reactive Protein 1.23 H Total Protein 6.8 Albumin 2.8 L Triglycerides 97 Total Cholesterol 156 LDL Cholesterol, Calc 96 HDL Cholesterol 41 Lipase 45 Procalcitonin 0.2 COVID-19 Source SARS-CoV-2 (PCR) 07/28/22 07/28/22 07/28/22 06:20 06:20 06:20 WBC 4.60 RBC 3.41 L Hgb 10.4 L Hct 31.6 L MCV 93 MCH 30.5 MCHC 32.9 RDW 14.6 Plt Count 92 L MPV 12.2 H Immature Gran % Neutrophils % Lymphocytes % Monocytes % Eosinophils % Basophils % Nucleated RBC % Absolute Neutrophils Absolute Lymphocytes Absolute Monocytes Absolute Eosinophils Absolute Basophils ESR PT 11.1 H INR 1.1 Sodium Potassium Chloride Carbon Dioxide Anion Gap BUN Creatinine Est GFR (CKD-EPI 2020) Glucose Calcium Magnesium 1.3 L Total Bilirubin Conjugated Bilirubin GGT AST ALT Alkaline Phosphatase Troponin I C-Reactive Protein Total Protein Albumin Triglycerides Total Cholesterol LDL Cholesterol, Calc HDL Cholesterol Lipase Procalcitonin COVID-19 Source SARS-CoV-2 (PCR)
[2022-07-28] MEDS: LORazepam 0.5 MG TAB PO (11:52)
[2022-07-28] MEDS: Heparin 5,000 UNITS/ML VIAL 5000 UNITS SC ×2 (15:01→21:32)
--- NOTE | 2022-07-28 15:33 | W.PM.PROGNOT ---
Date of Service Date of service: 07/28/22 Time of Service: 15:34 Assessment and Plan Assessment and plan (1) Choledocholithiasis with obstruction: Start date: 07/27/22 Status: Acute Assessment and plan: This is a 70-year-old lady who is status postcholecystectomy who had recent major surgery with hysterectomy for uterine cancer and radiation therapy afterwards with complications of a mixed colon requiring repair. This is slowly resolved but now she has presenting 3 days of intermittent chest pain going straight to her back with associated upper abdominal discomfort. She did respond to nitroglycerin sublingually but troponins were negative and there is no evidence of cardiac ischemia or event. Labs was consistent with choledochal lithiasis by imaging with obstruction and acute elevation of patient's borderline elevated liver functions in the past. Her ALT and AST usually in the 60 range and now over the 250 range meaning 4 times elevated. Total bilirubin up above 2 PT/INR pending. Sed rate and CRP were slightly up. WBC was not elevated and she had no fever indicating less likely that she has infection with cholangitis. Cont to catch closely for this complication. Started clear liquids. Surgery has been consulted Both [facility] and [facility] have no availability for an endoscopic US and/or ERCP today. Recommended proceeding with the MRCP which was performed and showed dilated common bile duct with 2 adjacent 4 millimeter filling defects distally consistent with stones.? No evidence of mass and pancreatic head. If develops signs/sxs of worsening condition or cholangitis can call tertiary center for further recommendations or possible transfer. Otherwise, if remains stable, recommendation is to call on Sunday morning to discuss plans such as a down and back for endoscopic US/ERCP. (2) Type 2 diabetes mellitus: Status: Chronic Assessment and plan: Before meals and at bedtime coverage with sliding scale glucometer measurements and short acting insulin. (3) HTN (hypertension): Status: Chronic Assessment and plan: Continue outpatient medications adjusting as needed during the hospital stay. (4) Hyperlipidemia: Status: Chronic Assessment and plan: Continue outpatient statin Total chol. 156. (5) Endometrial carcinoma: Status: Resolved Assessment and plan: With surgery in April 2022 and slow recovery. She had complete removal with radiation therapy afterwards and has no evidence of disease per patient. This was diagnosed as patient had postmenopausal bleeding. Subjective Subjective Patient reports: no new complaints and nausea; denies diarrhea, vomiting or shortness of breath Exam Narrative Exam Narrative: General: Fatigued, pale appearing. Pleasant and conversant. HEENT: Sclera clear. EOMI. Lungs: Clear. Nonlabored breathing. Heart: Regular rate and rhythm with no murmur Abdomen: Soft and tender to palpation over the upper abdomen especially the right upper quadrant and slightly in the epigastric region. No guarding. Extremities: No edema, calf tenderness, cyanosis. Psych: Flattened affect with depressed mood, no abnormal thought processes, remote and recent memory intact. Objective Last Vital Signs Temp 36.4 C L 07/28/22 15:32 Pulse 59 L 07/28/22 15:32 Resp 16 07/28/22 15:32 BP 157/86 H 07/28/22 15:32 Pulse Ox 98 07/28/22 15:32 Laboratory Results - last 24 hr 07/27/22 07/27/22 07/27/22 18:56 18:56 18:56 WBC 6.25 RBC 3.99 Hgb 12.1 Hct 37.6 MCV 94 MCH 30.3 MCHC 32.2 RDW 14.4 Plt Count 117 L MPV 11.8 H Immature Gran % 0.5 Neutrophils % 70.2 Lymphocytes % 21.0 Monocytes % 6.6 Eosinophils % 1.1 Basophils % 0.6 Nucleated RBC % 0.0 Absolute Neutrophils 4.39 Absolute Lymphocytes 1.31 Absolute Monocytes 0.41 Absolute Eosinophils 0.07 Absolute Basophils 0.04 ESR 44 H PT INR Sodium 139 Potassium 3.9 Chloride 105 Carbon Dioxide 24.0 Anion Gap 10.0 BUN 13 Creatinine 1.0 Est GFR (CKD-EPI 2020) 59.86 Glucose 183 H Calcium 9.1 Magnesium Total Bilirubin 2.5 H Conjugated Bilirubin GGT AST 236 H ALT 250 H Alkaline Phosphatase 322 H Troponin I < 50 C-Reactive Protein Total Protein 7.7 Albumin 3.2 L Triglycerides Total Cholesterol LDL Cholesterol, Calc HDL Cholesterol Lipase 53 Procalcitonin COVID-19 Source SARS-CoV-2 (PCR) 07/27/22 07/27/22 07/27/22 21:15 21:15 23:52 WBC RBC Hgb Hct MCV MCH MCHC RDW Plt Count MPV Immature Gran % Neutrophils % Lymphocytes % Monocytes % Eosinophils % Basophils % Nucleated RBC % Absolute Neutrophils Absolute Lymphocytes Absolute Monocytes Absolute Eosinophils Absolute Basophils ESR PT Cancelled INR Cancelled Sodium Potassium Chloride Carbon Dioxide Anion Gap BUN Creatinine Est GFR (CKD-EPI 2020) Glucose Calcium Magnesium Total Bilirubin Conjugated Bilirubin GGT AST ALT Alkaline Phosphatase Troponin I < 50 C-Reactive Protein Total Protein Albumin Triglycerides Total Cholesterol LDL Cholesterol, Calc HDL Cholesterol Lipase Procalcitonin COVID-19 Source Nasal/Nares SARS-CoV-2 (PCR) Negative 07/27/22 07/28/22 07/28/22 23:58 06:20 06:20 WBC RBC Hgb Hct MCV MCH MCHC RDW Plt Count MPV Immature Gran % Neutrophils % Lymphocytes % Monocytes % Eosinophils % Basophils % Nucleated RBC % Absolute Neutrophils Absolute Lymphocytes Absolute Monocytes Absolute Eosinophils Absolute Basophils ESR PT INR Sodium Potassium Chloride Carbon Dioxide Anion Gap BUN Creatinine Est GFR (CKD-EPI 2020) Glucose Calcium Magnesium Total Bilirubin 2.4 H Conjugated Bilirubin Cancelled 1.8 H GGT 982 H AST 234 H ALT 252 H Alkaline Phosphatase 303 H Troponin I C-Reactive Protein 1.23 H Total Protein 6.8 Albumin 2.8 L Triglycerides 97 Total Cholesterol 156 LDL Cholesterol, Calc 96 HDL Cholesterol 41 Lipase 45 Procalcitonin 0.2 COVID-19 Source SARS-CoV-2 (PCR) 07/28/22 07/28/22 07/28/22 06:20 06:20 06:20 WBC 4.60 RBC 3.41 L Hgb 10.4 L Hct 31.6 L MCV 93 MCH 30.5 MCHC 32.9 RDW 14.6 Plt Count 92 L MPV 12.2 H Immature Gran % Neutrophils % Lymphocytes % Monocytes % Eosinophils % Basophils % Nucleated RBC % Absolute Neutrophils Absolute Lymphocytes Absolute Monocytes Absolute Eosinophils Absolute Basophils ESR PT 11.1 H INR 1.1 Sodium Potassium Chloride Carbon Dioxide Anion Gap BUN Creatinine Est GFR (CKD-EPI 2020) Glucose Calcium Magnesium 1.3 L Total Bilirubin Conjugated Bilirubin GGT AST ALT Alkaline Phosphatase Troponin I C-Reactive Protein Total Protein Albumin Triglycerides Total Cholesterol LDL Cholesterol, Calc HDL Cholesterol Lipase Procalcitonin COVID-19 Source SARS-CoV-2 (PCR) PAWSS Have you Been Recently Intoxicated or Drunk Within the Last 30 days?: No Have you Ever Experienced Previous Episodes of Alcohol Withdrawal?: No Have you ever Experienced Withdrawal Seizures?: No Have you ever Experienced Delirium Tremens(DT)s?: No Have you ever undergone Alcohol Rehabilitation Treatment (i.e, inpt ot outpatient treatment programs)?: No Have you ever Experienced Blackouts?: No Have you ever Combined Alcohol with other Downers within the last 90 days?: No Have you ever Combined Alcohol with any other Substance of Abuse during the last 90 days?: No Positive Blood Alcohol level on Presentation? [PCS.BAL]: No Evidence of Increased Autonomic Activity (i.e. HR>120, tremor, sweating, agitation, nausea)?: No Result: 0 Time Spent with Patient Time Spent with Patient: 35-49 minutes Time was spent: preparing to see the patient(eg.review tests), obtaining and/or reviewing separately otained hiistory, ordering medications,tests, procedures, referring, communicating with other health child care associate, indepentently interpreting results and counseling the patient
[2022-07-28] MEDS: Prochlorperazine 10 MG/2 ML VIAL 5 MG IVP (15:39)
[2022-07-28] MEDS: MAGNESIUM SULFATE 4 GM/100 ML BAG IVPB (15:53)
[2022-07-28] MEDS: PIPERACILLIN/TAZO 3.375 GM in Normal Saline 50 ML IVPB ×2 (17:27→21:28)
--- NOTE | 2022-07-28 17:52 | INITIAL_ITS ---
- If Service Date Differs Date of service: 07/28/22 Time of Service: 17:52 Care Management Initial Assess REASON FOR HOSPITALIZATION:: Choledocholithiasis with obstruction, NIDDM PAST MEDICAL HISTORY/PAST SURGICAL HISTORY:: All Active Problems. Type 2 diabe dionna mellitus (Chronic). Choledocholithiasis with obstruction (Acute). Conductive hearing loss in left ear (Acute). Acute serous otitis media, left ear (Acute). Total perforations of tympanic membrane, right ear (Acute). Nail dystrophy (Acute). Hyperlipidemia (Chronic). HTN (hypertension) (Chronic). Postmenopausal bleeding (Acute). Tubular adenoma of colon (Acute). history of colonic polyps. Diverticulosis (Acute ~09/2020). Medical History. Ankle edema. Blood glucose elevated. 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 Chronic serous otitis media of right ear. Chronic serous otitis media of right ear (08/27/17). Contact dermatitis. Decreased renal function. Diverticulosis. DJD (degenerative joint disease). Elevated LFTs. GERD (gastroesophageal reflux disease). Hearing loss. History of postoperative nausea and vomiting. Multiple nevi. Nevus. Obesity. Osteopenia. Patent ductus arteriosus. pt. states she has had this all her life. Patent foramen ovale. pt. states she has had this all her life. Perforation of right tympanic membrane. Prediabetes. Right leg pain. Rotator cuff syndrome. Rupture of flexor tendon of thumb. Sebaceous cyst. Seborrheic dermatitis. Seborrheic keratosis. Skin lesion of face. Skin neoplasm. TMJ dysfunction. Tubular adenoma of colon (08/20/17). Surgical History. Arthroplasty of knee (12/17/15). RIGHT/DR. GORE- menisicus repaired. [place] [facility] [place] ([place]/17). History of cholecystectomy. History of colonoscopy (~09/2020). History of knee replacement. 09/30/20 Pt denies. only meniscus repairs. Hx of dilation and curettage. x3. S/P skin biopsy PREVIOUS FUNCTIONAL STATUS/SOCIAL/FAMILY SUPPORTS:: Oly lives in [facility] with her adult son, Lance, who has Asperger's and she is the primary caregiver for. She has supports that help with him when she is not available. She is independent at baseline. CURRENT FUNCTIONAL STATUS:: Oly was sitting up in a chair when CM met with her. She stated that she is feeling ok today. She reported that per MD, she will likely go to [facility] once they have a bed available for an ERCP. CM stated that this is generally a down and back procedure. She expressed concern about being away from her son for a prolonged amount of time, but also stated that she has supportive friends and family who will care for him in her absence. Per provider, this procedure is medically necessary. CM will continue to follow. ADVANCE DIRECTIVES:: On file, Katherine Patel listed as agent. Has patient been provided with info about the portal/API?: Yes Did the patient sign up for the portal?: No CODE STATUS:: Full Code INSURANCE COVERAGE / FINANCIAL ISSUES:: [facility] CURRENT HOME/COMMUNITY SERVICES/EQUIPMENT:: None. PRIMARY CARE PHYSICIAN:: Edna Gil POTENTIAL DISCHARGE NEEDS:: Follow up appointments. PATIENT/FAMILY EDUCATION NEEDS:: Review discharge instructions and limitations, discussion of self care needs including ask me three. ANTICIPATED BARRIERS TO DISCHARGE:: None. TRANSPORTATION:: Via private vehicle by friends. PLAN:: Oly is likely going to go to [facility] for a down and back procedure for an ERCP once a bed becomes available, possibly Sunday. She will remain at [facility] being closely monitored until this procedure. She will follow up with her PCP and discharge plan of care once she is medically cleared to return home. CM will continue to follow.
[2022-07-28] MEDS: Docusate Sodium 100 MG CAP PO (20:45)
[2022-07-28] MEDS: Nystatin POWDER 60 GM JAR TP (20:45)
[2022-07-28] MEDS: Magnesium Oxide 400 MG TAB PO (21:27)
[2022-07-28] MEDS: Simvastatin 10 MG TAB PO (21:27)
[2022-07-29] VITALS (9 sets, daily range): BP systolic 134–176; BP diastolic 56–83; PULSE 58–69; RESP 14–20; TEMP 36.3–37.2; O2SAT 97–99
[2022-07-29] MEDS: Lactated Ringers 1,000 ML 125 ML IV (00:53)
[2022-07-29] MEDS: PIPERACILLIN/TAZO 3.375 GM in Normal Saline 50 ML IVPB ×4 (04:21→21:23)
[2022-07-29 06:43] LABS: Abs Immature Grans 0.02 10^3/uL (0.0-0.06); Absolute Basophil Count 0.03 10^3/uL (0.0-0.2); Absolute Eosinophil Count 0.08 10^3/uL (0.0-0.7); Absolute Lymphocyte Count 0.97 10^3/uL (1.2-3.4); Absolute Monocyte Count 0.28 10^3/uL (0.1-0.8); Absolute Neutrophil Count 2.42 10^3/uL (1.2-6.7); Basophils % 0.8; Eosinophils % 2.1; HCT 32.6 % (36.0-46.0); HGB 10.6 g/dL (11.2-15.7); Immature Grans % 0.5; Lymphocytes % 25.5; MCH 30.5 pg (27.0-33.0); MCHC 32.5 % (32.0-36.0); MCV 94 fL (80-95); MPV 11.7 fL (8.0-11.0); Monocytes % 7.4; Neutrophils % 63.7; RBC 3.47 10^6/uL (3.93-5.22); RDW 14.7 % (11.7-14.6); RDW-SD 51.1 fL
[2022-07-29 06:57] LABS: Platelet Count 96 10^3/uL (130-400)
[2022-07-29 07:11] LABS: Anion Gap 6.4 mmol/L (3-11); BUN 9 mg/dL (7-18); CO2 29.6 mmol/L (21.0-32.0); Calcium 8.6 mg/dL (8.5-10.1); Chloride 106 mmol/L (98-107); Estimated GFR 59.86 (mL/min/1.73m2); Glucose 126 mg/dL (74-106); Magnesium 2.3 mg/dL (1.8-2.4); Potassium 3.9 mmol/L (3.5-5.1); Sodium 142 mmol/L (136-145)
[2022-07-29] MEDS: Nystatin POWDER 60 GM JAR TP ×2 (08:15→19:51)
[2022-07-29] MEDS: Lisinopril 5 MG TAB 10 MG PO (08:15)
[2022-07-29] MEDS: Pantoprazole 20 MG TABCR PO (08:15)
[2022-07-29] MEDS: Metoprolol 50 MG TAB PO ×2 (08:15→19:51)
[2022-07-29 09:48] LABS: ALT 186 U/L (14-59); AST 114 U/L (15-37); Albumin 2.8 g/dL (3.4-5.0); Alkaline Phosphatase 280 U/L (46-116); Anion Gap 7.3 mmol/L (3-11); BUN 8 mg/dL (7-18); Bilirubin, Total 1.6 mg/dL (0.2-1.0); CO2 27.7 mmol/L (21.0-32.0); CREATININE 1.2 mg/dL (0.55-1.02); Calcium 8.6 mg/dL (8.5-10.1); Chloride 106 mmol/L (98-107); Estimated GFR 48.09 (mL/min/1.73m2); Glucose 206 mg/dL (74-106); Potassium 3.8 mmol/L (3.5-5.1); Sodium 141 mmol/L (136-145); Total Protein 6.7 g/dL (6.4-8.2)
[2022-07-29] MEDS: Heparin 5,000 UNITS/ML VIAL 5000 UNITS SC ×2 (13:23→21:21)
--- NOTE | 2022-07-29 14:13 | PGE_ITS ---
Date of Service Date of service: 07/29/22 Time of Service: 14:13 Assessment and Plan Assessment and plan (1) Choledocholithiasis with obstruction: Start date: 07/27/22 Status: Acute Assessment and plan: This is a 70-year-old lady who is status postcholecystectomy who had recent major surgery with hysterectomy for uterine cancer and radiation therapy afterwards with complications of a mixed colon requiring repair. This is slowly resolved but now she has presenting 3 days of intermittent chest pain going straight to her back with associated upper abdominal discomfort. She did respond to nitroglycerin sublingually but troponins were negative and there is no evidence of cardiac ischemia or event. Labs was consistent with choledochal lithiasis by imaging with obstruction and acute elevation of patient's borderline elevated liver functions in the past. Her ALT and AST usually in the 60 range and now over the 250 range meaning 4 times elevated. Total bilirubin up above 2 PT/INR pending. Sed rate and CRP were slightly up. WBC was not elevated and she had no fever indicating less likely that she has infection with cholangitis. Remains afebrile with no WBC elevation Bilirubin and LFTs are improved. Overall with less abd pain and feeling better. Surgery following. Both [facility] and [facility] have no availability for an endoscopic US and/or ERCP today. Recommended proceeding with the MRCP which was performed and showed dilated common bile duct with 2 adjacent 4 millimeter filling defects distally consistent with stones.? No evidence of mass and pancreatic head. If develops signs/sxs of worsening condition or cholangitis can call tertiary center for further recommendations or possible transfer. Otherwise, if remains stable, recommendation is to call on Sunday morning to discuss plans such as a down and back for endoscopic US/ERCP. (2) Type 2 diabetes mellitus: Status: Chronic Assessment and plan: Before meals and at bedtime coverage with sliding scale glucometer measurements and short acting insulin. Controlled. (3) HTN (hypertension): Status: Chronic Assessment and plan: Continue outpatient medications adjusting as needed during the hospital stay. SBP in the 140's to 150's so far today. (4) Hyperlipidemia: Status: Chronic Assessment and plan: Continue outpatient statin Total chol. 156. (5) Endometrial carcinoma: Status: Resolved Assessment and plan: With surgery in April 2022 and slow recovery. She had complete removal with radiation therapy afterwards and has no evidence of disease per patient. This was diagnosed as patient had postmenopausal bleeding. (6) Discharge planning issues: Status: Acute Assessment and plan: Full Code Subjective Subjective Patient reports: no new complaints, feels better, tolerating liquids well and afebrile; denies vomiting or shortness of breath Interval history since last seen: Less abd pain. Minimal appetite but is in favor of advancing to full liquids. Exam Narrative Exam Narrative: General: Less fatigued appearing today. Pale. Sitting in chair. Pleasant and conversant. HEENT: Sclera clear. EOMI. Lungs: Clear. Nonlabored breathing. Heart: Regular rate and rhythm with no murmur Abdomen: Soft and tender to palpation over the upper abdomen especially the right upper quadrant and slightly in the epigastric region. No guarding. Extremities: No edema, calf tenderness, cyanosis. Psych: Affect appropriate. no abnormal thought processes, remote and recent memory intact. Objective Last Vital Signs Temp 36.3 C L 07/29/22 09:00 Pulse 58 L 07/29/22 09:00 Resp 16 07/29/22 09:00 BP 157/77 H 07/29/22 09:00 Pulse Ox 98 07/29/22 09:00 Laboratory Results - last 24 hr 07/29/22 07/29/22 07/29/22 06:23 06:23 09:08 WBC 3.80 L RBC 3.47 L Hgb 10.6 L Hct 32.6 L MCV 94 MCH 30.5 MCHC 32.5 RDW 14.7 H Plt Count 96 L MPV 11.7 H Immature Gran % 0.5 Neutrophils % 63.7 Lymphocytes % 25.5 Monocytes % 7.4 Eosinophils % 2.1 Basophils % 0.8 Nucleated RBC % 0.0 Absolute Neutrophils 2.42 Absolute Lymphocytes 0.97 L Absolute Monocytes 0.28 Absolute Eosinophils 0.08 Absolute Basophils 0.03 Sodium 142 141 Potassium 3.9 3.8 Chloride 106 106 Carbon Dioxide 29.6 27.7 Anion Gap 6.4 7.3 BUN 9 8 Creatinine 1.0 1.2 H Est GFR (CKD-EPI 2020) 59.86 48.09 Glucose 126 H 206 H Calcium 8.6 8.6 Magnesium 2.3 Total Bilirubin 1.6 H AST 114 H ALT 186 H Alkaline Phosphatase 280 H Total Protein 6.7 Albumin 2.8 L PAWSS Have you Been Recently Intoxicated or Drunk Within the Last 30 days?: No Have you Ever Experienced Previous Episodes of Alcohol Withdrawal?: No Have you ever Experienced Withdrawal Seizures?: No Have you ever Experienced Delirium Tremens(DT)s?: No Have you ever undergone Alcohol Rehabilitation Treatment (i.e, inpt ot outpatient treatment programs)?: No Have you ever Experienced Blackouts?: No Have you ever Combined Alcohol with other Downers within the last 90 days?: No Have you ever Combined Alcohol with any other Substance of Abuse during the last 90 days?: No Positive Blood Alcohol level on Presentation? [PCS.BAL]: No Evidence of Increased Autonomic Activity (i.e. HR>120, tremor, sweating, agitation, nausea)?: No Result: 0 Time Spent with Patient Time Spent with Patient: 25-34 minutes Time was spent: preparing to see the patient(eg.review tests), ordering medications,tests, procedures, referring, communicating with other health career and transition teacher, indepentently interpreting results and counseling the patient
[2022-07-29] MEDS: Docusate Sodium 100 MG CAP PO (19:51)
[2022-07-29] MEDS: Simvastatin 10 MG TAB PO (21:21)
[2022-07-29] MEDS: Magnesium Oxide 400 MG TAB PO (21:21)
[2022-07-29] MEDS: Insulin Aspart 300 UNITS/3 ML PEN SC (21:24)
[2022-07-30] VITALS (9 sets, daily range): BP systolic 142–191; BP diastolic 59–85; PULSE 59–87; RESP 14–16; TEMP 36–36.8; O2SAT 97–99
[2022-07-30] MEDS: PIPERACILLIN/TAZO 3.375 GM in Normal Saline 50 ML IVPB ×4 (03:13→21:07)
[2022-07-30 06:30] LABS: Abs Immature Grans 0.02 10^3/uL (0.0-0.06); Absolute Basophil Count 0.04 10^3/uL (0.0-0.2); Absolute Eosinophil Count 0.13 10^3/uL (0.0-0.7); Absolute Lymphocyte Count 1.13 10^3/uL (1.2-3.4); Absolute Neutrophil Count 2.36 10^3/uL (1.2-6.7); Eosinophils % 3.3; HCT 31.5 % (36.0-46.0); HGB 10.3 g/dL (11.2-15.7); Immature Grans % 0.5; Lymphocytes % 28.4; MCH 30.7 pg (27.0-33.0); MCHC 32.7 % (32.0-36.0); MCV 94 fL (80-95); MPV 11.7 fL (8.0-11.0); Monocytes % 7.5; Neutrophils % 59.3; RBC 3.36 10^6/uL (3.93-5.22); RDW 14.6 % (11.7-14.6); RDW-SD 50.4 fL; WBC 3.98 10^3/uL (4.4-10.8)
[2022-07-30 06:33] LABS: Platelet Count 92 10^3/uL (130-400)
[2022-07-30 07:14] LABS: Magnesium 1.9 mg/dL (1.8-2.4)
[2022-07-30 07:17] LABS: ALT 151 U/L (14-59); AST 85 U/L (15-37); Albumin 2.7 g/dL (3.4-5.0); Alkaline Phosphatase 261 U/L (46-116); Anion Gap 10.2 mmol/L (3-11); BUN 7 mg/dL (7-18); Bilirubin, Total 1.6 mg/dL (0.2-1.0); CO2 26.8 mmol/L (21.0-32.0); CREATININE 1.1 mg/dL (0.55-1.02); Chloride 109 mmol/L (98-107); Estimated GFR 53.39 (mL/min/1.73m2); Glucose 124 mg/dL (74-106); Sodium 146 mmol/L (136-145); Total Protein 6.5 g/dL (6.4-8.2)
[2022-07-30] MEDS: Pantoprazole 20 MG TABCR PO (08:12)
[2022-07-30] MEDS: Nystatin POWDER 60 GM JAR TP ×2 (08:12→20:35)
[2022-07-30] MEDS: Metoprolol 50 MG TAB PO ×2 (08:12→20:27)
[2022-07-30] MEDS: Lisinopril 5 MG TAB 10 MG PO (08:12)
--- NOTE | 2022-07-30 10:23 | W.PM.PROGNOT ---
Date of Service Date of service: 07/30/22 Time of Service: Assessment and Plan Assessment and plan (1) Choledocholithiasis with obstruction: Start date: 07/27/22 Status: Acute Assessment and plan: Presentation and labs and MRCP all consistent w/ choledocholithasis w/ CBD obstruction however, she is improving clinically and her LFT are improving. Total bili down 2.5>2.4> 1.6> 1.6, AST 236>234>114>85; ALT 250>252>186>151; alkaline phosphatase 322>303>280>261 WBC low 3980, CRP was elevated, not repeated today; procalcitonin was mildly elevated at 0.2 but also has not been repeated. I will continue to trend her LFT, WBC and inflammatory markers along w/ repeat her U.S. tomorrow. Professional time spent interviewing and examining patient, discussion of goals of care with hospital team (care management, nursing and consulting professionals) was 30 minutes. (2) Type 2 diabetes mellitus: Status: Chronic Assessment and plan: Before meals and at bedtime coverage with sliding scale glucometer measurements and short acting insulin. Controlled. (3) HTN (hypertension): Status: Chronic Assessment and plan: Continue outpatient medications adjusting as needed during the hospital stay. BP trending higher in 150's to 190. Currently is on lisinopril 10 mg daily which is her home dose. Will monitor but if continues on the high side even though she has no pain, then will likely need adjustment in her dose or addition of additional agent. (4) Hyperlipidemia: Status: Chronic Assessment and plan: Continue outpatient statin Total chol. 156. (5) Endometrial carcinoma: Status: Resolved Assessment and plan: With surgery in April 2022 and slow recovery. She had complete removal with radiation therapy afterwards and has no evidence of disease per patient. This was diagnosed as patient had postmenopausal bleeding. (6) Discharge planning issues: Status: Acute Assessment and plan: Full Code Subjective Subjective Interval history since last seen: Patient denies any abdominal pain, nausea or vomiting. Tolerating clear liquids. her LFT are improving. I told her that we would try to gradually increase her diet but I will repeat her US of her abdomen tomorrow to see if the CBD has improved. If not then will discuss w/ [facility] about down and back for ERCP. For now continue ursodiol, and empiric Zosyn. She is afebrile. Exam Narrative Exam Narrative: Alert and oriented x 3, sitting up in her chair watching TV. No discomfort or distress Skin: nondiaphoretic, dry, warm (but not hot) Lungs: clear Heart: RRR Abdomen: soft, normal bowel sounds, nontender to palpation Objective Last Vital Signs Temp 36.1 C L 07/30/22 06:21 Pulse 87 07/30/22 08:18 Resp 16 07/30/22 06:21 BP 153/85 H 07/30/22 08:18 Pulse Ox 97 07/30/22 06:21 Laboratory Results - last 24 hr 07/30/22 07/30/22 07/30/22 06:17 06:17 06:17 WBC 3.98 L RBC 3.36 L Hgb 10.3 L Hct 31.5 L MCV 94 MCH 30.7 MCHC 32.7 RDW 14.6 Plt Count 92 L MPV 11.7 H Immature Gran % 0.5 Neutrophils % 59.3 Lymphocytes % 28.4 Monocytes % 7.5 Eosinophils % 3.3 Basophils % 1.0 Nucleated RBC % 0.0 Absolute Neutrophils 2.36 Absolute Lymphocytes 1.13 L Absolute Monocytes 0.30 Absolute Eosinophils 0.13 Absolute Basophils 0.04 Sodium 146 H Potassium 4.0 Chloride 109 H Carbon Dioxide 26.8 Anion Gap 10.2 BUN 7 Creatinine 1.1 H Est GFR (CKD-EPI 2020) 53.39 Glucose 124 H Calcium 9.0 Magnesium 1.9 Total Bilirubin 1.6 H AST 85 H ALT 151 H Alkaline Phosphatase 261 H Total Protein 6.5 Albumin 2.7 L PAWSS Have you Been Recently Intoxicated or Drunk Within the Last 30 days?: No Have you Ever Experienced Previous Episodes of Alcohol Withdrawal?: No Have you ever Experienced Withdrawal Seizures?: No Have you ever Experienced Delirium Tremens(DT)s?: No Have you ever undergone Alcohol Rehabilitation Treatment (i.e, inpt ot outpatient treatment programs)?: No Have you ever Experienced Blackouts?: No Have you ever Combined Alcohol with other Downers within the last 90 days?: No Have you ever Combined Alcohol with any other Substance of Abuse during the last 90 days?: No Positive Blood Alcohol level on Presentation? [PCS.BAL]: No Evidence of Increased Autonomic Activity (i.e. HR>120, tremor, sweating, agitation, nausea)?: No Result: 0 Time Spent with Patient Time Spent with Patient: 25-34 minutes Time was spent: preparing to see the patient(eg.review tests), obtaining and/or reviewing separately otained hiistory, ordering medications,tests, procedures, referring, communicating with other health care director rn (Discussion with Dr. Guerra), indepentently interpreting results, counseling the patient and care coordination
[2022-07-30] MEDS: Insulin Aspart 300 UNITS/3 ML PEN SC ×2 (12:00→21:26)
[2022-07-30] MEDS: Ursodiol 300 MG CAP PO ×2 (14:39→20:27)
[2022-07-30] MEDS: Heparin 5,000 UNITS/ML VIAL 5000 UNITS SC ×2 (15:56→20:28)
[2022-07-30] MEDS: Magnesium Oxide 400 MG TAB PO (20:27)
[2022-07-30] MEDS: Simvastatin 10 MG TAB PO (20:27)
--- NOTE | 2022-07-31 | DI.CT_ITS ---
Exam(s) CT ABDOMEN PELVIS W EXAM: CT ABDOMEN PELVIS W CLINICAL HISTORY: RUQ abdominal pain TECHNIQUE: Imaging Protocol: Axial computed tomography images with coronal and sagittal reformatted images were created and reviewed CONTRAST MATERIAL: Intravenous: Omnipaque 350 Contrast volume:99 mL Oral: Yes COMPARISON: CT CT THORAX ABD/PEL CTA from 07/27/2022 FINDINGS: ABDOMEN: Lung Bases: There is atelectasis in the lung bases. Liver: There is a lobulated contour of the left lobe of the liver suggesting hepatic cirrhosis. No h epatic mass is seen. Calcifications are again seen within the liver. Portal, Superior Mesenteric, and Splenic Veins: Unremarkable. Gallbladder and Biliary Tract: Status post cholecystectomy. No change in appearance of the extrahepa tic bile ducts. Pancreas: Normal density, no abnormal calcifications or inflammatory process. Spleen: Normal. Adrenals: No masses seen. Kidneys: Normal size, contour and axis. No radiodense stones or obstructive uropathy. No masses seen. Abdominal Aorta: Abdominal portion non-dilated. Atherosclerosis. Bowel: No obstruction or bowel wall thickening. Appendix is unremarkable. There is diverticulosis of the colon, but no evidence of acute diverticulitis. Peritoneal Cavity: No ascites, collection or mesenteric inflammatory response. No free air. Lymph Nodes: Within normal limits. Bones: Within normal limits for the patient's age. There are marked degenerative changes seen in the hips bilaterally. Soft Tissues: Unremarkable. PELVIS: Bladder: Symmetric distention, no gross wall thickening. Reproductive Organs: Status post hysterectomy. Lymph Nodes: Within normal limits. Bones: Within normal limits for the patient's age. IMPRESSION: No acute abdominal or pelvic process. RADIATION DOSE DELIVERED: 1,549.87mGy.cm Total DLP DATA REPOSITORY: All CT scans at this facility are submitted to the National Radiology Data Registry (NRDR) Dose Index Registry (DIR) with the [employer] (A[employer]). RADIATION OPTIMIZATION: All CT scans at this facility use at least one of these dose optimization te chniques: automated exposure control; mA and/or kV adjustment per patient size (includes targeted exa ms where dose is matched to clinical indication); or iterative reconstruction.
[2022-07-31] MEDS: Heparin 5,000 UNITS/ML VIAL 5000 UNITS SC ×2 (04:56→13:05)
[2022-07-31] MEDS: PIPERACILLIN/TAZO 3.375 GM in Normal Saline 50 ML IVPB ×4 (04:57→21:35)
[2022-07-31 04:58] VITALS: BP 155/80; PULSE 70; RESP 14; TEMP 36.2; O2SAT 94
[2022-07-31 06:21] LABS: Abs Immature Grans 0.02 10^3/uL (0.0-0.06); Absolute Basophil Count 0.04 10^3/uL (0.0-0.2); Absolute Eosinophil Count 0.17 10^3/uL (0.0-0.7); Absolute Lymphocyte Count 1.29 10^3/uL (1.2-3.4); Absolute Monocyte Count 0.34 10^3/uL (0.1-0.8); Absolute Neutrophil Count 2.19 10^3/uL (1.2-6.7); Eosinophils % 4.2; HCT 32.5 % (36.0-46.0); HGB 10.5 g/dL (11.2-15.7); Immature Grans % 0.5; Lymphocytes % 31.9; MCH 30.4 pg (27.0-33.0); MCHC 32.3 % (32.0-36.0); MCV 94 fL (80-95); MPV 11.4 fL (8.0-11.0); Monocytes % 8.4; RBC 3.45 10^6/uL (3.93-5.22); RDW 14.7 % (11.7-14.6); RDW-SD 50.9 fL; WBC 4.05 10^3/uL (4.4-10.8)
[2022-07-31 06:43] LABS: Bilirubin, Direct 0.5 mg/dL (0.0-0.2)
[2022-07-31 06:44] LABS: ALT 115 U/L (14-59); AST 54 U/L (15-37); Albumin 2.8 g/dL (3.4-5.0); Alkaline Phosphatase 234 U/L (46-116); Anion Gap 6.9 mmol/L (3-11); BUN 7 mg/dL (7-18); C-Reactive Protein 1.49 mg/dL (0.0-0.3); CO2 26.1 mmol/L (21.0-32.0); Chloride 109 mmol/L (98-107); Estimated GFR 59.86 (mL/min/1.73m2); Glucose 126 mg/dL (74-106); Potassium 4.1 mmol/L (3.5-5.1); Sodium 142 mmol/L (136-145); Total Protein 6.7 g/dL (6.4-8.2)
[2022-07-31 06:49] LABS: Diff Comment Diff Reviewed; Platelet Count 98 10^3/uL (130-400); RBC Morphology Normal
--- NOTE | 2022-07-31 07:00 | DI.US_ITS ---
Exam(s) US ABDOMEN LIMITED EXAM: US ABDOMEN LIMITED CLINICAL HISTORY: choledocholithiasis TECHNIQUE: Ultrasound abdomen performed using standard protocol. COMPARISON: CT CT THORAX ABD/PEL CTA from 07/27/2022 MR MR ABDOMEN WO from 07/28/2022 FINDINGS: There is no ascites evident. LIVER: Liver echotexture is somewhat coarsened but there are no discrete focal hepatic masses evident . GALLBLADDER/BILIARY: Gallbladder surgically absent. The common hepatic duct isdilated, measuring 10-11mm at the level of michael hepatis. PANCREAS: There is a small cyst at junction of the body and tail of the pancreas which measures appro ximately 6 millimeters size, corresponding to what is seen on recent MRI. RIGHT KIDNEY:No evidence of solid mass, calculus, nor hydronephrosis. No cortical cysts evident. IMPRESSION: 1. The gallbladder surgically absent. Common bile duct measures 10-11 millimeters is probably relat ed to post cholecystectomy status and patient's age. There are no obvious calculi seen within the CB D on these images. If clinically indicated follow-up MRCP can be performed. This will better visual ize the lower most aspect of the CBD which is difficult to visualize ultrasound. 2. There is a benign-appearing cystic structure in the pancreas at the junction of the body and tail measuring approximately 6 mm size and corresponding to what is seen on recent MRI scan. No other fo mary pancreatic findings. Pancreatic duct is not dilated. There no peripancreatic fluid collections. 3. Liver echotexture is coarse but there are no discrete focal hepatic lesions. There is no ascites . DATA REPOSITORY:
[2022-07-31 07:02] LABS: Procalcitonin 0.1 ng/mL
[2022-07-31] MEDS: Nystatin POWDER 60 GM JAR TP ×2 (08:21→20:08)
[2022-07-31] MEDS: Ursodiol 300 MG CAP PO ×3 (09:40→20:08)
[2022-07-31] MEDS: Lisinopril 5 MG TAB 10 MG PO (09:40)
[2022-07-31] MEDS: Pantoprazole 20 MG TABCR PO (09:40)
[2022-07-31] MEDS: Metoprolol 50 MG TAB PO ×2 (09:40→20:07)
[2022-07-31 09:52] VITALS: BP 158/72; PULSE 62; RESP 16; TEMP 36.2; O2SAT 99
--- NOTE | 2022-07-31 10:03 | W.PM.PROGNOT ---
Date of Service Date of service: 07/31/22 Time of Service: 10:03 Assessment and Plan Assessment and plan (1) Choledocholithiasis with obstruction: Start date: 07/27/22 Status: Acute Assessment and plan: Patient continues to improve. She remains afebrile. No abdominal pain nausea or vomiting. Tolerating full liquid diet. Labs demonstrate normal white count of 4000 and improvement in her LFTs with a total bilirubin down to 1.0. Conjugated bilirubin is 0.5. AST ALT and alkaline phosphatase are all declining. Patient is requesting return home. I think if she tolerates a regular diet this afternoon she could probably go home with follow-up labs next week. I told her this depends on whether there is still evidence of obstruction of her common bile duct. Abdominal ultrasound is pending at this time.. Upon discharge patient will be sent home with a prescription for ursodiol. Professional time spent interviewing and examining patient, discussion of goals of care with hospital team (care management, nursing and consulting professionals) was 30 minutes. (2) Type 2 diabetes mellitus: Status: Chronic Assessment and plan: Before meals and at bedtime coverage with sliding scale glucometer measurements and short acting insulin. Controlled. (3) HTN (hypertension): Status: Chronic Assessment and plan: BPs running in the 140s to 150s today. Patient remains on her previous dose of lisinopril 10 mg daily. (4) Hyperlipidemia: Status: Chronic Assessment and plan: Continue outpatient statin Total chol. 156. (5) Endometrial carcinoma: Status: Resolved Assessment and plan: With surgery in April 2022 and slow recovery. She had complete removal with radiation therapy afterwards and has no evidence of disease per patient. This was diagnosed as patient had postmenopausal bleeding. (6) Discharge planning issues: Status: Acute Assessment and plan: Full Code Subjective Subjective Interval history since last seen: Oly is doing much better. LFT are improving and she is afebrile w/ normal WBC. She tolerated full liquid diet at supper last night. No abdominal pain or nausea.She has not had breakfast this morning she is n.p.o. for ultrasound. Ultrasound shows no dilatation of the common bile duct and I will advance her meal to solid foods at lunchtime. Patient is asking if she can return home today. I told her that if she is tolerating her diet and her ultrasound did not show any CBD dilatation then she could return home and I will get follow up labs on her next week. Exam Narrative Exam Narrative: And oriented x3. Sitting up in her chair watching TV. Lungs are clear to auscultation Heart is regular rate and rhythm without murmur rub or gallop Abdomen soft nontender normal bowel sounds nondistended Objective Last Vital Signs Temp 36.2 C L 07/31/22 09:52 Pulse 62 07/31/22 09:52 Resp 16 07/31/22 09:52 BP 158/72 H 07/31/22 09:52 Pulse Ox 99 07/31/22 09:52 Laboratory Results - last 24 hr 07/31/22 07/31/22 07/31/22 06:05 06:05 06:05 WBC 4.05 L RBC 3.45 L Hgb 10.5 L Hct 32.5 L MCV 94 MCH 30.4 MCHC 32.3 RDW 14.7 H Plt Count 98 L MPV 11.4 H Immature Gran % 0.5 Neutrophils % 54.0 Lymphocytes % 31.9 Monocytes % 8.4 Eosinophils % 4.2 Basophils % 1.0 Nucleated RBC % 0.0 Absolute Neutrophils 2.19 Absolute Lymphocytes 1.29 Absolute Monocytes 0.34 Absolute Eosinophils 0.17 Absolute Basophils 0.04 RBC Morphology Normal Sodium 142 Potassium 4.1 Chloride 109 H Carbon Dioxide 26.1 Anion Gap 6.9 BUN 7 Creatinine 1.0 Est GFR (CKD-EPI 2020) 59.86 Glucose 126 H Calcium 9.0 Total Bilirubin 1.0 Conjugated Bilirubin AST 54 H ALT 115 H Alkaline Phosphatase 234 H C-Reactive Protein 1.49 H Total Protein 6.7 Albumin 2.8 L Procalcitonin 0.1 07/31/22 06:05 WBC RBC Hgb Hct MCV MCH MCHC RDW Plt Count MPV Immature Gran % Neutrophils % Lymphocytes % Monocytes % Eosinophils % Basophils % Nucleated RBC % Absolute Neutrophils Absolute Lymphocytes Absolute Monocytes Absolute Eosinophils Absolute Basophils RBC Morphology Sodium Potassium Chloride Carbon Dioxide Anion Gap BUN Creatinine Est GFR (CKD-EPI 2020) Glucose Calcium Total Bilirubin Conjugated Bilirubin 0.5 H AST ALT Alkaline Phosphatase C-Reactive Protein Total Protein Albumin Procalcitonin PAWSS Have you Been Recently Intoxicated or Drunk Within the Last 30 days?: No Have you Ever Experienced Previous Episodes of Alcohol Withdrawal?: No Have you ever Experienced Withdrawal Seizures?: No Have you ever Experienced Delirium Tremens(DT)s?: No Have you ever undergone Alcohol Rehabilitation Treatment (i.e, inpt ot outpatient treatment programs)?: No Have you ever Experienced Blackouts?: No Have you ever Combined Alcohol with other Downers within the last 90 days?: No Have you ever Combined Alcohol with any other Substance of Abuse during the last 90 days?: No Positive Blood Alcohol level on Presentation? [PCS.BAL]: No Evidence of Increased Autonomic Activity (i.e. HR>120, tremor, sweating, agitation, nausea)?: No Result: 0 Time Spent with Patient Time Spent with Patient: 25-34 minutes Time was spent: preparing to see the patient(eg.review tests), ordering medications,tests, procedures, indepentently interpreting results, counseling the patient and care coordination
[2022-07-31 14:49] LABS: ANA Interpretation Positive (Negative); ANA Titer Pattern 1:320 Homogeneous
[2022-07-31 15:47] VITALS: BP 209/95; PULSE 73; RESP 26; TEMP 37; O2SAT 97
[2022-07-31] MEDS: Ketorolac 30 MG/ML VIAL IVP (15:57)
[2022-07-31] MEDS: Prochlorperazine 10 MG/2 ML VIAL 5 MG IVP (15:58)
[2022-07-31] MEDS: Normal Saline Flush 10 ML SYR IVP ×2 (15:58→18:06)
--- NOTE | 2022-07-31 15:58 | W.EVENT ---
Date of service: 07/31/22 Time of Service: 15:58 Event Note: Patient had felt fine after lunch and I came around to go over her US of her abdomen w/ her and to prepare her for discharge, when I arrived she was sitting up at the bedside complaining of RUQ abdomen and nausea. No CP. BP was elevated at 170/90, HR 73, spo2 97% on RA, RR 26. Abdomen: + bowel sounds, soft but verry tender in the RUQ, no rebound tenderness; no tenderness in LUQ,LLQ, RLQ. A/P: RUQ pain in patient w/ prior choledocholithasis. Although her U.S. of her abdomen did not show any stones and the CBD of 10 to 11 mm is not uncommon post cholecystectomy, I suspect that she is passing some stones. Iwill also get EKG to be sure that this is not ischemic pain. I have ordered repeat labs including BMP, liver profile, troponin, CRP and procalcitonin. I will make her NPO, get CT scan of her abdomen. I have contacted our surgeon but will also call [facility] to discuss possible transfer for ERCP. Time Spent with Patient Time spent in critical care(minutes): 30 Time Spent Included: Coordination of care, Chart review, Time at immediate bedside and Discussing critically ill care with other medical staff
--- NOTE | 2022-07-31 16:00 | RT.EKG_ITS ---
APPROVED REPORT Exam: Resting ECG Reason for Exam: CHEST PAIN Patient Location: I HR:78 bpm ECG Measurements Heart Rate 78 AXIS SD 143 P 6 QRSd 93 QRS -16 QT 413 T 57 QTc 471 Conclusion Sinus rhythm...normal P axis, V-rate 50- 99 Ventricular bigeminy...bigeminy string>4 w/ V complexes Abnormal R-wave progression, early transition...QRS area>0 in V2 Inferior infarct, old...Q >35mS, II III aVF Baseline wander in lead(s) V1
[2022-07-31] MEDS: Breeza Beverage 473 ML BTL PO (16:12)
[2022-07-31] MEDS: Omnipaque 350 MG/ML 50 ML BTL IJ (16:13)
[2022-07-31 16:34] LABS: Lactate 1.4 mmol/L (0.6-1.4)
[2022-07-31 16:37] LABS: Abs Immature Grans 0.02 10^3/uL (0.0-0.06); Absolute Basophil Count 0.04 10^3/uL (0.0-0.2); Absolute Eosinophil Count 0.15 10^3/uL (0.0-0.7); Absolute Lymphocyte Count 0.99 10^3/uL (1.2-3.4); Absolute Monocyte Count 0.37 10^3/uL (0.1-0.8); Basophils % 0.7; Eosinophils % 2.7; HCT 35.4 % (36.0-46.0); HGB 11.7 g/dL (11.2-15.7); Immature Grans % 0.4; Lymphocytes % 18.1; MCHC 33.1 % (32.0-36.0); MCV 94 fL (80-95); Monocytes % 6.8; Neutrophils % 71.3; RBC 3.77 10^6/uL (3.93-5.22); RDW 14.6 % (11.7-14.6); RDW-SD 50.4 fL; WBC 5.47 10^3/uL (4.4-10.8)
--- NOTE | 2022-07-31 16:38 | PDOC.CMPRO ---
- If Service Date Differs Date of service: 07/31/22 Time of Service: 16:38 Care Management Progress Note S/O: Oly was sitting up in her chair preparing to eat lunch when CM met with her. She reported that per MD, if she tolerates lunch, and her U/S results look good, she may be able to return home today. She is looking forward to going home. Per report, she stated that she tolerated her lunch, then later when MD met with her to discuss discharge, she was having pain. MD ordered labs and consulted surgery. CM will continue to follow. A: Oly is a 72 year old female admitted to [facility] on 07/30/22 for choledocholithiasis with obstruction. P: Oly is likely going to go to [facility] for a down and back procedure for an ERCP once a bed becomes available. She will remain at [facility] being closely monitored until this procedure. She will follow up with her PCP and discharge plan of care once she is medically cleared to return home. CM will continue to follow.
[2022-07-31 16:54] LABS: Platelet Count 89 10^3/uL (130-400)
[2022-07-31 16:56] LABS: ALT 126 U/L (14-59); AST 89 U/L (15-37); Alkaline Phosphatase 258 U/L (46-116); Anion Gap 7.6 mmol/L (3-11); BUN 7 mg/dL (7-18); Bilirubin, Direct 1.2 mg/dL (0.0-0.2); Bilirubin, Total 1.9 mg/dL (0.2-1.0); CO2 25.4 mmol/L (21.0-32.0); CREATININE 1.1 mg/dL (0.55-1.02); Calcium 9.3 mg/dL (8.5-10.1); Chloride 107 mmol/L (98-107); Estimated GFR 53.39 (mL/min/1.73m2); Glucose 172 mg/dL (74-106); Lipase 52 U/L (16-77); Potassium 4.5 mmol/L (3.5-5.1); Sodium 140 mmol/L (136-145); Total Protein 7.5 g/dL (6.4-8.2)
[2022-07-31 17:01] LABS: C-Reactive Protein 1.48 mg/dL (0.0-0.3); Troponin I < 50 ng/L (<or=60)
[2022-07-31] MEDS: Omnipaque 350 MG/ML 100 ML BTL IJ (18:03)
[2022-07-31] MEDS: Normal Saline - Diluent 50 ML VIAL IJ (18:03)
--- NOTE | 2022-07-31 18:38 | DI.VRAD_ITS ---
PROCEDURE INFORMATION: Exam: CT Abdomen And Pelvis With Contrast Exam date and time: 07/31/2022 5:55 PM Age: 72 years old Clinical indication: Other: Ruq abdominal pain TECHNIQUE: Imaging protocol: Computed tomography of the abdomen and pelvis with contrast. Radiation optimization: All CT scans at this facility use at least one of these dose optimization techniques: automated exposure control; mA and/or kV adjustment per patient size (includes targeted exams where dose is matched to clinical indication); or iterative reconstruction. Contrast material: OMNIPAQUE 350; Contrast volume: 99 ml; Contrast route: INTRAVENOUS (IV); Other contrast: Oral, omnipaque 350, 50; COMPARISON: MR ABDOMEN WO 28/07/2022 12:54 FINDINGS: Lungs: Visualized lung bases are clear. Liver: Liver shows left lobe prominence with surface nodularity consistent with cirrhosis. No mass or ductal dilatation. Gallbladder and bile ducts: Gallbladder has been removed. Pancreas: Normal. No mass or ductal dilation. Spleen: Spleen remains within normal limits in size measuring 11.5 cm. Adrenal glands: Normal. No mass. Kidneys and ureters: Normal. No hydronephrosis, calculus, cyst or mass. Stomach and bowel: Normal transit of GI contrast from stomach through small bowel into the colon. No bowel dilatation or wall thickening. Diverticular disease throughout the descending and sigmoid segments but without signs of acute diverticulitis. Appendix: No evidence of appendicitis. Intraperitoneal space: Unremarkable. No free air. No significant fluid collection. Vasculature: Unremarkable. No abdominal aortic aneurysm or significant atherosclerosis. Lymph nodes: No enlarged retroperitoneal or mesenteric lymph nodes. Urinary bladder: No mass or wall thickening. Reproductive: Previous hysterectomy. No adnexal cyst or mass. Bones/joints: Degenerative changes in the lumbar spine and in the hips. Soft tissues: Unremarkable. IMPRESSION: Cirrhotic liver morphology. No acute abnormality in the abdomen or pelvis. Dictated and Authenticated by: Colin Duke MD. Ordering:[facility] Ermelinda Javier MD
[2022-07-31] MEDS: Simvastatin 10 MG TAB PO (20:07)
[2022-07-31] MEDS: Magnesium Oxide 400 MG TAB PO (20:08)
[2022-07-31] MEDS: Insulin Aspart 300 UNITS/3 ML PEN SC (21:37)
[2022-07-31 23:49] VITALS: BP 168/63; PULSE 70; RESP 16; TEMP 36.1; O2SAT 97
[2022-08-01 03:20] VITALS: BP 158/68; PULSE 70; RESP 16; TEMP 36.3; O2SAT 97
[2022-08-01] MEDS: PIPERACILLIN/TAZO 3.375 GM in Normal Saline 50 ML IVPB ×4 (05:04→20:40)
[2022-08-01 06:24] LABS: Abs Immature Grans 0.01 10^3/uL (0.0-0.06); Absolute Basophil Count 0.02 10^3/uL (0.0-0.2); Absolute Eosinophil Count 0.12 10^3/uL (0.0-0.7); Absolute Lymphocyte Count 0.91 10^3/uL (1.2-3.4); Absolute Monocyte Count 0.27 10^3/uL (0.1-0.8); Absolute Neutrophil Count 2.02 10^3/uL (1.2-6.7); Basophils % 0.6; Eosinophils % 3.6; HCT 32.8 % (36.0-46.0); HGB 10.7 g/dL (11.2-15.7); Immature Grans % 0.3; Lymphocytes % 27.2; MCH 30.7 pg (27.0-33.0); MCHC 32.6 % (32.0-36.0); MCV 94 fL (80-95); MPV 11.6 fL (8.0-11.0); Monocytes % 8.1; Neutrophils % 60.2; RBC 3.49 10^6/uL (3.93-5.22); RDW 14.6 % (11.7-14.6); RDW-SD 49.6 fL; WBC 3.35 10^3/uL (4.4-10.8)
[2022-08-01 06:38] LABS: ALT 120 U/L (14-59); AST 85 U/L (15-37); Albumin 2.7 g/dL (3.4-5.0); Alkaline Phosphatase 233 U/L (46-116); Anion Gap 9.9 mmol/L (3-11); BUN 7 mg/dL (7-18); Bilirubin, Total 2.4 mg/dL (0.2-1.0); C-Reactive Protein 1.22 mg/dL (0.0-0.3); CO2 25.1 mmol/L (21.0-32.0); CREATININE 1.2 mg/dL (0.55-1.02); Calcium 8.9 mg/dL (8.5-10.1); Chloride 107 mmol/L (98-107); Estimated GFR 48.09 (mL/min/1.73m2); Glucose 122 mg/dL (74-106); Sodium 142 mmol/L (136-145); Total Protein 6.8 g/dL (6.4-8.2)
[2022-08-01 06:54] LABS: Platelet Count 99 10^3/uL (130-400)
[2022-08-01 08:00] VITALS: BP 163/91; PULSE 67; RESP 24; TEMP 36.7; O2SAT 97
[2022-08-01] MEDS: Lisinopril 5 MG TAB 10 MG PO ×2 (08:19→12:54)
[2022-08-01] MEDS: Ursodiol 300 MG CAP PO ×3 (08:19→20:40)
[2022-08-01] MEDS: Nystatin POWDER 60 GM JAR TP ×2 (08:19→20:41)
[2022-08-01] MEDS: Metoprolol 50 MG TAB PO ×2 (08:19→20:40)
[2022-08-01] MEDS: Pantoprazole 20 MG TABCR PO (08:19)
[2022-08-01 08:38] LABS: Lab Add On Test DONE
[2022-08-01 08:54] LABS: Bilirubin, Direct 2.1 mg/dL (0.0-0.2)
[2022-08-01] MEDS: Normal Saline Flush 10 ML SYR IVP ×2 (09:26→12:55)
--- NOTE | 2022-08-01 11:18 | CMPROGNOTE_ITS ---
- If Service Date Differs Date of service: 08/01/22 Time of Service: 11:18 Care Management Progress Note S/O: Oly was sitting up in her chair when CM met with her. She stated that she is feeling ok today, and has talked to the MD this morning about her plan. She reported that she was hoping to return home last night, but had pain after eating lunch. She stated that per MD, she will go to [facility] tomorrow morning for a 'down and back' ERCP. She stated that she is glad to be going and having the procedure, and hopes that she will be able to return home shortly after. CM will continue to follow. A: Oly is a 72 year old female admitted to [facility] on 07/30/22 for choledocholithiasis with obstruction. P: Oly is likely going to go to [facility] for a down and back procedure for an ERCP once a bed becomes available. She will remain at [facility] being closely monitored until this procedure. She will follow up with her PCP and discharge plan of care once she is medically cleared to return home. CM will continue to follow.
[2022-08-01 11:33] VITALS: BP 168/65; PULSE 62; RESP 20; TEMP 36.5; O2SAT 98
[2022-08-01] MEDS: Lactated Ringers 1,000 ML 65 ML IV (12:55)
[2022-08-01] MEDS: Furosemide 20 MG/2 ML VIAL IVP (12:55)
--- NOTE | 2022-08-01 13:01 | PGE_ITS ---
Date of Service Date of service: 08/01/22 Time of Service: 13:01 Assessment and Plan Assessment and plan (1) Choledocholithiasis with obstruction: Start date: 07/27/22 Status: Acute Assessment and plan: Patient had a flareup yesterday afternoon and seems to be improving today. I suspect either she has a small CBD stone that is passed or is acting as a check valve and intermittently is allowing bile flow. Nevertheless her total bilirubin which came back to normal yesterday at 1.0 is now up to 2.4. Her conjugated bilirubin is up to 2.1. Her AST which had declined down to 54 yesterday morning is now up to 85 and her ALT is up to 121 her alkaline phosphatase is at 233. Patient is currently on ursodiol Patient will be transferred over to [facility] for an ERCP to be former Dr. Lizette Mendoza for tomorrow morning. Professional time spent interviewing and examining patient, discussion of goals of care with hospital team (care management, nursing and consulting professionals) was 45 minutes. (2) Type 2 diabetes mellitus: Status: Chronic Assessment and plan: Before meals and at bedtime coverage with sliding scale glucometer measurements and short acting insulin. Controlled. (3) HTN (hypertension): Status: Chronic Assessment and plan: BP running in the 150s to 160s upwards of 200 last night. The systolic pressure of 200 was associated with the acute abdominal pain. I have increased her lisinopril from 10 mg daily to 20 mg daily. We will continue to monitor her blood pressure. We can use IV hydralazine as needed for systolic pressures remain at 190 or higher. (4) Hyperlipidemia: Status: Chronic Assessment and plan: Continue outpatient statin Total chol. 156. (5) Endometrial carcinoma: Status: Resolved Assessment and plan: With surgery in April 2022 and slow recovery. She had complete removal with radiation therapy afterwards and has no evidence of disease per patient. This was diagnosed as patient had postmenopausal bleeding. (6) Discharge planning issues: Status: Acute Assessment and plan: Full Code Discharge home once her ERCP is complete and she is tolerating a low-fat diet. Possible discharge home morning unlikely to be discharged on Sunday afternoon as her ERCP is not scheduled till 2 PM Subjective Subjective Interval history since last seen: Patient states her abdominal pain is better today. She had hoped that her episode yesterday was secondary to some food that she ate. However explained to her that in fact her bilirubin and her transaminases increased over her levels from yesterday. She still afebrile has no leukocytosis. Think based on her abnormal MRCP she likely probably had recurrent choledocholithiasis yesterday. Although her abdomen is better today we will get a keep her n.p.o. and she is going to be sent for an ERCP tomorrow morning at the [facility]. I had a lengthy discussion with Dr. Lizette Mendoza who agrees that the patient deserves an ERCP. Patient be kept n.p.o. today and transfer will be made to [facility] to the endoscopy suite for tomorrow morning. She is sche duled to arrive there at 12:30 PM for procedure that will occur at 2 PM. We will stop her subcutaneous heparin this evening which she was placed on for DVT prophylaxis. Exam Narrative Exam Narrative: Oly is sitting up in her chair she is alert and oriented person place time circumstance no acute distress no dyspnea. Lungs are clear to auscultation Heart is regular rate and rhythm Abdomen obese soft with minimal tenderness in right upper quadrant no guarding and no rebound tenderness. Objective Last Vital Signs Temp 36.5 C 08/01/22 11:33 Pulse 62 08/01/22 11:33 Resp 20 08/01/22 11:33 BP 168/65 H 08/01/22 11:33 Pulse Ox 98 08/01/22 11:33 Laboratory Results - last 24 hr 07/28/22 07/31/22 07/31/22 06:20 16:23 16:23 WBC RBC Hgb Hct MCV MCH MCHC RDW Plt Count MPV Immature Gran % Neutrophils % Lymphocytes % Monocytes % Eosinophils % Basophils % Nucleated RBC % Absolute Neutrophils Absolute Lymphocytes Absolute Monocytes Absolute Eosinophils Absolute Basophils VBG Lactate Sodium 140 Potassium 4.5 Chloride 107 Carbon Dioxide 25.4 Anion Gap 7.6 BUN 7 Creatinine 1.1 H Est GFR (CKD-EPI 2020) 53.39 Glucose 172 H Calcium 9.3 Total Bilirubin 1.9 H Conjugated Bilirubin 1.2 H AST 89 H ALT 126 H Alkaline Phosphatase 258 H Troponin I < 50 C-Reactive Protein 1.48 H Total Protein 7.5 Albumin 3.0 L Lipase 52 PILAR Titer 1:320 Homogeneous PILAR Titer 2 Not Applicable PILAR Titer 3 Not Applicable PILAR Interpretation Positive A Add-On Test Request 07/31/22 07/31/22 08/01/22 16:23 16:23 06:15 WBC 5.47 RBC 3.77 L Hgb 11.7 Hct 35.4 L MCV 94 MCH 31.0 MCHC 33.1 RDW 14.6 Plt Count 89 L MPV 12.0 H Immature Gran % 0.4 Neutrophils % 71.3 Lymphocytes % 18.1 Monocytes % 6.8 Eosinophils % 2.7 Basophils % 0.7 Nucleated RBC % 0.0 Absolute Neutrophils 3.90 Absolute Lymphocytes 0.99 L Absolute Monocytes 0.37 Absolute Eosinophils 0.15 Absolute Basophils 0.04 VBG Lactate 1.4 Sodium 142 Potassium 4.0 Chloride 107 Carbon Dioxide 25.1 Anion Gap 9.9 BUN 7 Creatinine 1.2 H Est GFR (CKD-EPI 2020) 48.09 Glucose 122 H Calcium 8.9 Total Bilirubin 2.4 H Conjugated Bilirubin AST 85 H ALT 120 H Alkaline Phosphatase 233 H Troponin I C-Reactive Protein 1.22 H Total Protein 6.8 Albumin 2.7 L Lipase PILAR Titer PILAR Titer 2 PILAR Titer 3 PILAR Interpretation Add-On Test Request 08/01/22 08/01/22 08/01/22 06:15 06:15 06:15 WBC 3.35 L RBC 3.49 L Hgb 10.7 L Hct 32.8 L MCV 94 MCH 30.7 MCHC 32.6 RDW 14.6 Plt Count 99 L MPV 11.6 H Immature Gran % 0.3 Neutrophils % 60.2 Lymphocytes % 27.2 Monocytes % 8.1 Eosinophils % 3.6 Basophils % 0.6 Nucleated RBC % 0.0 Absolute Neutrophils 2.02 Absolute Lymphocytes 0.91 L Absolute Monocytes 0.27 Absolute Eosinophils 0.12 Absolute Basophils 0.02 VBG Lactate Sodium Potassium Chloride Carbon Dioxide Anion Gap BUN Creatinine Est GFR (CKD-EPI 2020) Glucose Calcium Total Bilirubin Conjugated Bilirubin 2.1 H AST ALT Alkaline Phosphatase Troponin I C-Reactive Protein Total Protein Albumin Lipase PILAR Titer PILAR Titer 2 PILAR Titer 3 PILAR Interpretation Add-On Test Request DONE PAWSS Have you Been Recently Intoxicated or Drunk Within the Last 30 days?: No Have you Ever Experienced Previous Episodes of Alcohol Withdrawal?: No Have you ever Experienced Withdrawal Seizures?: No Have you ever Experienced Delirium Tremens(DT)s?: No Have you ever undergone Alcohol Rehabilitation Treatment (i.e, inpt ot outpatient treatment programs)?: No Have you ever Experienced Blackouts?: No Have you ever Combined Alcohol with other Downers within the last 90 days?: No Have you ever Combined Alcohol with any other Substance of Abuse during the last 90 days?: No Positive Blood Alcohol level on Presentation? [PCS.BAL]: No Evidence of Increased Autonomic Activity (i.e. HR>120, tremor, sweating, agitation, nausea)?: No Result: 0 Time Spent with Patient Time Spent with Patient: 35-49 minutes Time was spent: preparing to see the patient(eg.review tests), ordering medications,tests, procedures, referring, communicating with other health vp care management (Dr. Mendoza), indepentently interpreting results, counseling the patient and care coordination
[2022-08-01 14:38] VITALS: BP 163/68; PULSE 57; RESP 20; TEMP 36.9; O2SAT 98
[2022-08-01] MEDS: Heparin 5,000 UNITS/ML VIAL 5000 UNITS SC (14:49)
[2022-08-01 19:58] VITALS: BP 170/92; PULSE 77; RESP 20; TEMP 36.5; O2SAT 99
[2022-08-01] MEDS: Simvastatin 10 MG TAB PO (20:40)
[2022-08-01] MEDS: Magnesium Oxide 400 MG TAB PO (20:40)
[2022-08-01 23:53] VITALS: BP 166/82; PULSE 61; RESP 14; TEMP 36.4; O2SAT 98
[2022-08-02 03:37] VITALS: BP 158/78; PULSE 64; RESP 16; TEMP 36.3; O2SAT 98
[2022-08-02] MEDS: PIPERACILLIN/TAZO 3.375 GM in Normal Saline 50 ML IVPB ×3 (03:56→23:06)
[2022-08-02] MEDS: Lactated Ringers 1,000 ML 65 ML IV (05:57)
[2022-08-02 07:15] LABS: Abs Immature Grans 0.02 10^3/uL (0.0-0.06); Absolute Basophil Count 0.02 10^3/uL (0.0-0.2); Absolute Eosinophil Count 0.12 10^3/uL (0.0-0.7); Absolute Lymphocyte Count 1.04 10^3/uL (1.2-3.4); Absolute Monocyte Count 0.35 10^3/uL (0.1-0.8); Absolute Neutrophil Count 2.09 10^3/uL (1.2-6.7); Basophils % 0.5; Eosinophils % 3.3; HCT 34.5 % (36.0-46.0); HGB 11.1 g/dL (11.2-15.7); Immature Grans % 0.5; Lymphocytes % 28.6; MCH 30.1 pg (27.0-33.0); MCHC 32.2 % (32.0-36.0); MCV 94 fL (80-95); MPV 12.1 fL (8.0-11.0); Monocytes % 9.6; Neutrophils % 57.5; Platelet Count 107 10^3/uL (130-400); RBC 3.69 10^6/uL (3.93-5.22); RDW 14.8 % (11.7-14.6); RDW-SD 50.7 fL; WBC 3.64 10^3/uL (4.4-10.8)
[2022-08-02 07:36] VITALS: BP 171/68; PULSE 57; RESP 16; TEMP 36.5; O2SAT 96
[2022-08-02 07:36] LABS: ALT 108 U/L (14-59); AST 65 U/L (15-37); Albumin 2.9 g/dL (3.4-5.0); Alkaline Phosphatase 227 U/L (46-116); Anion Gap 9.5 mmol/L (3-11); BUN 7 mg/dL (7-18); Bilirubin, Total 1.4 mg/dL (0.2-1.0); C-Reactive Protein 1.05 mg/dL (0.0-0.3); CO2 27.5 mmol/L (21.0-32.0); CREATININE 1.2 mg/dL (0.55-1.02); Calcium 9.4 mg/dL (8.5-10.1); Chloride 106 mmol/L (98-107); Estimated GFR 48.09 (mL/min/1.73m2); Glucose 100 mg/dL (74-106); Potassium 3.8 mmol/L (3.5-5.1); Sodium 143 mmol/L (136-145)
[2022-08-02] MEDS: Ursodiol 300 MG CAP PO ×2 (07:53→19:42)
[2022-08-02] MEDS: Lisinopril 20 MG TAB PO (07:54)
[2022-08-02] MEDS: Pantoprazole 20 MG TABCR PO (07:54)
[2022-08-02] MEDS: Metoprolol 50 MG TAB PO ×2 (07:54→19:42)
[2022-08-02] MEDS: Nystatin POWDER 60 GM JAR TP ×2 (08:44→20:38)
--- NOTE | 2022-08-02 09:58 | W.PM.PROGNOT ---
Date of Service Date of service: 08/02/22 Time of Service: 09:58 Assessment and Plan Assessment and plan (1) Choledocholithiasis with obstruction: Start date: 07/27/22 Status: Acute Assessment and plan: Patient had a flareup day before yesterday afternoon and and continues to improve.. I suspect either she has a small CBD stone that is passed or is acting as a check valve and intermittently is allowing bile flow. Transaminases and bilirubin and CRP are all trending downward but are not normal yet. Continue ursodiol. Currently n.p.o. for her ERCP today. Patient will be transferred over to [facility] for an ERCP to to be performed by Dr. Seble Mendoza this afternoon. Professional time spent interviewing and examining patient, discussion of goals of care with hospital team (care management, nursing and consulting professionals) was 20 minutes. (2) Type 2 diabetes mellitus: Status: Chronic Assessment and plan: Before meals and at bedtime coverage with sliding scale glucometer measurements and short acting insulin. Controlled. Currently n.p.o. morning blood sugar 100. (3) HTN (hypertension): Status: Chronic Assessment and plan: Blood pressure still running on the high side in the 150s to 160s. Lisinopril was increased yesterday. Blood pressures remain elevated after ERCP uptitrate her lisinopril and add Norvasc. (4) Hyperlipidemia: Status: Chronic Assessment and plan: Continue outpatient statin Total chol. 156. (5) Endometrial carcinoma: Status: Resolved Assessment and plan: With surgery in April 2022 and slow recovery. She had complete removal with radiation therapy afterwards and has no evidence of disease per patient. This was diagnosed as patient had postmenopausal bleeding. (6) Discharge planning issues: Status: Acute Assessment and plan: Full Code Discharge home once her ERCP is complete and she is tolerating a low-fat diet. Possible discharge home morning unlikely to be discharged on Sunday afternoon as her ERCP is not scheduled till 2 PM Subjective Subjective Interval history since last seen: [place] states she is feeling better today no abdominal pain nausea or vomiting. Denies any dyspnea. Review of her labs this morning shows her transaminases are trending downward AST 65, ALT 108, alkaline phosphatase 227 and her CRP is down to 1.05. Her total bilirubin is also trending downward at 1.4. The patient is scheduled to go to [facility] GI service for ERCP to be formed by Dr. Seble Mendoza. Exam Narrative Exam Narrative: In appearance sitting up in a chair she is alert and oriented person place time circumstance no acute distress Lungs are clear to auscultation Heart is regular bradycardic no murmur rub Abdomen obese soft and nontender no guarding or rebound tenderness she has active bowel sounds. Patient states she had a bowel movement yesterday. Objective Last Vital Signs Temp 36.5 C 08/02/22 07:36 Pulse 57 L 08/02/22 07:36 Resp 16 08/02/22 07:36 BP 171/68 H 08/02/22 07:36 Pulse Ox 96 08/02/22 07:36 Laboratory Results - last 24 hr 08/02/22 08/02/22 06:46 06:46 WBC 3.64 L RBC 3.69 L Hgb 11.1 L Hct 34.5 L MCV 94 MCH 30.1 MCHC 32.2 RDW 14.8 H Plt Count 107 L MPV 12.1 H Immature Gran % 0.5 Neutrophils % 57.5 Lymphocytes % 28.6 Monocytes % 9.6 Eosinophils % 3.3 Basophils % 0.5 Nucleated RBC % 0.0 Absolute Neutrophils 2.09 Absolute Lymphocytes 1.04 L Absolute Monocytes 0.35 Absolute Eosinophils 0.12 Absolute Basophils 0.02 Sodium 143 Potassium 3.8 Chloride 106 Carbon Dioxide 27.5 Anion Gap 9.5 BUN 7 Creatinine 1.2 H Est GFR (CKD-EPI 2020) 48.09 Glucose 100 Calcium 9.4 Total Bilirubin 1.4 H AST 65 H ALT 108 H Alkaline Phosphatase 227 H C-Reactive Protein 1.05 H Total Protein 7.0 Albumin 2.9 L PAWSS Have you Been Recently Intoxicated or Drunk Within the Last 30 days?: No Have you Ever Experienced Previous Episodes of Alcohol Withdrawal?: No Have you ever Experienced Withdrawal Seizures?: No Have you ever Experienced Delirium Tremens(DT)s?: No Have you ever undergone Alcohol Rehabilitation Treatment (i.e, inpt ot outpatient treatment programs)?: No Have you ever Experienced Blackouts?: No Have you ever Combined Alcohol with other Downers within the last 90 days?: No Have you ever Combined Alcohol with any other Substance of Abuse during the last 90 days?: No Positive Blood Alcohol level on Presentation? [PCS.BAL]: No Evidence of Increased Autonomic Activity (i.e. HR>120, tremor, sweating, agitation, nausea)?: No Result: 0 Time Spent with Patient Time Spent with Patient: <25 minutes Time was spent: preparing to see the patient(eg.review tests), ordering medications,tests, procedures, referring, communicating with other health child care group leader (Nursing staff), indepentently interpreting results, counseling the patient and care coordination
--- NOTE | 2022-08-02 11:16 | CMPROGNOTE_ITS ---
- If Service Date Differs Date of service: 08/02/22 Time of Service: 11:16 Care Management Progress Note S/O: CM saw Oly as she was going to the shower this morning, prior to her leaving. She went to [facility] for an ERCP, and will return later this evening. She is hopeful to be discharged after the procedure, possibly tomorrow. CM will continue to follow. A: Oly is a 72 year old female admitted to [facility] on 07/30/22 for choledocholithiasis with obstruction. P: Oly is likely going to go to [facility] for a down and back procedure for an ERCP today. She will remain at [facility] being closely monitored until this procedure. She will follow up with her PCP and discharge plan of care once she is medically cleared to return home. CM will continue to follow.
[2022-08-02 18:03] VITALS: BP 183/78; PULSE 67; RESP 16; TEMP 37; O2SAT 99
[2022-08-02 19:54] VITALS: BP 158/71; PULSE 62; RESP 14; TEMP 36.9; O2SAT 98
[2022-08-02] MEDS: Magnesium Oxide 400 MG TAB PO (20:38)
[2022-08-02] MEDS: Simvastatin 10 MG TAB PO (20:39)
[2022-08-02] MEDS: Insulin Aspart 300 UNITS/3 ML PEN SC (20:40)
[2022-08-02] MEDS: Normal Saline 500 ML 10 ML IV (23:07)
[2022-08-02 23:50] VITALS: BP 136/54; PULSE 57; RESP 16; TEMP 36.5; O2SAT 95
[2022-08-03 03:41] VITALS: BP 156/78; PULSE 86; RESP 17; TEMP 37; O2SAT 96
[2022-08-03] MEDS: PIPERACILLIN/TAZO 3.375 GM in Normal Saline 50 ML IVPB ×2 (05:14→12:24)
[2022-08-03 06:36] VITALS: BP 180/72; PULSE 60; RESP 18; TEMP 36.5; O2SAT 99
[2022-08-03 07:49] LABS: Abs Immature Grans 0.02 10^3/uL (0.0-0.06); Absolute Basophil Count 0.04 10^3/uL (0.0-0.2); Absolute Eosinophil Count 0.09 10^3/uL (0.0-0.7); Absolute Lymphocyte Count 1.31 10^3/uL (1.2-3.4); Absolute Monocyte Count 0.37 10^3/uL (0.1-0.8); Absolute Neutrophil Count 3.48 10^3/uL (1.2-6.7); Basophils % 0.8; Eosinophils % 1.7; HCT 36.9 % (36.0-46.0); Immature Grans % 0.4; Lymphocytes % 24.7; MCH 30.5 pg (27.0-33.0); MCHC 32.5 % (32.0-36.0); MCV 94 fL (80-95); MPV 11.2 fL (8.0-11.0); Neutrophils % 65.4; Platelet Count 130 10^3/uL (130-400); RBC 3.94 10^6/uL (3.93-5.22); RDW 14.7 % (11.7-14.6); RDW-SD 50.7 fL; WBC 5.31 10^3/uL (4.4-10.8)
[2022-08-03 08:14] LABS: ALT 97 U/L (14-59); AST 56 U/L (15-37); Albumin 3.1 g/dL (3.4-5.0); Alkaline Phosphatase 226 U/L (46-116); Anion Gap 8.9 mmol/L (3-11); BUN 8 mg/dL (7-18); Bilirubin, Direct 0.7 mg/dL (0.0-0.2); Bilirubin, Total 1.2 mg/dL (0.2-1.0); CO2 28.1 mmol/L (21.0-32.0); CREATININE 1.2 mg/dL (0.55-1.02); Calcium 9.3 mg/dL (8.5-10.1); Chloride 103 mmol/L (98-107); Estimated GFR 48.09 (mL/min/1.73m2); Glucose 104 mg/dL (74-106); Potassium 3.8 mmol/L (3.5-5.1); Sodium 140 mmol/L (136-145); Total Protein 7.8 g/dL (6.4-8.2)
[2022-08-03] MEDS: Lisinopril 20 MG TAB PO (08:23)
[2022-08-03] MEDS: amLODIPine 5 MG TAB PO (08:23)
[2022-08-03] MEDS: Metoprolol 50 MG TAB PO (08:23)
[2022-08-03] MEDS: Ursodiol 300 MG CAP PO (08:23)
[2022-08-03] MEDS: Pantoprazole 20 MG TABCR PO (08:23)
[2022-08-03] MEDS: Normal Saline Flush 10 ML SYR IVP (08:24)
[2022-08-03] MEDS: Nystatin POWDER 60 GM JAR TP (08:24)
[2022-08-03 09:45] VITALS: BP 145/65; PULSE 59; RESP 16; O2SAT 98
[2022-08-03 11:08] VITALS: BP 165/74; PULSE 61; RESP 16; TEMP 37.1; O2SAT 98
--- NOTE | 2022-08-03 11:55 | DSE_ITS ---
Date of service: 08/03/22 Time of Service: 11:55 DS: Diagnosis Discharge Diagnosis (1) Choledocholithiasis with obstruction: Status: Acute Asessment and Plan: 70-year-old female with a history of previous cholecystectomy and recent hysterectomy for uterine cancer with subsequent radiation therapy with complications requiring colon repair. She now presented with 3-day intermittent chest pains with radiation into her right infrascapular area and right upper quadrant of her abdomen. She was ruled out for acute myocardial infarction. Sed rate and CRP were elevated on admission but white cell count was normal.CTA of the chest abdomen pelvis was performed. This showed mild atherosclerotic changes in the abdominal aorta but no dissection or aneurysm no pulmonary embolism. Liver appeared to be cirrhotic. She was found to be status postcholecystectomy with common bile duct dilatation. 6 mm nodule versus stone was seen in the distal common bile duct. MRCP was recommended. Patient underwe nt MRCP on 07/28/2022. Exam was limited due to motion. Common bile duct was dilated with 2 adjacent 4 mm filling defects distally consistent with stones no mass was seen in the pancreatic head. Attempts were made to transfer her to [facility] for an ERCP but they were not accepting any transfers. Subsequently [facility] was contacted and I spoke with Dr. Seble Mendoza who upon review of her films and review of the patient's lab abnormalities which included elevated alkaline phosphatase and elevated bilirubin agreed to accept the patient for acute ERCP. This was accomplished on 08/02/2022. Please see Dr. Mendoza's notes for details. In summary they did fine common bile duct stone. After incision was made to the opening of her common bile duct guidewire was passed through the common bile duct and stone was extracted. Post procedure she had a retrograde cholangiogram that showed her common bile duct to be clear of any further obstructions. Patient was transferred back to [facility] on the evening of 08/02/2022 was given a clear liquid diet and the following morning on 08/03/2022 she had a regular diet outpatient low-fat and did well with this. Patient was started on ursodiol during her hospitalization. Patient's admission labs showed an elevated total bilirubin 2.5 with an AST of 236, ALT 250, alkaline phosphatase 322 and GGT of 982. Initially when she could not get transferred to [facility] or [facility] we treated her locally here at [facility] with IV fluids antiemetics and pain medications. Prior to finally being transferred for an ERCP she had a transient improvement in her symptoms and her diet had been advanced on 07/31/2022 when her bilirubin had normalized to 1.0 and her AST was down to 54 and ALT was down to 115 alkaline phosphatase down to 234. However after eating a low-fat solid diet for lunch she had a flareup of her pain on the afternoon of 07/31/2022 which necessitated the transfer for the ERCP. With the flareup her AST juan to as high as 89 and her bilirubin juan to as high as 2.4 with a conjugated bilirubin 2.1. On the day of discharge she still had a mildly elevated total bilirubin of 1.2 with a conjugated bilirubin of 0.7 however her AST was down to 56 and ALT was down to 97 and alkaline phosphatase was down to 226. CBC at discharge was normal. At this point she was tolerating a low-fat diet and with was requesting to return home. Follow-up liver profile be ordered in 1 week. Patient should see GI services at [facility] for follow-up. (2) Type 2 diabetes mellitus: Status: Chronic Asessment and Plan: Patient was treated with sliding scale insulin while she was n.p.o. Patient may her home diabetic medications of metformin. (3) HTN (hypertension): Status: Chronic Asessment and Plan: Patient had transient elevation of her blood pressures during hospitalization associated with nausea and pain. (4) Hyperlipidemia: Status: Chronic Asessment and Plan: Lipid profile was obtained during hospitalization. Her LDL is 96 total cholesterol 156 HDL 41 triglycerides 97. Her 12 dose should be increased from 10 mg at at bedtime to 20 mg at at bedtime or consider switching her to atorvastatin or rosuvastatin. (5) Endometrial carcinoma: Status: Resolved Asessment and Plan: Patient should follow-up with her [employer] and her oncologist regarding further treatment for endometrial carcinoma. Discharge Plan Disposition Condition: Improving Discharge Details Reason For Visit: Choledocholithiasis with Obstruction, NIDDM Admit Date/Time: 07/30/22 08:00 Admit Provider: Farhan Contreras Attending Provider: Farhan Contreras Primary Care Provider: Edna Gil Home Meds and New Rx's Prescriptions: New ursodiol 500 mg tablet 500 mg PO BID Qty: 60 0RF Continued metformin 750 mg tablet extended release 24 hr 750 mg PO DAILY metoprolol tartrate 50 mg tablet 50 mg PO BID simvastatin 10 MG tablet 10 mg PO HS Fish Oil 1 EACH capsule 1 ea PO DAILY Hold Instructions: Adverse Reaction cholecalciferol (vitamin D3) 25 mcg (1,000 unit) capsule 25 mcg PO DAILY calcium carbonate 600 mg calcium (1,500 mg) tablet 600 mg PO DAILY famotidine 20 mg tablet 20 mg PO QHS Rx Instructions: Pt takes everyother day, ibuprofen 800 mg tablet 800 mg PO TID PRN pantoprazole 20 mg tablet,delayed release (DR/EC) 20 mg PO .QOD Changed lisinopril 5 MG tablet 20 mg PO DAILY Qty: 0 0RF Patient Comments: 10/31/17-10mg PO daily Discharge Instructions Instructions: Gallstones (DC), Low Fat Diet (DC) Additional Instructions: You were admitted for evaluation of right upper quadrant abdominal pains and were found to have gallstones in your common bile duct (even though you do not have a gallbladder). This was confirmed on an MRCP. You were put on antibiotics to prevent infection from the obstruction to your common bile duct. You were sent to the [facility] where you were seen by Dr. Seble Mendoza, operations vice president, who performed an ERCP (endoscopic retrograde cholangiopancreatoscopy) and she made an incision in your opening to your common bile duct and removed a 12 mm stone. She then performed retrograde cholangiogram after the procedure and no further filling defect was found. You have been started on ursodiol to help dissolve your bile salts and to prevent further stone formation. Your PCP should refer you to gastroenterology for follow up. Your lisinopril dose was increased to 20 mg daily as her blood pressure is not well controlled. Please monitor blood pressure daily and follow-up with your primary care provider in the next week. Stand Alone Forms: Nursing Discharge Form Referrals: GASTROENTEROLOGY,[facility] [OTHER] - Edna Gil [Primary Care Provider] - 08/17/22 11:00 am Activity:: Activity as Tolerated Equipment/Supplies:: No Equipment Needed Diet:: low fat Discharge Orders Other Ambulatory Orders: Liver Panel (Routine) Timeframe: 1 Week Facility: [facility] - Location: Laboratory Outpatient - [facility] Ordered By: Yaya Wadsworth DS: Summary Time Spent with Patient providing and/or coordinating discharge services: Less than 30 minutes Specific discharge activities: Interview/exam of patient; review of discharge instructions, completion of prescriptions/discharge instructions; discussion w/ nursing and CM; documentation of hospital visit Status at Discharge Functional status at discharge: independent ambulation Overall status at discharge: patient is back to baseline Mental Status: mental status grossly normal Speech and Movement: speech and movement normal Mood: congruent mood Affect: normal affect Exam Const General: cooperative, comfortable, no acute distress, well developed and well groomed Nutritional Appearance: obese Orientation: alert, awake and oriented x3 GI Inspection: normal to inspection and obesity Palpation: soft, no hepatosplenomegaly and nontender Percussion: normal to percussion Auscultation: normal bowel sounds Skin Rashes: rashes noted (red rash over left forehead from area of where tape had been applied to her) macules left frontal region color red Psych Mental Status: mental status grossly normal Speech and Movement: speech and movement normal Mood: congruent mood Affect: normal affect DS: Data Vitals/I&O Vitals and I&O: Vital Signs Temperature 37.1 C 08/03/22 11:08 Temperature Source Tympanic 08/03/22 11:08 Pulse 61 08/03/22 11:08 Pulse Rhythm Regular 08/03/22 09:46 Pulse 68 07/28/22 00:10 Respiratory Rate 16 08/03/22 11:08 Respiratory Effort Normal 08/03/22 09:46 Respiratory Depth Normal 08/03/22 09:46 Respiratory Pattern Normal 08/03/22 09:46 Blood Pressure 165/74 H 08/03/22 11:08 Blood Pressure Mean 80 07/28/22 00:01 Pulse Oximetry 98 08/03/22 11:08 Oxygen Delivery Method Room Air 08/03/22 11:08 Oxygen Flow Rate 0 08/03/22 11:08 Pain Level 0 08/03/22 11:08 Comment BP after am po meds given 08/03/22 09:45 Intake & Output 08/02/22 08/02/22 08/03/22 11:59 23:59 11:59 Intake Total 970.916 / 1310.916 340 / 1310.916 290 / 290 Output Total 800 / 800 650 / 650 Balance 170.916 / 510.916 340 / 510.916 -360 / -360 Weight 95.2 kg 93.3 kg Intake: IV 970.916 / 1070.916 100 / 1070.916 50 / 50 Oral 240 / 240 240 / 240 Output: Urine 800 / 800 650 / 650 Other: Urine Color Yellow Yellow Urine Appearance Clear Clear Clear Urine Odor None Stool Size Moderate Stool Characteristics Liquid Voiding Methods Bedside Commode Data Completed and Pending Labs on day of discharge: Labs from last 24 hours 08/03/22 08/03/22 07:40 07:40 WBC 5.31 RBC 3.94 Hgb 12.0 Hct 36.9 MCV 94 MCH 30.5 MCHC 32.5 RDW 14.7 H Plt Count 130 MPV 11.2 H Immature Gran % 0.4 Neutrophils % 65.4 Lymphocytes % 24.7 Monocytes % 7.0 Eosinophils % 1.7 Basophils % 0.8 Nucleated RBC % 0.0 Absolute Neutrophils 3.48 Absolute Lymphocytes 1.31 Absolute Monocytes 0.37 Absolute Eosinophils 0.09 Absolute Basophils 0.04 Sodium 140 Potassium 3.8 Chloride 103 Carbon Dioxide 28.1 Anion Gap 8.9 BUN 8 Creatinine 1.2 H Est GFR (CKD-EPI 2020) 48.09 Glucose 104 Calcium 9.3 Total Bilirubin 1.2 H Conjugated Bilirubin 0.7 H AST 56 H ALT 97 H Alkaline Phosphatase 226 H Total Protein 7.8 Albumin 3.1 L PFSH All Active Problems Chest pain (Acute) Discharge planning issues (Acute) Cirrhosis (Acute) Type 2 diabetes mellitus (Chronic) Choledocholithiasis with obstruction (Acute) Conductive hearing loss in left ear (Acute) Acute serous otitis media, left ear (Acute) Total perforations of tympanic membrane, right ear (Acute) Nail dystrophy (Acute) Hyperlipidemia (Chronic) HTN (hypertension) (Chronic) Postmenopausal bleeding (Acute) Tubular adenoma of colon (Acute) history of colonic polyps Diverticulosis (Acute ~09/2020) Medical History Ankle edema Blood glucose elevated 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 states she has had this all her life Patent foramen ovale pt. states she has had this all her life Perforation of right tympanic membrane Prediabetes Right leg pain Rotator cuff syndrome Rupture of flexor tendon of thumb Sebaceous cyst Seborrheic dermatitis Seborrheic keratosis Skin lesion of face Skin neoplasm TMJ dysfunction Tubular adenoma of colon (08/20/17) Surgical History Arthroplasty of knee (12/17/15) RIGHT/DR. GORE-menisicus repaired Colonoscopy - MAC (08/20/17) History of cholecystectomy History of colonoscopy (~09/2020) History of knee replacement 09/30/20 Pt denies. only meniscus repairs Hx of dilation and curettage x3 S/P skin biopsy Social History Smoking/Tobacco Use Status: Never Smoking risk assessment performed?: Yes Alcohol Intake: never Drug use: Never Substance use type: does not use Current gender identity: female Do you feel safe at home: Yes Do you feel safe in your relationship?: Yes Female Reproductive History Menstrual Age of Menarche: 11 control method: none History History 1 Para 1 Hx # Term Pregnancies Multiple births Hx # Pregnancies Ectopic pregnancies AB induced Hx Number of Living Children AB spontaneous Past Pregnancies Del. Date GA/Weeks # Preg Succ Route Wgt Sex Labor Lgth Anesth esia Location [facility] 01/26/85 40 No Yes vaginal 2041.166 g Male Delivery Date: 01/26/85 Last Updated by: Debi Murphy Pt reports had placenta adhered to uterine wall and went right to OR for D&C. Pt hospitalized from about 7 months until delivery for placental issues. Time Spent with Patient Time Spent with Patient: <45 minutes Time was spent: preparing to see the patient(eg.review tests), ordering medications,tests, procedures, indepentently interpreting results, counseling the patient and care coordination
--- NOTE | 2022-08-03 12:30 | PDOC.CMDIS ---
- If Service Date Differs Date of service: 08/03/22 Time of Service: 12:30 LACE Index Scoring Tool - Questions: Length of Stay (in days): 4 - 6 Acuity (Admit via E.D.?): Yes Comorbidities: Diabetes w/o Complication, Liver or Renal Disease E.D. Visits: 1 - Answers: Total Score: 13 Risk of Readmission: High Risk Care Management Discharge Reason for Hospitalization: Choledocholithiasis with obstruction, NIDDM Discharge Plan: Oly returned home today with no new services. She will be driven home via private vehicle by family. She will follow up with her PCP and discharge plan of care. She is happy to be going home. Patient/Family Education Needs: Review discharge instructions and limitations, discussion of self care needs including ask me three.
== END 2022-08-03 13:18 | disposition home or self-care (01) | DRG 445 ==
LOC: ER 07-28 00:05 → MS 07-28 00:29
PROVIDERS: Family Medicine; Internal Medicine; Surgery; Admitting Provider Family Medicine; Emergency Provider Physician Assistant; PCP Nurse Practitioner Family; Visit Provider Family Medicine
DX: K80.51 Calculus of bile duct without cholangitis or cholecystitis with obstruction (principal); Q21.12 Patent foramen ovale; Q25.0 Patent ductus arteriosus; E11.9 Type 2 diabetes mellitus without complications; I10 Essential (primary) hypertension; E78.5 Hyperlipidemia, unspecified; K21.9 Gastro-esophageal reflux disease without esophagitis; Z85.42 Personal history of malignant neoplasm of other parts of uterus; Z90.710 Acquired absence of both cervix and uterus; Z92.3 Personal history of irradiation; H90.12 Conductive hearing loss, unilateral, left ear, with unrestricted hearing on the contralateral side; Z86.010 Personal history of colon polyps; K57.90 Diverticulosis of intestine, part unspecified, without perforation or abscess without bleeding; E66.9 Obesity, unspecified; Z68.36 Body mass index [BMI] 36.0-36.9, adult; M85.80 Other specified disorders of bone density and structure, unspecified site; N28.9 Disorder of kidney and ureter, unspecified; K74.60 Unspecified cirrhosis of liver; Z90.49 Acquired absence of other specified parts of digestive tract
CPT/HCPCS: 36415; 36416; 43262; 71275; 80048; 80053; 80061; 80076; 82962; 83690; 84145; 85027; 85652; 87635; 93005; 96365; 96366; 99222; 99285; 74174; 74177; 74181; 76705; 82248; 82977; 83605; 83735; 84484; 85025; 85610; 86038; 86140; 93010; 99223; 99231; 99232; 99233; 99238; 99291; A0425; A0428; G0378; J0780; J1644; J1885; J1941; J2543; J3475; J3490; Q9967

== ENCOUNTER 2022-08-09 02:55 | Outpatient (CLI) | payer MEDICARE, MEDICAID, SELFPAY ==
[2022-08-09 15:20] LABS: ALT 111 U/L (14-59); AST 104 U/L (15-37); Albumin 3.3 g/dL (3.4-5.0); Alkaline Phosphatase 177 U/L (46-116); Bilirubin, Direct 0.4 mg/dL (0.0-0.2); Bilirubin, Total 0.8 mg/dL (0.2-1.0); Total Protein 8.2 g/dL (6.4-8.2)
== END 2022-08-09 02:56 | disposition home or self-care (01) ==
LOC: LBO 02:55
PROVIDERS: PCP Nurse Practitioner Family; Visit Provider Internal Medicine
DX: K80.51 Calculus of bile duct without cholangitis or cholecystitis with obstruction (principal); K74.60 Unspecified cirrhosis of liver
CPT/HCPCS: 36415; 80076

== ENCOUNTER 2022-08-17 11:16 | Outpatient (REF) | payer MEDICARE, MEDICAID, SELFPAY ==
[2022-08-17 17:03] LABS: ALT 71 U/L (14-59); AST 63 U/L (15-37); Albumin 3.3 g/dL (3.4-5.0); Alkaline Phosphatase 137 U/L (46-116); Bilirubin, Direct 0.3 mg/dL (0.0-0.2); Bilirubin, Total 0.7 mg/dL (0.2-1.0); Magnesium 1.4 mg/dL (1.8-2.4); Total Protein 7.4 g/dL (6.4-8.2)
[2022-08-17 17:10] LABS: Hemoglobin A1C 5.3 % (<5.7)
== END 2022-08-17 11:17 | disposition home or self-care (01) ==
LOC: NCHCN 11:16
PROVIDERS: PCP Nurse Practitioner Family; Visit Provider Nurse Practitioner Family
DX: R79.89 Other specified abnormal findings of blood chemistry (principal); Z79.899 Other long term (current) drug therapy; K74.60 Unspecified cirrhosis of liver; E11.9 Type 2 diabetes mellitus without complications
CPT/HCPCS: 80076; 83036; 83735

== ENCOUNTER 2022-09-28 00:52 | Outpatient (CLI) | payer MEDICARE, MEDICAID, SELFPAY ==
--- NOTE | 2022-09-28 | DI.US_ITS ---
Exam(s) MG MAMMO DIAGNOSTIC UNI US BREAST RT COMPLETE EXAM: MG MAMMO DIAGNOSTIC UNI-RIGHT COMPLETE RIGHT BREAST ULTRASOUND CLINICAL HISTORY: ABNL MAMMO RIGHT R92.8 FROM 03/2022 6 MO FU. TECHNIQUE: Unilateral RIGHT BREAST CC AND MLO mammographic images were obtained with 3D tomosynthesi s technique and utilizing computer aided detection (CAD). COMPLETE RIGHT BREAST ULTRASOUND was performed including all 4 quadrants as well as the retroareolar region and the right axilla. COMPARISON: Prior mammograms were reviewed, the most recent being March 2022. Prior ultrasound a t that time was also reviewed. FINDINGS: DIAGNOSTIC RIGHT BREAST MAMMOGRAM: Benign-appearing microcalcifications again noted medially. Previously described small nodular densities in the retroareolar region appear unchanged. No new spiculated masses. COMPLETE RIGHT BREAST ULTRASOUND: Previously described micro cyst at the 1-2 o'clock position is again noted and appears unchanged, brandon suring approximately 3 millimeters.. At the 10 o'clock position there are few additional microcysts with similar 3 mm size. No new solid lesions in all 4 quadrants. Scanning of the right axilla is negative for adenopathy. IMPRESSION: 1. Stable benign-appearing right breast mammographic findings. 2. Benign-appearing right breast ultrasound findings (microcysts only) as described above. Appropriate follow-up is to keep this patient on a yearly mammogram schedule and I recommend repeatin g the ultrasound examination at time for next yearly mammogram.. The patient was informed of the findings and follow-up recommendations prior to leaving the [facility] t today. BI-RADS Category 2 - Benign Findings Breast Density - Category B - Scattered areas of fibroglandular density Breast density Category C or D implies that the patient has dense breast tissue. Dense breast tissue can make it harder to find cancer on a mammogram. Dense breast tissue is also associated with an incr eased risk of breast cancer. This information about the result of the mammogram report was provided to the patient to raise their awareness. Use this report when you speak with the patient about their risks for breast cancer, which includes their family history. At that time, you may recommend additional screening tests (Ultrasoun d or MRI) as these tests may add significant information. A negative radiographic report should not delay biopsy if a dominant or clinically suspicious mass is present. Up to ten percent of cancers are not identified on mammography. A negative report may reinforce clinical impression. Adenosis and dense breasts may obscure an underlying neoplasm. False positive reports average 6 to 10%. Patient will receive a letter notifying them of these results.
== END 2022-09-28 01:12 ==
LOC: DI 00:52
PROVIDERS: PCP Nurse Practitioner Family; Visit Provider Nurse Practitioner Family
DX: R92.8 Other abnormal and inconclusive findings on diagnostic imaging of breast (principal); Z12.31 Encounter for screening mammogram for malignant neoplasm of breast
CPT/HCPCS: 76642; 77061; 77065; G0279

== ENCOUNTER 2022-11-01 12:11 | Outpatient (REF) | payer MEDICARE, MEDICAID, SELFPAY ==
[2022-11-01 17:14] LABS: ALT 56 U/L (14-59); AST 54 U/L (15-37); HDL Cholesterol 52 mg/dL (40-60); LDL CHOLESTEROL 61 mg/dL (<100); Magnesium 1.6 mg/dL (1.8-2.4)
[2022-11-01 18:24] LABS: Creatine Kinase 71 U/L (26-192)
== END 2022-11-01 12:12 | disposition home or self-care (01) ==
LOC: NCHCN 12:11
PROVIDERS: PCP Nurse Practitioner Family; Visit Provider Nurse Practitioner Family
DX: Z51.81 Encounter for therapeutic drug level monitoring (principal); R79.89 Other specified abnormal findings of blood chemistry; K74.60 Unspecified cirrhosis of liver
CPT/HCPCS: 82550; 83721; 83718; 83735; 84450; 84460

== ENCOUNTER → 2022-12-21 13:04 | Outpatient (BNVA) | payer MEDICARE, MEDICAID, SELFPAY | PROVIDERS: PCP Nurse Practitioner Family; Referring Provider Podiatrist; Visit Provider Physical Therapy Assistant | DX: I73.9 Peripheral vascular disease, unspecified (principal) | CPT/HCPCS: 93922 ==

== ENCOUNTER → 2023-05-14 02:29 | Outpatient (CLI) | payer MEDICARE, SELFPAY ==
--- NOTE | 2023-05-14 | DI.US_ITS ---
Exam(s) US BREAST RT COMPLETE MAMMO DIAGNOSTIC BI EXAM: MAMMO DIAGNOSTIC BI and U/S breast RT complete CLINICAL HISTORY: NIPPLE DISCHARGE N64.52. TECHNIQUE: Craniocaudal and mediolateral oblique Full Field Digital Mammography views with Computer Aided Diagnosis followed by Tomosynthesis and right breast ultrasound. COMPARISON: US US BREAST RT COMPLETE from 05/14/2023 FINDINGS: Mammography/Tomosynthesis: Masses/Architectural Distortion: None seen. Microcalcifictions: No suspicious pleomorphic-type are seen. Stable benign type calcifications are se en in both breasts. Skin Thickening/Nipple Retraction: None. Complete right breast US: All 4 quadrants of the right breast were evaluated sonographically includin g the retroareolar and right axillary regions. Echotexture: Normal appearance of the glandular tissue. Shadowing: No suspicious foci. Cyst: None. Solid lesions: None seen. Ductal dilation: None. IMPRESSION: 1. No evidence of malignancy is noted. 2. Unless there is more urgent need, follow-up screening mammography is recommended, as per [employer] guidelines. 3. The findings were discussed with the patient on the date of the examination. BI-RADS Category 2 - Benign Findings Breast Density - Category B - Scattered areas of fibroglandular density Breast density Category C or D implies that the patient has dense breast tissue. Dense breast tissue can make it harder to find cancer on a mammogram. Dense breast tissue is also associated with an incr eased risk of breast cancer. This information about the result of the mammogram report was provided to the patient to raise their awareness. Use this report when you speak with the patient about their risks for breast cancer, which includes their family history. At that time, you may recommend additional screening tests (Ultrasoun d or MRI) as these tests may add significant information. A negative radiographic report should not delay biopsy if a dominant or clinically suspicious mass is present. Up to ten percent of cancers are not identified on mammography. A negative report may reinforce clinical impression. Adenosis and dense breasts may obscure an underlying neoplasm. False positive reports average 6 to 10%. Patient will receive a letter notifying them of these results.
== END ==
PROVIDERS: PCP Nurse Practitioner Family; Visit Provider Nurse Practitioner Family
DX: R92.8 Other abnormal and inconclusive findings on diagnostic imaging of breast (principal); Z12.31 Encounter for screening mammogram for malignant neoplasm of breast
CPT/HCPCS: 76642; 77062; 77066; G0279

== ENCOUNTER → 2023-05-30 12:45 | Outpatient (BNVA) | payer MEDICARE, SELFPAY | PROVIDERS: PCP Nurse Practitioner Family; Referring Provider Nurse Practitioner Family; Visit Provider Podiatrist | DX: E11.9 Type 2 diabetes mellitus without complications (principal); I73.9 Peripheral vascular disease, unspecified; L60.3 Nail dystrophy; B35.1 Tinea unguium | CPT/HCPCS: 11721 ==

== ENCOUNTER → 2023-10-03 14:52 | Outpatient (BNVA) | payer MEDICARE, SELFPAY | PROVIDERS: PCP Nurse Practitioner Family; Referring Provider Nurse Practitioner Family; Visit Provider Podiatrist | DX: N18.30 Chronic kidney disease, stage 3 unspecified (principal); E11.51 Type 2 diabetes mellitus with diabetic peripheral angiopathy without gangrene; L60.3 Nail dystrophy; B35.1 Tinea unguium; R60.0 Localized edema; L84 Corns and callosities; R09.89 Other specified symptoms and signs involving the circulatory and respiratory systems; L60.2 Onychogryphosis; R23.8 Other skin changes; L65.9 Nonscarring hair loss, unspecified | CPT/HCPCS: 11721 ==

== ENCOUNTER 2023-10-22 13:30 | Outpatient (REF) | payer MEDICARE, SELFPAY ==
[2023-10-22 15:53] LABS: ALT 53 U/L (14-59); AST 50 U/L (15-37); Albumin 3.3 g/dL (3.4-5.0); Alkaline Phosphatase 106 U/L (46-116); Anion Gap 6.9 mmol/L (3-11); BUN 15 mg/dL (7-18); Bilirubin, Total 0.63 mg/dL (0.2-1.0); CO2 30.1 mmol/L (21.0-32.0); CREATININE 1.2 mg/dL (0.55-1.02); Calcium 9.4 mg/dL (8.5-10.1); Chloride 105 mmol/L (98-107); Glucose 174 mg/dL (74-106); Magnesium 1.7 mg/dL (1.8-2.4); Potassium 4.1 mmol/L (3.5-5.1); Sodium 142 mmol/L (136-145); Total Protein 7.8 g/dL (6.4-8.2); Uric Acid 6.5 mg/dL (2.6-6.0)
[2023-10-22 17:48] LABS: Calculated LDL 53 mg/dL (<100); Cholesterol 132 mg/dL (<200); HDL Cholesterol 56 mg/dL (40-60); Triglyceride 119 mg/dL (<150)
[2023-10-23 09:57] LABS: Hemoglobin A1C 5.8 % (<5.7)
== END 2023-10-22 13:31 | disposition home or self-care (01) ==
LOC: NCHCN 13:30
PROVIDERS: PCP Nurse Practitioner Family; Visit Provider Nurse Practitioner Family
DX: E78.5 Hyperlipidemia, unspecified (principal); E11.9 Type 2 diabetes mellitus without complications; E79.0 Hyperuricemia without signs of inflammatory arthritis and tophaceous disease; K21.9 Gastro-esophageal reflux disease without esophagitis; R94.5 Abnormal results of liver function studies; Z79.899 Other long term (current) drug therapy
CPT/HCPCS: 80053; 80061; 82306; 83036; 83735; 84550

== ENCOUNTER 2024-03-06 19:05 | Outpatient (REF) | payer MEDICARE, SELFPAY ==
[2024-03-06 19:21] LABS: Abs Immature Grans 0.02 10^3/uL (0.0-0.06); Absolute Basophil Count 0.02 10^3/uL (0.0-0.2); Absolute Eosinophil Count 0.09 10^3/uL (0.0-0.7); Absolute Lymphocyte Count 1.14 10^3/uL (1.2-3.4); Absolute Monocyte Count 0.32 10^3/uL (0.1-0.8); Absolute Neutrophil Count 2.61 10^3/uL (1.2-6.7); Basophils % 0.5 %; Eosinophils % 2.1 %; HCT 35.3 % (36.0-46.0); HGB 11.4 g/dL (11.2-15.7); Immature Grans % 0.5 %; Lymphocytes % 27.1 %; MCH 31.3 pg (27.0-33.0); MCHC 32.3 % (32.0-36.0); MCV 97 fL (80-95); Monocytes % 7.6 %; Neutrophils % 62.2 %; RBC 3.64 10^6/uL (3.93-5.22); RDW 14.1 % (11.7-14.6); RDW-SD 49.8 fL
[2024-03-06 19:24] LABS: INR 1.1 (0.9-1.1)
[2024-03-06 19:44] LABS: ALT 55 U/L (14-59); AST 64 U/L (15-37); Albumin 3.4 g/dL (3.4-5.0); Alkaline Phosphatase 119 U/L (46-116); Anion Gap 6.5 mmol/L (3-11); BUN 18 mg/dL (7-18); CO2 28.5 mmol/L (21.0-32.0); CREATININE 1.1 mg/dL (0.55-1.02); Calcium 9.3 mg/dL (8.5-10.1); Chloride 108 mmol/L (98-107); Estimated GFR 53.06 (mL/min/1.73m2); Glucose 106 mg/dL (74-106); Magnesium 1.7 mg/dL (1.8-2.4); Potassium 4.4 mmol/L (3.5-5.1); Sodium 143 mmol/L (136-145); Total Protein 7.3 g/dL (6.4-8.2); Uric Acid 5.6 mg/dL (2.6-6.0)
[2024-03-06 19:51] LABS: Platelet Count 92 10^3/uL (130-400)
== END 2024-03-06 19:06 | disposition home or self-care (01) ==
LOC: NCHCN 19:05
PROVIDERS: PCP Nurse Practitioner Family; Visit Provider Nurse Practitioner Family
DX: E11.9 Type 2 diabetes mellitus without complications (principal); K74.60 Unspecified cirrhosis of liver
CPT/HCPCS: 80053; 83036; 83735; 84550; 85025; 85610

== ENCOUNTER → 2024-08-27 13:56 | Outpatient (BNVA) | payer MEDICARE, SELFPAY | PROVIDERS: PCP Nurse Practitioner Family; Referring Provider Nurse Practitioner Family; Visit Provider Podiatrist | DX: L60.3 Nail dystrophy (principal); B35.1 Tinea unguium; L84 Corns and callosities; N18.30 Chronic kidney disease, stage 3 unspecified; E11.51 Type 2 diabetes mellitus with diabetic peripheral angiopathy without gangrene; R60.0 Localized edema; R09.89 Other specified symptoms and signs involving the circulatory and respiratory systems; L53.8 Other specified erythematous conditions; I83.93 Asymptomatic varicose veins of bilateral lower extremities; L65.9 Nonscarring hair loss, unspecified; R20.8 Other disturbances of skin sensation; R23.8 Other skin changes; L60.2 Onychogryphosis; L60.8 Other nail disorders; L85.8 Other specified epidermal thickening | CPT/HCPCS: 11056; 11721 ==

== ENCOUNTER 2024-10-30 21:37 | Outpatient (REF) | payer MEDICARE, SELFPAY ==
[2024-10-30 22:16] LABS: COMMENT (LAB VIEW ONLY) 171.56 mg/dL; Microalb ug/mg Crea 3.8 ug/mg Cr
== END 2024-10-30 21:38 | disposition home or self-care (01) ==
LOC: NCHCN 21:37
PROVIDERS: PCP Nurse Practitioner Family; Visit Provider Nurse Practitioner Family
DX: E11.9 Type 2 diabetes mellitus without complications (principal)
CPT/HCPCS: 82043; 82570

== ENCOUNTER → 2025-01-19 14:19 | Outpatient (BNVA) | payer MEDICARE, SELFPAY | PROVIDERS: PCP Nurse Practitioner Family; Referring Provider Nurse Practitioner Family; Visit Provider Podiatrist | DX: L60.3 Nail dystrophy (principal); B35.1 Tinea unguium; N18.30 Chronic kidney disease, stage 3 unspecified; E11.51 Type 2 diabetes mellitus with diabetic peripheral angiopathy without gangrene; R09.89 Other specified symptoms and signs involving the circulatory and respiratory systems; R60.0 Localized edema; L53.8 Other specified erythematous conditions; I83.93 Asymptomatic varicose veins of bilateral lower extremities; L65.9 Nonscarring hair loss, unspecified; R23.4 Changes in skin texture; L60.2 Onychogryphosis; L60.8 Other nail disorders; L85.8 Other specified epidermal thickening | CPT/HCPCS: 11721 ==